=== PATIENT | male | born 1960 | race Caucasian/White ===

== ENCOUNTER 2020-12-17 15:41 | Outpatient (REF) | payer OTHER, SELFPAY ==
[2020-12-17 14:35] LABS: Anion Gap 8.4 mmol/L (3-11); BUN 21 mg/dL (7-18); CO2 25.6 mmol/L (21.0-32.0); Calcium 9.4 mg/dL (8.5-10.1); Calculated LDL 125 mg/dL (<100); Chloride 105 mmol/L (98-107); Cholesterol 229 mg/dL (<200); Glucose 104 mg/dL (74-106); HDL Cholesterol 58 mg/dL (40-60); Potassium 4.1 mmol/L (3.5-5.1); Sodium 139 mmol/L (136-145); Triglyceride 233 mg/dL (<150)
== END 2020-12-17 16:01 ==
LOC: NCHCN 15:41
PROVIDERS: PCP Physician Assistant; Visit Provider Physician Assistant
DX: I10 Essential (primary) hypertension (principal); Z12.5 Encounter for screening for malignant neoplasm of prostate
CPT/HCPCS: 80048; 80061; 84153

== ENCOUNTER 2021-01-18 07:14 | Day surgery (SDC) | payer OTHER, SELFPAY ==
[2021-01-18 07:41] VITALS: BP 149/93; PULSE 80; RESP 20; TEMP 36.6; O2SAT 95
[2021-01-18] MEDS: Lactated Ringers 1,000 ML 80 ML IV (07:56)
--- NOTE | 2021-01-18 08:50 | BONE_PTH ---
PATIENT: Keon Jackson LOC: [facility] U#:[id number] AGE/SX: 60/M ROOM: RE01/18/[address]: Bob Moran : 1960 BED: DIS: 01/18/2021 SPEC #: [id number] RECD: 01/18/21 12:43 STATUS: CUONG REQ #: [id number] RENETTA: 01/18/21 08:[address]: Bob Moran DEPT: Surgical Specimen RECD BY: Ida Galvez ENTERED: 01/18/21 12:44 SP TYPE: Bone OTHR DR: Terrence Ramos Tissues: 1 - BONE BX/CURRETTE NOT PATH FRACTURE Procedures: GROSS AND MICRO LEVEL 4 DECALCIFICATION Comments: [id number]
--- NOTE | 2021-01-18 09:12 | W.PM.DSUDISC ---
Discharge Plan Disposition Patient Disposition: HOME Condition: Good Discharge Details Reason For Visit: Resection exostosis left hallux Attending Provider: Bob Moran Primary Care Provider: Terrence Ramos Home Meds and New Rx's Prescriptions: New ibuprofen 600 mg tablet 600 mg PO Q6H PRN (Reason: pain and inflamation) Qty: 60 RF: 0 hydrocodone-acetaminophen 7.5-325 mg tablet 1 tab PO Q6H Qty: 9 RF: 0 Continued hydrochlorothiazide 12.5 mg tablet 12.5 mg PO DAILY RF: 0 Discharge Instructions Activity:: Elevate Remove Dressings/Wound Care:: Do Not Remove Shower/Bathe:: Cover Diet:: Normal Diet Discharge Orders Discharge Orders: Discharge Order (Routine); Ordered 01/18/21 Ordered By: Bob Moran DS: Diagnosis Discharge Diagnosis (1) Exostosis of bone of foot: Status: Acute
--- NOTE | 2021-01-18 09:19 | ROE_ITS ---
Date of service: 01/18/21 Time of Service: 09:19 Operative Note Operative Note Keon was brought to the operative suite placed in the supine position with the left foot was prepped and draped in the usual sterile podiatric fashion. Timeout was performed by standard protocol for safe surgery. The left great toe was anesthetized with 7 cc of a 50: 50 mixture, 1% lidocaine with epinephrine 1 100,000, 0.5% Marcaine plain. Esmarch tourniquet was applied at the base of the great toe. Attention was directed to the great toe where a large granuloma are seen emanating from the medial nail fold. The nail plate appears deeply cryptotic along the medial groove and fungal. With a straight hemostat, the medial edge of the nail plate was loosened from the nail bed and with double- action bone cutting forceps the nail was split at its point of curvature and avulsed free of the nailbed. The granuloma was then dissected up from the nailbed and surrounding the nail groove and excised at its base. Bony material was noted with in the granuloma tissue. The soft tissue mass was placed in a pathology container with formalin. A bony projection is then appreciated coming from the medial portion dorsal aspect of the distal phalanx of the hallux. The periosteum was split proximal and distal to the exostosis and periosteum lifted. Once the bone spur was exposed it was removed from the distal phalanx with an osteotome and mallet. This fragment of bone was sent to the same container as the granuloma to pathology in formalin. The base of the exostosis was then rasped smooth and copiously irrigated. The periosteum was repaired with simple interrupted suture 4-0 Vicryl. Gelfoam was applied into the nail groove followed by Xeroform gauze fluff compression dressings. Mitesh left the OR with vital signs stable vascular status intact sharp and sponge counts were correct. He will be followed by myself in the office next week.
== END 2021-01-18 09:59 | disposition home or self-care (01) ==
PROVIDERS: PCP Physician Assistant; Visit Provider Podiatrist
PROC: (CPT 28288; principal; 2021-01-18 08:45)
DX: M89.8X7 Other specified disorders of bone, ankle and foot (principal); M89.9 Disorder of bone, unspecified; L92.8 Other granulomatous disorders of the skin and subcutaneous tissue
CPT/HCPCS: 28124; 28043; 88305; 88304; 88311

== ENCOUNTER 2021-08-28 10:40 | Inpatient (IN) | payer OTHER, SELFPAY ==
[2021-08-28] VITALS (142 sets, daily range): BP systolic 115–212; BP diastolic 61–171; PULSE 53–137; RESP 15–35; TEMP 36.4–37.5; O2SAT 84–95
--- NOTE | 2021-08-28 11:00 | RT.EKG_ITS ---
APPROVED REPORT Exam: Resting ECG Reason for Exam: shortness of breath Patient Location: E HR:101 bpm ECG Measurements Heart Rate 101 AXIS NH 150 P 71 QRSd 106 QRS -43 QT 350 T 36 QTc 455 Conclusion Sinus tachycardia...rate> 99 Incomplete RBBB and LAFB...axis(240,-40), S>R II III aVF. Sinus. Incomplete RBBB and LAFB. No STEMI. I have reviewed and interpreted ECG and agree with software generated interpretation.
--- NOTE | 2021-08-28 11:18 | DI.CT_ITS ---
Exam(s) CT CHEST PE CTA EXAM: CT CHEST PE CTA CLINICAL HISTORY: shortness of breath, r/o pneumonia vs pe. TECHNIQUE: Imaging Protocol: CT angiography of the chest was performed using pulmonary embolus marlo col. Multi planar reconstructions were performed. 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 LUNGS: There are extensive ground-glass and confluent infiltrates throughout both lungs involving all lobes, not associated with pleural effusions.. MEDIASTINUM: There is adenopathy in left suprahilar region. No adenopathy in the aortopulmonic windo w nor in the anterior mediastinal fat. Slightly increased lymph nodes are noted in the subcarinal re gion. Actual hilar regions exhibit no obvious adenopathy scratch CARDIAC: Cardiomegaly. No pericardial effusion.Caliber of the thoracic aorta is within normal limits . There is no significant shift of the interventricular septum. PARTIALLY VISUALIZED UPPERMOST ABDOMEN: Not included OSSEOUS: No significant osseous lesions.. IMPRESSION: 1. Study is positive for pulmonary emboli in right lower lobe pulmonary arteries.. 2. Extensive bilateral pulmonary infiltrates, not associated with pleural effusions. Recommend testi ng for Covid 19 3. Cardiomegaly. No pericardial effusion RADIATION DOSE DELIVERED: 719.75mGy.cm Total DLP DATA REPOSITORY: All CT scans at this facility are submitted to the National Radiology Data Registry (NRDR) Dose Index Registry (DIR) with the [employer] ([employer]). RADIATION OPTIMIZATION: All CT scans at this facility use at least one of these dose optimization te chniques: automated exposure control; mA and/or kV adjustment per patient size (includes targeted exa ms where dose is matched to clinical indication); or iterative reconstruction.
[2021-08-28 11:21] LABS: Abs Immature Grans 0.02 10^3/uL (0.0-0.06); Absolute Basophil Count 0.01 10^3/uL (0.0-0.2); Absolute Lymphocyte Count 0.64 10^3/uL (1.2-3.4); Absolute Monocyte Count 0.28 10^3/uL (0.1-0.8); Absolute Neutrophil Count 4.49 10^3/uL (1.2-6.7); Basophils % 0.2; HCT 44.9 % (40.0-50.0); HGB 14.8 g/dL (13.5-17.5); Immature Grans % 0.4; Lymphocytes % 11.8; MPV 10.2 fL (8.0-11.0); Monocytes % 5.1; Neutrophils % 82.5; Nucleated RBC 0 %; Platelet Count 150 10^3/uL (130-400); RBC 5.28 10^6/uL (4.36-5.78); RDW 14.3 % (11.8-14.1); RDW-SD 44.3 fL; WBC 5.44 10^3/uL (4.4-10.8)
--- NOTE | 2021-08-28 11:21 | ED.GENADUL_ITS ---
Discharge Plan Disposition Patient Disposition: [facility] INPATIENT Condition: Serious Discharge Details Clinical Impression: Pneumonia due to COVID-19 virus, Pulmonary embolism, Hypoxia, Acute respiratory distress Admit Date/Time: 08/28/21 13:45 Admit Provider: Rossy Richardson Attending Provider: Rossy Richardson Primary Care Provider: Terrence Ramos ED Provider: Dorothy Baird Discharge Data Discharge Date/Time-TO BE ENTERED AT DEPARTURE: 08/28/21 21:51 Medical Decision Making 1110 -- 60-year-old male with a history of morbid obesity and hypertension diagnosed with COVID-19 4 days ago presents with increasing dyspnea. Patient ambulated back to the ED room. His oxygen saturation is 84% on room air, increased to mid 90s on 3 L. He has diminished breath sounds throughout but no obvious crackles or wheezing. He is speaking in full sentences and appears nontoxic. Consider Covid pneumonia versus PE. Will obtain screening labs, CT chest, IV Solu-Medrol, duo nebs, fluids and reassess. 1200 -- Labs reviewed. White blood cell count 5.44. Hemoglobin 14.8. Lactate 1. AST 82. ALT 75. Troponin negative. Rapid Covid swab positive. 1330 -- CT chest results: IMPRESSION: 1. Study is positive for pulmonary emboli in right lower lobe pulmonary arteries.. 2. Extensive bilateral pulmonary infiltrates, not associated with pleural effusions. Recommend testing for Covid 19. 3. Cardiomegaly. No pericardial effusion. Patient reassessed and he states his breathing is slightly better but not significantly improved. His breath sounds have somewhat improved throughout. O2 saturations continue to remain in the high 80s on room air, increased to the mid 90s on 3 L NC O2. He appears to be breathing somewhat better, but his body habitus may be contributing to his difficulty laying back on the stretcher and he is sitting on the side of the stretcher. We will admit patient to the hospital for COVID-19 pneumonia in the setting of supplemental oxygen requirement, anticoagulation for PE and additional COVID-19 treatment. We will give another albuterol neb and Ativan. We will continue IV fluid hydration. Patient informed of his results and is agreeable with plan for admission. Case discussed with hospitalist who accepts patient for admission. Will order a dose of Lovenox SC. No recommendations for antibiotics at this time. Medical Records Medical records reviewed: Yes I reviewed the patient's medical records. Imaging Data Radiologic Study: Radiologist's impression: CT CHEST PE CTA CLINICAL HISTORY: shortness of breath, r/o pneumonia vs pe. TECHNIQUE: Imaging Protocol: CT angiography of the chest was performed using pulmonary embolus protocol. Multi planar reconstructions were performed. 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 LUNGS: There are extensive ground-glass and confluent infiltrates throughout both lungs involving all lobes, not associated with pleural effusions.. MEDIASTINUM: There is adenopathy in left suprahilar region. No adenopathy in the aortopulmonic window nor in the anterior mediastinal fat. Slightly increased lymph nodes are noted in the subcarinal region. Actual hilar regions exhibit no obvious adenopathy scratch CARDIAC: Cardiomegaly. No pericardial effusion.Caliber of the thoracic aorta is within normal limits. There is no significant shift of the interventricular septum. PARTIALLY VISUALIZED UPPERMOST ABDOMEN: Not included OSSEOUS: No significant osseous lesions.. IMPRESSION: 1. Study is positive for pulmonary emboli in right lower lobe pulmonary arteries.. 2. Extensive bilateral pulmonary infiltrates, not associated with pleural effusions. Recommend testing for Covid 19 3. Cardiomegaly. No pericardial effusion Lab Data Lab results reviewed: Yes I reviewed the patient's lab results. ECG Data Attestation: I personally reviewed and interpreted this ECG (s) as follows: Interpretation: rate of 101, sinus, no acute ST elevation or depression. GA 150. QTc 455. HPI General Mode of arrival: ambulatory . Date/Time Provider Initiated Documentation: 08/28/21 10:53 . Limitations to Documentation: no limitations . Information obtained by: patient . HPI Narrative: Patient is a 60-year-old male with a history of morbid obesity and hypertension who was diagnosed with Covid 4 days ago presents with increasing shortness of breath over the last few days. Patient states he developed cold-like symptoms last week and his employer referred him for outpatient Covid testing which was positive 4 days ago. He is reported to still be going to work. He is not vaccinated for COVID. He states over the past few days he has had increasing cough and shortness of breath. He also admits to significant fatigue and decreased appetite. He denies any known fever, loss of sense of smell or taste, vomiting or diarrhea. Related Data Home Medications Medication Instructions Recorded Confirmed lisinopril-hydrochlorothiazide 1 tab PO DAILY 08/29/21 08/29/21 Allergies Allergy/AdvReac Type Severity Reaction Status Date / Time No Known Allergies Allergy Unverified 01/18/21 07:57 General Stated Complaint: RespSymp PK: 2 Review of Systems All systems reviewed & are unremarkable except as noted in HPI and below Constitutional Constitutional: Reports as per HPI, Denies chills, Reports fatigue, Denies fever(s) and Reports poor appetite Eyes Eyes: Denies blurry vision ENT Ears, Nose, Mouth, and Throat: Denies dizziness, Denies sore throat and Denies throat swelling Cardiovascular Cardiovascular: Denies chest pain and Reports dyspnea Respiratory Respiratory: Reports cough and Reports dyspnea Gastrointestinal Gastrointestinal: Denies abdominal pain, Denies diarrhea and Denies vomiting Genitourinary Genitourinary: Denies hematuria and Denies dysuria Musculoskeletal Musculoskeletal: Denies back pain and Denies numbness Integumentary/Breasts Skin/Breast: Denies lesions and Denies rash Neurologic Neurologic: Denies dizziness, Denies localized weakness and Denies numbness Endocrine Endocrine: Reports fatigue Allergic/Immunologic Allergic/Immunologic: Denies throat swelling [facility] Medical History (Updated 08/31/21 @ 08:23 by Dorothy Baird DO) History of hypertension Hyperlipidemia Obesity, morbid, BMI 40.0-49.9 Surgical History (Updated 08/28/21 @ 20:04 by Rossy Richardson MD) Hx of hernia repair L inguinal hernia repair Status post left foot surgery Family History (Updated 08/28/21 @ 20:04 by Rossy Richardson MD) Mother Diabetes Paternal Grandmother Cancer Paternal Aunt Cancer Social History Smoking/Tobacco Use Status: Current every day Tobacco Type: e-cigarettes Smoking risk assessment performed?: Yes Alcohol Intake: current Alcohol Intake frequency: a few times a week Alcohol type: beer Drug use: Never Substance use type: does not use Do you feel safe at home: Yes Additional Social history: lives alone Exam Const General: cooperative and no acute distress Nutritional Appearance: obese morbidly obese Orientation: alert, awake and oriented x3 HENMT Head: normal to inspection Face and sinus: normal facial exam Eyes General: appearance normal, both eyes and all related structures EOM: EOM intact bilaterally Neck Neck: normal visual inspection and No submandibular swelling Lymphatic: no lymphadenopathy noted Chest Chest: normal inspection of the chest and no tenderness Resp Effort & Inspection: normal respiratory effort and able to speak in complete sentences Auscultation: diminished lung sounds bilaterally throughout Cardio Rate: tachycardic Rhythm: regular rhythm GI Inspection: normal to inspection and obesity Palpation: soft, not firm, not rigid and nontender Auscultation: normal bowel sounds Skin General skin exam: no rashes or lesions noted Neuro General: patient alert, patient awake and patient oriented x3 Cognition: normal cognition Speech: speech normal Motor: muscle tone normal throughout Sensory Exam: no sensory deficits noted Extrem General: normal to inspection, full ROM, capillary refill normal, no calf tenderness bilaterally and no edema Psych Appearance: grossly normal Mental Status: mental status grossly normal Speech and Movement: speech and movement normal Affect: normal affect Course Vital Signs Vital signs: Vital Signs Temperature 99.5 F 08/28/21 10:49 Pulse 107 H 08/28/21 10:49 Blood Pressure 139/90 08/28/21 10:49 Pulse Oximetry 84 L 08/28/21 10:49 Temperature 99.5 F 08/28/21 10:49 Temperature Source Oral 08/28/21 10:49 Pulse 107 H 08/28/21 10:49 Blood Pressure 139/90 08/28/21 10:49 Pulse Oximetry 84 L 08/28/21 10:49 Oxygen Delivery Method Room Air 08/28/21 10:49 Oxygen Flow Rate 0 08/28/21 10:49 Pain Level 0 08/28/21 10:49 Critical Care Time Critical Care Time Critical Care Time: Yes Total Critical Care Time: 30 Attestation: I spent 30 minutes of critical care time with this patient. This does not include time spent on separately reported billable procedures.
[2021-08-28] MEDS: Normal Saline 1,000 ML 1000 ML IV (11:35)
[2021-08-28 11:39] LABS: ALT 75 U/L (16-63); AST 82 U/L (15-37); Albumin 2.9 g/dL (3.4-5.0); Alkaline Phosphatase 74 U/L (46-116); Anion Gap 6.8 mmol/L (3-11); BUN 13 mg/dL (7-18); Bilirubin, Total 0.5 mg/dL (0.2-1.0); CO2 30.2 mmol/L (21.0-32.0); CREATININE 1.1 mg/dL (0.70-1.30); Calcium 7.8 mg/dL (8.5-10.1); Chloride 94 mmol/L (98-107); Glucose 108 mg/dL (74-106); Potassium 3.7 mmol/L (3.5-5.1); Sodium 131 mmol/L (136-145)
[2021-08-28] MEDS: methylPREDNISolone SUCC 125 MG VIAL IVP (11:39)
[2021-08-28 11:40] LABS: Troponin I < 0.05 ng/mL (<0.06)
[2021-08-28 11:46] LABS: Source Nasal/Nares
[2021-08-28] MEDS: Albuterol/Ipratropium 3 ML UPD VIAL UPD (11:51)
[2021-08-28] MEDS: Normal Saline - Diluent 50 ML VIAL IV (12:29)
[2021-08-28] MEDS: Omnipaque 350 MG/ML 100 ML BTL IV (12:29)
[2021-08-28 12:51] LABS: COVID-19 PCR POSITIVE (Negative)
--- NOTE | 2021-08-28 14:11 | W.PM.HP.N ---
Date of service: 08/28/21 Time of Service: 19:18 Assessment and Plan Assessment and plan (1) COVID-19: Status: Acute Assessment and plan: Admit to ICU. Complicated by acute PEs. Treat with remdesivir, dexamethasone, baricitinib, anticoagulation. CPAP - encourage IS/acapella/proning. Will give 1 dose of lasix and no further IVF. No indication for antibiotics. Trend inflammatory markers. Supplement vitamin C/D. NPO. Full code. (2) Acute pulmonary embolism: Status: Acute Assessment and plan: Based on patient's weight, the patient is receiving lovenox 150 mg SC Q12hrs Obtain venous dopplers of BLEs. (3) Acute respiratory failure with hypoxia: Status: Acute Assessment and plan: Multifactorial - due to COVID-19 as well as acute PE. (4) Hypertension: Status: Chronic Assessment and plan: Holding outpatient hypertensives today as he received IV contrast. Consider resuming them tomorrow. (5) Discharge planning issues: Status: Acute Assessment and plan: Full code Admit to ICU. Total Critical Care Time 45 minutes. History of Present Illness History of Present Illness Chief Complaint: shortness of breath and cough Narrative: Mr Jackson is a 60 year old male with PMHx of hypertension, hyperlipidemia, obesity with BMI of 47.5, who was not vaccinated against COVID-19 and started experiencing symptoms of COVID-19 on 08/20/21. He was diagnosed with COVID-19 on 08/22/21, who presented to [facility] ED today complaining of cough and shortness of breath. The patient states his symptoms started 9 days ago. He describes a headache, weakness, stuffy nose, DORANTES, cough which was minimally productive. Denies chest pain. He was noted to be saturating 84% on RA. He was placed on 3L of O2 by NC. CTA of the chest revealed bilateral pulmonary infiltrates consistent with COVID-19 as well as pulmonary emboli in right lower lobe pulmonary arteries. The patient was initiated on therapeutic SC lovenox and hospitalist admission was requested. Since then, the patient's oxygen had to be increased to 6L by NC, after which he was transitioned to CPAP with FiO2 of 50%. Review of Systems All systems reviewed & are unremarkable except as noted in HPI and below [facility] Medical History (Updated 08/28/21 @ 20:08 by Rossy Richardson MD) History of hypertension Hyperlipidemia Obesity, morbid, BMI 40.0-49.9 Surgical History (Updated 08/28/21 @ 20:04 by Rossy Richardson MD) Hx of hernia repair L inguinal hernia repair Status post left foot surgery Family History (Updated 08/28/21 @ 20:04 by Rossy Richardson MD) Mother Diabetes Paternal Grandmother Cancer Paternal Aunt Cancer Social History Smoking/Tobacco Use Status: Current every day Tobacco Type: e-cigarettes Smoking risk assessment performed?: Yes Alcohol Intake: current Alcohol Intake frequency: a few times a week Alcohol type: beer Drug use: Never Substance use type: does not use Do you feel safe at home: Yes Additional Social history: lives alone Meds Allergies and Home Medications Allergies Allergy/AdvReac Type Severity Reaction Status Date / Time No Known Allergies Allergy Unverified 01/18/21 07:57 Home Medications Medication Instructions Recorded Confirmed Type hydrochlorothiazide 12.5 mg PO DAILY 01/18/21 01/18/21 History hydrocodone-acetaminophen 1 tab PO Q6H #9 tab 01/18/21 Rx ibuprofen 600 mg PO Q6H PRN #60 tab 01/18/21 Rx Exam Narrative Exam Narrative: General: Pleasant obese male who looks sick, A&Ox3 on CPAP, no dyspneic/tachypenic Neurological: A&ox3, no focal deficits Psychiatric: Appropriate speech pattern/content Skin: Visible skin intact HEENT: Atraumatic, normocephalic, EOMI, MMM, wearing CPAP - unable to examine oropharynx, no submandibular or cervical lymphadenopathy, no goiter or JVD Cardiovascular: RRR, no m/r/g Lungs: rales at B bases, sounds wet Gastrointestinal: soft, nontender, nondistended Genitourinary: deferred Extremities: trace edema to BLE's - symmetric, 2+ pedal pulses, no c/c. Results Imaging Additional studies: CTA chest: 1. Study is positive for pulmonary emboli in right lower lobe pulmonary arteries.. 2. Extensive bilateral pulmonary infiltrates, not associated with pleural effusions. Recommend testing for Covid 19 3. Cardiomegaly. No pericardial effusion EKG: ST, HR 101, incomplete RBBB/LAFB, no acute ischemia Labs Result diagrams: 08/28/21 11:10 08/28/21 11:10 Labs: Laboratory Results - last 24 hr 08/28/21 08/28/21 08/28/21 11:10 11:10 11:10 WBC 5.44 RBC 5.28 Hgb 14.8 Hct 44.9 MCV 85.0 MCH 28.0 MCHC 33.0 RDW 14.3 H Plt Count 150 MPV 10.2 Immature Gran % 0.4 Neutrophils % 82.5 Lymphocytes % 11.8 Monocytes % 5.1 Eosinophils % 0.0 Basophils % 0.2 Nucleated RBC % 0 Absolute Neutrophils 4.49 Absolute Lymphocytes 0.64 L Absolute Monocytes 0.28 Absolute Eosinophils 0.00 Absolute Basophils 0.01 VBG Lactate 1.0 Sodium 131 L Potassium 3.7 Chloride 94 L Carbon Dioxide 30.2 Anion Gap 6.8 BUN 13 Creatinine 1.1 Estimated GFR/1.73 m2 >= 60.00 Glucose 108 H Calcium 7.8 L Magnesium 2.0 Total Bilirubin 0.5 AST 82 H ALT 75 H Alkaline Phosphatase 74 Troponin I < 0.05 Total Protein 7.0 Albumin 2.9 L COVID-19 Source SARS-CoV-2 (PCR) 08/28/21 11:35 WBC RBC Hgb Hct MCV MCH MCHC RDW Plt Count MPV Immature Gran % Neutrophils % Lymphocytes % Monocytes % Eosinophils % Basophils % Nucleated RBC % Absolute Neutrophils Absolute Lymphocytes Absolute Monocytes Absolute Eosinophils Absolute Basophils VBG Lactate Sodium Potassium Chloride Carbon Dioxide Anion Gap BUN Creatinine Estimated GFR/1.73 m2 Glucose Calcium Magnesium Total Bilirubin AST ALT Alkaline Phosphatase Troponin I Total Protein Albumin COVID-19 Source Nasal/Nares SARS-CoV-2 (PCR) POSITIVE A* Last Vital Signs Temp 37.5 C 08/28/21 10:49 Pulse 101 H 08/28/21 13:31 Resp 26 H 08/28/21 13:31 BP 132/74 08/28/21 13:31 Pulse Ox 90 L 08/28/21 13:31
[2021-08-28] MEDS: LORazepam 2 MG/ML VIAL 1 MG IVP (15:05)
[2021-08-28] MEDS: Dexamethasone 4 MG/ML VIAL 6 MG IVP (15:05)
--- NOTE | 2021-08-28 15:23 | NUR.NOTE ---
pt provided with meal tray Nursing Note:
[2021-08-28] MEDS: Normal Saline 1,000 ML 150 ML IV (15:35)
[2021-08-28] MEDS: REMDESIVIR 200 MG in Normal Saline 250 ML 250 MG IVPB (15:41)
[2021-08-28] MEDS: Albuterol 2.5 MG/3 ML INH SOLN VIAL 5 MG UPD (15:44)
[2021-08-28 15:46] LABS: LDH 714 U/L (85-227)
[2021-08-28 16:38] LABS: Ferritin > 2000 ng/mL (26-388)
[2021-08-28 16:42] LABS: Procalcitonin 0.1 ng/mL
[2021-08-28] MEDS: Melatonin 3 MG TAB PO (22:28)
[2021-08-28] MEDS: Furosemide 20 MG/2 ML VIAL IVP (22:28)
[2021-08-28] MEDS: Ascorbic Acid 500 MG TAB 1000 MG PO (22:28)
[2021-08-29] VITALS (41 sets, daily range): BP systolic 102–169; BP diastolic 55–129; PULSE 79–98; RESP 15–33; TEMP 33.8–37.1; O2SAT 84–97
[2021-08-29] MEDS: Albuterol/Ipratropium 3 ML UPD VIAL UPD (02:22)
--- NOTE | 2021-08-29 07:35 | W.PM.PROGNOT ---
Date of Service Date of service: 08/29/21 Time of Service: 13:01 Assessment and Plan Assessment and plan (1) COVID-19: Status: Acute Assessment and plan: Complicated by acute PEs. Keep in ICU. Treat with remdesivir, dexamethasone, baricitinib, anticoagulation. Continue CPAP - encourage IS/acapella/proning. No indication for antibiotics. Trend inflammatory markers. Supplement vitamin C/D. Permit clears. (2) Acute pulmonary embolism: Status: Acute Assessment and plan: Continue lovenox 150 mg SC Q12hrs. No evidence of RV strain on echo. Await venous dopplers of BLEs. (3) Acute respiratory failure with hypoxia: Status: Acute Assessment and plan: Multifactorial - due to COVID-19 as well as acute PE. Wean O2 as tolerated. As above (4) Hypertension: Status: Chronic Assessment and plan: Holding outpatient hypertensives - not requiring BP meds right now. (5) Vitamin D deficiency: Status: Acute Assessment and plan: Replete (6) Discharge planning issues: Status: Acute Assessment and plan: Full code Keep in ICU. Total Critical Care Time 45 minutes. Subjective Subjective Interval history since last seen: Mr Jackson states he is feeling a little bit better. On CPAP 14 PEEP, 60% FiO2 because he was desaturated when moving on 50% FiO2. Was on high flow for 1.5 hrs, FIO 80%, 60L, did not do well, so back on CPAP. Endorses dizziness when changing positions. Denies chest pain, shortness of breath, nausea, diarrhea. Cough is productive, but he is not sure what the color of the sputum is. Good UOP. Got lasix last night. 1500 out in response. Encouraged to prone and is laying on his right side right now. Exam Narrative Exam Narrative: General: Pleasant obese male who looks sick, A&Ox3, no dyspnea/tachypnea while on CPAP (FiO2 60%) HEENT: EOMI, MMM Cardiovascular: RRR, no m/r/g Lungs: rales at R base, sounds wet Gastrointestinal: soft, nontender, nondistended Extremities: no edema to BLE's - symmetric, 2+ pedal pulses, no c/c. Objective Last Vital Signs Temp 36.6 C 08/29/21 03:30 Pulse 90 08/29/21 03:30 Resp 27 H 08/29/21 03:30 BP 115/71 08/28/21 23:01 Pulse Ox 92 08/29/21 03:30 Laboratory Results - last 24 hr 08/28/21 08/28/21 08/28/21 11:10 11:10 11:10 WBC 5.44 RBC 5.28 Hgb 14.8 Hct 44.9 MCV 85.0 MCH 28.0 MCHC 33.0 RDW 14.3 H Plt Count 150 MPV 10.2 Immature Gran % 0.4 Neutrophils % 82.5 Lymphocytes % 11.8 Monocytes % 5.1 Eosinophils % 0.0 Basophils % 0.2 Nucleated RBC % 0 Absolute Neutrophils 4.49 Absolute Lymphocytes 0.64 L Absolute Monocytes 0.28 Absolute Eosinophils 0.00 Absolute Basophils 0.01 VBG Lactate 1.0 Sodium 131 L Potassium 3.7 Chloride 94 L Carbon Dioxide 30.2 Anion Gap 6.8 BUN 13 Creatinine 1.1 Estimated GFR/1.73 m2 >= 60.00 Glucose 108 H Calcium 7.8 L Magnesium 2.0 Ferritin Total Bilirubin 0.5 AST 82 H ALT 75 H Alkaline Phosphatase 74 Lactate Dehydrogenase Troponin I < 0.05 C-Reactive Protein Total Protein 7.0 Albumin 2.9 L Procalcitonin COVID-19 Source SARS-CoV-2 (PCR) 08/28/21 08/28/21 08/28/21 11:10 11:10 11:35 WBC RBC Hgb Hct MCV MCH MCHC RDW Plt Count MPV Immature Gran % Neutrophils % Lymphocytes % Monocytes % Eosinophils % Basophils % Nucleated RBC % Absolute Neutrophils Absolute Lymphocytes Absolute Monocytes Absolute Eosinophils Absolute Basophils VBG Lactate Sodium Potassium Chloride Carbon Dioxide Anion Gap BUN Creatinine Estimated GFR/1.73 m2 Glucose Calcium Magnesium Ferritin > 2000 H Total Bilirubin AST ALT Alkaline Phosphatase Lactate Dehydrogenase 714 H Troponin I C-Reactive Protein 12.60 H Total Protein Albumin Procalcitonin 0.1 COVID-19 Source Nasal/Nares SARS-CoV-2 (PCR) POSITIVE A* Objective Narrative Objective Narrative: Echo; The left ventricle appeared normal in size, wall thickness and systolic function. Estimated ejection fraction was 60 to 65%. Segmental wall motion could not be assessed The right ventricle appeared normal in size, with normal systolic function Both atria were normal in size Valves were not well visualized but appeared unremarkable within the limits of the study Mildly dilated ascending aorta measuring 3.96 cm
[2021-08-29 07:59] LABS: Abs Immature Grans 0.03 10^3/uL (0.0-0.06); Absolute Basophil Count 0.01 10^3/uL (0.0-0.2); Absolute Lymphocyte Count 0.93 10^3/uL (1.2-3.4); Absolute Neutrophil Count 4.56 10^3/uL (1.2-6.7); Basophils % 0.2; HCT 43.1 % (40.0-50.0); HGB 14.7 g/dL (13.5-17.5); Immature Grans % 0.5; MCH 28.7 pg (27.0-33.0); MCHC 34.1 % (32.0-36.0); MCV 84.2 fL (80-95); MPV 10.4 fL (8.0-11.0); Monocytes % 5.1; Neutrophils % 78.2; Nucleated RBC 0 %; Platelet Count 187 10^3/uL (130-400); RBC 5.12 10^6/uL (4.36-5.78); RDW 14.2 % (11.8-14.1); RDW-SD 43.5 fL; WBC 5.83 10^3/uL (4.4-10.8)
--- NOTE | 2021-08-29 08:00 | DI.US_ITS ---
Exam(s) US EXTREMITY VENOUS BI EXAM: US EXTREMITY VENOUS BI CLINICAL HISTORY: PE, concern for DVT. TECHNIQUE: Bilateral lower extremity venous ultrasound performed using grayscale, color-flow, and sp ectral Doppler analysis. COMPARISON: No exams were available for comparison FINDINGS: The bilateral common femoral, femoral and popliteal veins demonstrate normal compressibility, augment ation, and color Doppler. The posterior tibial veins are patent. IMPRESSION: Right: Negative for DVT Left: Negative for DVT DATA REPOSITORY:
--- NOTE | 2021-08-29 08:00 | DI.US_ITS ---
APPROVED REPORT EXAM: Comprehensive 2D, Doppler, and color-flow Echocardiogram Patient Location: In-Patient Room/Bed: [id number] Conservation Science Officer: Jana Brush RDCS (AE) Indications: Acute PE, HTN, COVID Other Information Study Quality: Fair. Technically limited study due to body habitus, inability to position patient. Conclusion Technically difficult study The left ventricle appeared normal in size, wall thickness and systolic function. Estimated ejection fraction was 60 to 65%. Segmental wall motion could not be assessed The right ventricle appeared normal in size, with normal systolic function Both atria were normal in size Valves were not well visualized but appeared unremarkable within the limits of the study Mildly dilated ascending aorta measuring 3.96 cm Wall motion Left Ventricle The left ventricle is normal size. The overall left ventricular systolic function appears normal. The re is normal left ventricular wall thickness. Regional wall motion is not well visualized but grossly normal. There is no ventricular septal defect visualized. LVEF is 60-65%. Right Ventricle Right ventricle is grossly normal in size. Right ventricular systolic function is grossly normal. Atria The left atrium size is normal. The right atrium size is normal. The interatrial septum is intact wit h no evidence for an atrial septal defect. Aortic Valve The aortic valve is not well visualized Number of aortic valve leaflets could not be assessed. There is no aortic valvular stenosis. No aortic regurgitation is present. Mitral Valve The mitral valve is normal in structure. No evidence of mitral valve stenosis. Trace mitral regurgita tion. Tricuspid Valve Tricuspid valve is not well visualized. There is no tricuspid valve stenosis. Trace tricuspid regurgi tation. Unable to assess PA pressure. Pulmonic Valve Pulmonic valve is not well visualized. No evidence of pulmonic valve stenosis. There is no pulmonic v alvular regurgitation. Great Vessels The aortic root is normal in size. The ascending aorta is mildly dilated. IVC is normal in size and c ollapses >50% with inspiration. Pericardium There is no pericardial effusion. 2D Dimensions IVSD d PLAX 1.24 cm M: 0.6-1.2 LVPW d PLAX 1.21 cm M: 0.6 - 1.2 LVID d PLAX 4.78 cm M: 4.2 - 5.8 LVDs 3.30 cm M: 2.5 - 4.0 Ao Root d 3.12 cm M: 3.1 - 3.7 Ao Asc Diam d 3.96 cm M: 2.6 - 3.4 LV EF Maxwellichholmili 58.3 % FS 30.75 % M-Mode TAPSE 3.08 cm (M/F) >1.7 LV Diastology E/A Ratio 0.9 MV E Vmax 0.66 (0.4-1.3 m/s) MV A Vmax 0.75 (0.4-1.3 m/s) MV E/A Ratio 0.85 Aortic Valve LVOT Area 3.10 cm2 AoV Area Vmax 2.68 cm2 LVOT Vmax 1.22 m/s AoV Area/ BSA (Vmax) 0.95 cm2/m2 LVOT Mean John Paul. 0.82 m/s BENEDICT Mean John Paul. 2.38 cm2 LVOT Peak Grad 6.0 mmHg BENEDICT Mean John [place]. Index 0.84 cm2/m2 LVOT Mean Grad 3.1 mmHg LVOT VTI 0.218 m LVOT Diam s 1.95 cm AoV Vmax 1.42 m/s Velocity Ratio 0.85 AoV Mean John Paul. 1.07 m/s AoV Peak Grad 8.0 mmHg LVOT SV 67.62 mL AoV Mean Grad 5.0 mmHg AoV VTI 0.258 m AoV Area VTI 2.62 cm2 AoV Area/ BSA (VTI) 0.93 cm/m2 Mitral Valve MV DT 305 (160-240 msec) MV PHT 88 msec MV Area PHT 2.49 cm2 MV VTI 0.237 m MV Area VTI 2.86 (4.0-6.0 cm2) Pulmonary Valve PV Vmax 1.16 (0.5-1.5 m/s) RVOT Peak Gr. 2.81 mmHg PV Peak Grad 5.4 mmHg RVOT Mean Gr. 1.80 mmHg PV Mean Grad 3.8 mmHg RVOT VTI 0.149 m PV VTI 0.281 m RVOT Vmax 0.84 m/s
[2021-08-29 08:18] LABS: ALT 74 U/L (16-63); AST 70 U/L (15-37); Albumin 2.8 g/dL (3.4-5.0); Alkaline Phosphatase 73 U/L (46-116); Anion Gap 9.9 mmol/L (3-11); BUN 18 mg/dL (7-18); Bilirubin, Direct 0.2 mg/dL (0.0-0.2); Bilirubin, Total 0.6 mg/dL (0.2-1.0); C-Reactive Protein 12.11 mg/dL (0.0-0.3); CO2 26.1 mmol/L (21.0-32.0); Calcium 8.2 mg/dL (8.5-10.1); Chloride 101 mmol/L (98-107); Glucose 146 mg/dL (74-106); Magnesium 2.5 mg/dL (1.8-2.4); Potassium 3.7 mmol/L (3.5-5.1); Sodium 137 mmol/L (136-145); Total Protein 6.8 g/dL (6.4-8.2)
[2021-08-29 08:19] LABS: Troponin I < 0.05 ng/mL (<0.06)
[2021-08-29 08:22] LABS: Hemoglobin A1C 5.8 % (<5.7)
[2021-08-29] MEDS: Cholecalciferol (Vitamin D3) 1,000 UNIT TAB 2000 UNITS PO (08:29)
[2021-08-29] MEDS: Ascorbic Acid 500 MG TAB 1000 MG PO ×2 (08:29→19:52)
[2021-08-29 08:34] LABS: D-Dimer 986 ng/mlFEU (<500)
[2021-08-29 08:59] LABS: Vitamin D 25 Total 11.3 ng/mL (30-100)
--- NOTE | 2021-08-29 09:01 | PDOC.CMIN ---
- If Service Date Differs Date of service: 08/29/21 Time of Service: 09:01 Care Management Initial Assess REASON FOR HOSPITALIZATION:: COVID-19, Acute hypoxic respiratory failure PAST MEDICAL HISTORY/PAST SURGICAL HISTORY:: History of hypertension. Hyperlipidemia. Obesity, morbid, BMI 40.0-49.9. Hx of hernia repair. L inguinal hernia repair. 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 His sister Shyanne resides in [place] and is supportive. CURRENT FUNCTIONAL STATUS:: On covid precautions in ICU. His respiratory status is described as SOB, with shallow depth and tachypnea pattern. He is 92% on CPAP. He remains on scheduled updrafts as well. He remains on bedrest, up to the commode when needed and is on a clear diet at this time, having jello and gingerale. ADVANCE DIRECTIVES:: None on file. Has patient been provided with info about the portal/API?: Yes Did the patient sign up for the portal?: Yes (Previously) CODE STATUS:: Full Code INSURANCE COVERAGE / FINANCIAL ISSUES:: [employer] CURRENT HOME/COMMUNITY SERVICES/EQUIPMENT:: None, currently PRIMARY CARE PHYSICIAN:: Terrence Ramos POTENTIAL DISCHARGE NEEDS:: Follow up appointments. PATIENT/FAMILY EDUCATION NEEDS:: Review discharge instructions, discuss Ask Me Three. ANTICIPATED BARRIERS TO DISCHARGE:: None identified. TRANSPORTATION:: Via private vehicle with family. PLAN:: Anticipate Keon will return home when ready per MD. He continues to be treated for COVID in the ICU, and remains on precautions. CM continues to follow.
[2021-08-29 09:07] LABS: Ferritin > 2000 ng/mL (26-388)
[2021-08-29] MEDS: Ipratropium/Albuterol 4 GM 120 PUFF INH IH ×3 (13:10→19:53)
[2021-08-29] MEDS: Dexamethasone 4 MG/ML VIAL 6 MG IVP (13:16)
--- NOTE | 2021-08-29 14:16 | PHA.REVIEW ---
Pharmacy Admission Review - Admission Clinical Review (Last Updated 08/28/21 @ 19:23 by Rossy Richardson MD) Vitamin D deficiency (Acute) Acute respiratory failure with hypoxia (Acute) Discharge planning issues (Acute) Acute pulmonary embolism (Acute) COVID-19 (Acute) No Known Allergies Allergy (Unverified 01/18/21 07:57) Resuscitation Status Full Code Height 6 ft 2 in Weight 167.829 kg - Renal Dosing Renal Dosing: BUN 18 mg/dL (7-18) 08/29/21 07:20 Creatinine 1.0 mg/dL (0.70-1.30) 08/29/21 07:20 Medications needing adjustments: Reviewed (Crcl over 100 mL/min if using adjusted body weight, current meds okay.) - Anticoagulation Anticoagulation: Hgb 14.7 g/dL (13.5-17.5) 08/29/21 07:20 Hct 43.1 % (40.0-50.0) 08/29/21 07:20 Plt Count 187 10^3/uL (130-400) 08/29/21 07:20 Creatinine 1.0 mg/dL (0.70-1.30) 08/29/21 07:20 DVT Prophylaxis: N/A Therapeutic Anticoagulation: Reviewed Medications: Enoxaparin - Opiate Usage Evaluate Pain Scale/Pains Meds: N/A - Relevant Labs Sodium 137 mmol/L (136-145) 08/29/21 07:20 Potassium 3.7 mmol/L (3.5-5.1) 08/29/21 07:20 Chloride 101 mmol/L (98-107) 08/29/21 07:20 Magnesium 2.5 mg/dL (1.8-2.4) H 08/29/21 07:20 C-Reactive Protein 12.11 mg/dL (0.0-0.3) H 08/29/21 07:20 Electrolytes, C-Reactive P, ESR: Reviewed - DM Control DM Control: Glucose 146 mg/dL (74-106) H 08/29/21 07:20 Hemoglobin A1c 5.8 % (<5.7) H 08/29/21 07:20 Insulin Dosing: Reviewed (A1c and BG slightly elevated, no meds currently ordered.) - Heart Failure/NH Heart Failure/NH: Troponin I < 0.05 ng/mL (<0.06) 08/29/21 07:20 EF%, MICHAEL's, B-Blockers, Diuretics: Reviewed - BP Control BP Control: Blood Pressure 129/82 Blood Pressure 128/71 Blood Pressure 124/83 Blood Pressure 125/84 Blood Pressure 117/67 Blood Pressure 119/68 If elevated: Reviewed (BP has been up and down a little but mostly within normal limits so far today.) - Qtc Review If Elevated: N/A (Qtc 455 on admission) - IV to PO Switch IV Medications: Reviewed - Home Meds Home Med List reviewed: Intervened (Per PCP's office, pt is only taking lisinopril/HCTZ.) Relevent Home Meds Not ordered & why?: lisinopril/HCTZ - Current meds Current Medication Order Review: Intervened (Discontinued DI meds that had already been given.) - Comments Comments/Follow Ups: Watch BP, BG, mag, labs and for med changes.
[2021-08-29] MEDS: FAMOTIDINE 20 MG/50 ML BAG 200 MG IVPB (16:04)
--- NOTE | 2021-08-29 16:40 | DI.VRAD_ITS ---
PROCEDURE INFORMATION: Exam: US Duplex Lower Extremity Veins, Bilateral Exam date and time: 08/29/2021 12:01 AM Age: 60 years old Clinical indication: Pain; Leg, lower; Bilateral; Patient HX: Negative TECHNIQUE: Imaging protocol: Real-time duplex ultrasound of the extremities with 2-D velez scale, color Doppler flow and spectral waveform analysis with image documentation. Complete exam focused on the bilateral lower extremity veins. COMPARISON: No relevant prior studies available. FINDINGS: Right deep veins: Unremarkable. The common femoral, femoral, proximal profunda femoral and popliteal veins are patent without thrombus. Normal Doppler waveforms. Normal compressibility and/or augmentation response. Right superficial veins: Saphenofemoral junction is patent without thrombus. Left deep veins: Unremarkable. The common femoral, femoral, proximal profunda femoral and popliteal veins are patent without thrombus. Normal Doppler waveforms. Normal compressibility and/or augmentation response. Left superficial veins: Saphenofemoral junction is patent without thrombus. Soft tissues: Unremarkable. IMPRESSION: No evidence of deep vein thrombosis. Dictated and Authenticated by: Kavon Wright MD. Ordering:GUSTAVO Blair MD
[2021-08-29] MEDS: Normal Saline Flush 10 ML SYR (19:28)
[2021-08-29] MEDS: Melatonin 3 MG TAB PO (19:52)
[2021-08-29] MEDS: Normal Saline 500 ML 30 ML IV (20:06)
[2021-08-30] VITALS (43 sets, daily range): BP systolic 111–154; BP diastolic 60–124; PULSE 69–100; RESP 13–32; TEMP 36.2–36.7; O2SAT 84–98
[2021-08-30 07:25] LABS: Abs Immature Grans 0.09 10^3/uL (0.0-0.06); Absolute Basophil Count 0.01 10^3/uL (0.0-0.2); Absolute Lymphocyte Count 0.95 10^3/uL (1.2-3.4); Absolute Monocyte Count 0.68 10^3/uL (0.1-0.8); Absolute Neutrophil Count 9.08 10^3/uL (1.2-6.7); Basophils % 0.1; HCT 40.9 % (40.0-50.0); HGB 13.7 g/dL (13.5-17.5); Immature Grans % 0.8; Lymphocytes % 8.8; MCH 28.8 pg (27.0-33.0); MCHC 33.5 % (32.0-36.0); MCV 85.9 fL (80-95); MPV 10.2 fL (8.0-11.0); Monocytes % 6.3; Nucleated RBC 0 %; Platelet Count 209 10^3/uL (130-400); RBC 4.76 10^6/uL (4.36-5.78); RDW 14.6 % (11.8-14.1); RDW-SD 46.2 fL; WBC 10.81 10^3/uL (4.4-10.8)
[2021-08-30 07:40] LABS: ALT 67 U/L (16-63); AST 51 U/L (15-37); Albumin 2.6 g/dL (3.4-5.0); Alkaline Phosphatase 66 U/L (46-116); Anion Gap 5.7 mmol/L (3-11); BUN 24 mg/dL (7-18); Bilirubin, Direct 0.3 mg/dL (0.0-0.2); Bilirubin, Total 0.6 mg/dL (0.2-1.0); C-Reactive Protein 6.08 mg/dL (0.0-0.3); CO2 29.3 mmol/L (21.0-32.0); CREATININE 0.9 mg/dL (0.70-1.30); Calcium 8.2 mg/dL (8.5-10.1); Chloride 103 mmol/L (98-107); Glucose 123 mg/dL (74-106); Magnesium 2.7 mg/dL (1.8-2.4); Potassium 3.9 mmol/L (3.5-5.1); Sodium 138 mmol/L (136-145); Total Protein 6.4 g/dL (6.4-8.2)
[2021-08-30] MEDS: Normal Saline Flush 10 ML SYR (08:05)
[2021-08-30] MEDS: Cholecalciferol (Vitamin D3) 1,000 UNIT TAB 2000 UNITS PO (08:06)
[2021-08-30] MEDS: Ipratropium/Albuterol 4 GM 120 PUFF INH IH ×4 (08:07→19:54)
--- NOTE | 2021-08-30 08:11 | PGE_ITS ---
Date of Service Date of service: 08/30/21 Time of Service: 11:07 Assessment and Plan Assessment and plan (1) COVID-19: Status: Acute Assessment and plan: Complicated by acute PEs. Oxygen requirement is not better. Some of this has to do with the patient not proning overnight, but he is being compliant with proning so far today. Keep in ICU. Continue remdesivir, dexamethasone, baricitinib, anticoagulation. Continue CPAP - encourage IS/acapella/proning. Continue to trend inflammatory markers. Supplement vitamin C/D. Would continue clear liquid diet only for now until the patient is able to tolerate high flow more consistently and we are more sure that he won't be intubated today. He did desaturate on high flow [place] this morning while on maximum settings. (2) Acute pulmonary embolism: Status: Acute Assessment and plan: Continue lovenox 150 mg SC Q12hrs. No evidence of RV strain on echo. No evidence of DVT on venous doppler. (3) Acute respiratory failure with hypoxia: Status: Acute Assessment and plan: Multifactorial - due to COVID-19 as well as acute PE. Wean O2 as tolerated. As above (4) Hypertension: Status: Chronic Assessment and plan: Resume outpatient antihypertensives. (5) Vitamin D deficiency: Status: Acute Assessment and plan: Replete (6) Discharge planning issues: Status: Acute Assessment and plan: Full code Keep in ICU. Total Critical Care Time 45 minutes. Subjective Subjective Interval history since last seen: Mr Jackson says he is feeling discouraged. He does endorse feeling very short of breath this am, but feels better now that he is proning. He says he is very uncomfortable in that position because the CPAP mask is cutting into his face. I have informed nursing of this. Denies headache, chest pain, n/v/diarrhea. Currently proning on CPAP with FiO2 of 60% and PEEP of 10. O2 sat is 95%. There is definitely a leak on the BiPAP. Emotionally labile, per nursing. Was frustrated last night and broke his CPAP mask. Apologetic afterwards. Refused to prone on his abdomen last night, slept on his side/sitting up, alternating from CPAP to high flow (was requiring 100% FiO2). Exam Narrative Exam Narrative: General: Pleasant obese male who looks sick, A&Ox3, no dyspnea/tachypnea while on CPAP (FiO2 60%) HEENT: EOMI, MMM Cardiovascular: RRR, no m/r/g Lungs: rales at R base, sounds wet Gastrointestinal: soft, nontender, nondistended Extremities: no edema to BLE's - symmetric, 2+ pedal pulses, no c/c. Objective Last Vital Signs Temp 36.7 C 08/30/21 03:17 Pulse 77 08/30/21 06:01 Resp 16 08/30/21 06:01 BP 145/85 H 08/30/21 06:01 Pulse Ox 87 L 08/30/21 06:01 Laboratory Results - last 24 hr 08/29/21 08/29/21 08/29/21 07:20 07:20 07:20 WBC RBC Hgb Hct MCV MCH MCHC RDW Plt Count MPV Immature Gran % Neutrophils % Lymphocytes % Monocytes % Eosinophils % Basophils % Nucleated RBC % Absolute Neutrophils Absolute Lymphocytes Absolute Monocytes Absolute Eosinophils Absolute Basophils D-Dimer 986 H Sodium 137 Potassium 3.7 Chloride 101 Carbon Dioxide 26.1 Anion Gap 9.9 BUN 18 Creatinine 1.0 Estimated GFR/1.73 m2 >= 60.00 Glucose 146 H Hemoglobin A1c Calcium 8.2 L Magnesium 2.5 H Ferritin > 2000 H Total Bilirubin 0.6 Conjugated Bilirubin 0.2 AST 70 H ALT 74 H Alkaline Phosphatase 73 Troponin I < 0.05 C-Reactive Protein 12.11 H Total Protein 6.8 Albumin 2.8 L 25-OH Vitamin D Total 11.3 L 08/29/21 08/30/21 08/30/21 07:20 06:20 06:20 WBC 10.81 H D RBC 4.76 Hgb 13.7 Hct 40.9 MCV 85.9 MCH 28.8 MCHC 33.5 RDW 14.6 H Plt Count 209 MPV 10.2 Immature Gran % 0.8 Neutrophils % 84.0 Lymphocytes % 8.8 Monocytes % 6.3 Eosinophils % 0.0 Basophils % 0.1 Nucleated RBC % 0 Absolute Neutrophils 9.08 H Absolute Lymphocytes 0.95 L Absolute Monocytes 0.68 Absolute Eosinophils 0.00 Absolute Basophils 0.01 D-Dimer Sodium 138 Potassium 3.9 Chloride 103 Carbon Dioxide 29.3 Anion Gap 5.7 BUN 24 H Creatinine 0.9 Estimated GFR/1.73 m2 >= 60.00 Glucose 123 H Hemoglobin A1c 5.8 H Calcium 8.2 L Magnesium 2.7 H Ferritin Total Bilirubin 0.6 Conjugated Bilirubin 0.3 H AST 51 H ALT 67 H Alkaline Phosphatase 66 Troponin I C-Reactive Protein 6.08 H Total Protein 6.4 Albumin 2.6 L 25-OH Vitamin D Total PAWSS Have you Been Recently Intoxicated or Drunk Within the Last 30 days?: No Have you Ever Experienced Previous Episodes of Alcohol Withdrawal?: No Have you ever Experienced Withdrawal Seizures?: No Have you ever Experienced Delirium Tremens(DT)s?: No Have you ever undergone Alcohol Rehabilitation Treatment (i.e, inpt ot outpati ent treatment programs)?: No Have you ever Experienced Blackouts?: No Have you ever Combined Alcohol with other Downers within the last 90 days?: No Have you ever Combined Alcohol with any other Substance of Abuse during the last 90 days?: No Evidence of Increased Autonomic Activity (i.e. HR>120, tremor, sweating, agitation, nausea)?: No Result: 0
[2021-08-30 08:16] LABS: D-Dimer 806 ng/mlFEU (<500)
[2021-08-30] MEDS: Ascorbic Acid 500 MG TAB 1000 MG PO ×2 (08:18→19:54)
[2021-08-30 08:33] LABS: Ferritin > 2000 ng/mL (26-388)
[2021-08-30] MEDS: LORazepam 2 MG/ML VIAL 0.5 MG IVP (11:21)
--- NOTE | 2021-08-30 12:46 | PDOC.CMPRO ---
- If Service Date Differs Date of service: 08/30/21 Time of Service: 12:46 Care Management Progress Note S/O: Keon continues to be monitored and treated for Covid-19, and remains on precautions in the ICU at this time. Per provider, Keon has not made any notable improvement, attributed to his refusal to do proning overnight, agreeable today. CM continues to follow. A: 60 year old male admitted to [facility] 08/28/21 for COVID-19 Pneumonia with Hypoxia, Acute PE P: Keon will return home when ready per MD. He continues to be treated for COVID in the ICU, and remains on precautions. CM continues to follow.
[2021-08-30] MEDS: Dexamethasone 4 MG/ML VIAL 6 MG IVP (13:55)
--- NOTE | 2021-08-30 15:02 | W.INDIABCONS ---
Date of service: 08/30/21 Time of Service: 15:03 Diabetes Inpatient Consult DESCRIPTION/ASSESSMENT: Assessment: 60yo male with COVID-related PNA and acute PE. BMI of 47.5 c/w class III obesity. Vitamin D given for deficiency (11.3ng/mL on 08/29). A1C of 5.8 c/w prediabetes and pt does meet classification for metabolic syndrome. Currently tolerating clear liquid HH diet. Diagnosis: stage III obesity AEB current BMI >40. Metabolic syndrome AEB elevated TGL?s and LDL, elevated blood pressure, impaired glucose. Inadequate vitamin D intake AEB low lab value. Intervention: continue vitamin D supplementation and monitoring levels for improvement. Advance diet to regular order as tolerated with high protein choices emphasized. Recommend outpatient referral to nutrition education for elevated A1C and addressing metabolic syndrome through diet modification. Monitoring and Evaluation: will monitory for advance in diet to help meet his elevated needs while admitted. Will monitor vitamin D level and significant changes to his weight and nutrition-related labs. Time Spent in Nutritional Counseling and Treatment: 0
[2021-08-30] MEDS: FAMOTIDINE 20 MG/50 ML BAG 200 MG IVPB (15:36)
[2021-08-30] MEDS: Melatonin 3 MG TAB PO (19:54)
[2021-08-31] VITALS (59 sets, daily range): BP systolic 115–138; BP diastolic 53–90; PULSE 49–93; RESP 12–38; TEMP 31–37.2; O2SAT 82–98
[2021-08-31 06:56] LABS: Abs Immature Grans 0.06 10^3/uL (0.0-0.06); Absolute Lymphocyte Count 0.87 10^3/uL (1.2-3.4); Absolute Monocyte Count 0.48 10^3/uL (0.1-0.8); Absolute Neutrophil Count 5.19 10^3/uL (1.2-6.7); HCT 39.3 % (40.0-50.0); HGB 12.8 g/dL (13.5-17.5); Immature Grans % 0.9; Lymphocytes % 13.2; MCHC 32.6 % (32.0-36.0); MPV 10.3 fL (8.0-11.0); Monocytes % 7.3; Neutrophils % 78.6; Nucleated RBC 0 %; Platelet Count 216 10^3/uL (130-400); RBC 4.57 10^6/uL (4.36-5.78); RDW 14.6 % (11.8-14.1)
[2021-08-31 07:16] LABS: ALT 98 U/L (16-63); AST 62 U/L (15-37); Albumin 2.5 g/dL (3.4-5.0); Alkaline Phosphatase 74 U/L (46-116); Anion Gap 8.3 mmol/L (3-11); BUN 23 mg/dL (7-18); Bilirubin, Direct 0.2 mg/dL (0.0-0.2); Bilirubin, Total 0.6 mg/dL (0.2-1.0); CO2 29.7 mmol/L (21.0-32.0); Calcium 8.2 mg/dL (8.5-10.1); Chloride 102 mmol/L (98-107); Glucose 105 mg/dL (74-106); Magnesium 2.6 mg/dL (1.8-2.4); Potassium 3.8 mmol/L (3.5-5.1); Sodium 140 mmol/L (136-145); Total Protein 6.1 g/dL (6.4-8.2)
[2021-08-31 07:45] LABS: Procalcitonin < 0.1 ng/mL
[2021-08-31 07:47] LABS: D-Dimer 867 ng/mlFEU (<500)
[2021-08-31 07:52] LABS: Ferritin > 2000 ng/mL (26-388)
[2021-08-31] MEDS: Ipratropium/Albuterol 4 GM 120 PUFF INH IH ×4 (08:05→19:57)
[2021-08-31] MEDS: Ascorbic Acid 500 MG TAB 1000 MG PO ×2 (08:56→19:54)
[2021-08-31] MEDS: Cholecalciferol (Vitamin D3) 1,000 UNIT TAB 2000 UNITS PO (08:56)
[2021-08-31] MEDS: Normal Saline Flush 10 ML SYR ×2 (08:56→15:17)
--- NOTE | 2021-08-31 11:31 | NUR.NOTE ---
The patient's only IV is clotted off. The patient has requested no further peripherals be attempted despite education that I would not be able to give him emergent IV meds if he so required. He states he understands the risks and would like to wait for a midline or more invasive line. I talked with Dr. Elizalde and notified him of need for IV access. He is ordering for a midline. Notified Y[facility]unk[facility] package [facility] supervisor of need to call anesthesia/Jennifer Soto and Jennifer agreed to come in for around 1PM today for midline placement. Nursing Note:
[2021-08-31] MEDS: Dexamethasone 4 MG/ML VIAL 6 MG IVP (15:13)
[2021-08-31] MEDS: Docusate Sodium 100 MG CAP PO ×2 (15:13→19:54)
[2021-08-31] MEDS: FAMOTIDINE 20 MG/50 ML BAG 200 MG IVPB (16:05)
[2021-08-31] MEDS: Normal Saline Flush 10 ML SYR IVP (19:54)
[2021-08-31] MEDS: Melatonin 3 MG TAB PO (19:54)
[2021-08-31] MEDS: Albuterol HFA 8 GM 60 PUFF INH IH (19:56)
[2021-09-01] VITALS (39 sets, daily range): BP systolic 107–145; BP diastolic 54–80; PULSE 0–120; RESP 9–28; TEMP 31–37.1; O2SAT 87–99
--- NOTE | 2021-09-01 07:07 | W.PM.PROGNOT ---
Date of Service Date of service: 08/31/21 Time of Service: 11:07 Assessment and Plan Assessment and plan (1) COVID-19: Status: Acute Assessment and plan: Complicated by acute PEs. Maintains adequate O2 saturations in supine position with HOB at appx 45 degrees. Stable at FIO2 of 65% at rest. Requires higher FIO2 with hiflow NC Continue remdesivir, dexamethasone, baricitinib, anticoagulation. Continue CPAP - encourage IS/acapella/proning. Continue to trend inflammatory markers; d-dimer level remains flat. CrP trending downward Supplement vitamin C/D. Would continue clear liquid diet only for now until the patient is able to tolerate high flow more consistently and we are more sure that he won't be intubated today. (2) Acute pulmonary embolism: Status: Acute Assessment and plan: Continue lovenox 150 mg SC Q12hrs. No evidence of RV strain on echo. No evidence of DVT on venous doppler. (3) Acute respiratory failure with hypoxia: Status: Acute Assessment and plan: Multifactorial - due to COVID-19 as well as acute PE. Wean O2 as tolerated. As above (4) Hypertension: Status: Chronic Assessment and plan: Normotensive on no current antihypertensive meds. (5) Vitamin D deficiency: Status: Acute Assessment and plan: Replete (6) Discharge planning issues: Status: Acute Assessment and plan: Full code Keep in ICU. Subjective Subjective Patient reports: no new complaints, no bowel movement ([place] like he was going to have a BM: has been embarrased to use the commode.), shortness of breath (With minimal activity) and afebrile; denies diarrhea Interval history since last seen: Difficulty proning. Appetite OK Exam Narrative Exam Narrative: Lying in bed with head off bed partially raised. Appears fatigued Resp Effort & Inspection: normal respiratory effort (CPAP in place) Cardio Rate: regular rate Rhythm: regular rhythm Neuro General: no focal motor deficits Speech: speech normal Objective Last Vital Signs Temp 37.1 C 09/01/21 04:10 Pulse 120 H 09/01/21 06:01 Resp 24 09/01/21 05:00 BP 114/71 09/01/21 06:01 Pulse Ox 89 L 09/01/21 06:00 Laboratory Results - last 24 hr 08/31/21 08/31/21 08/31/21 06:10 06:10 06:10 D-Dimer 867 H Sodium 140 Potassium 3.8 Chloride 102 Carbon Dioxide 29.7 Anion Gap 8.3 BUN 23 H Creatinine 1.0 Estimated GFR/1.73 m2 >= 60.00 Glucose 105 Calcium 8.2 L Magnesium 2.6 H Ferritin > 2000 H Total Bilirubin 0.6 Conjugated Bilirubin 0.2 AST 62 H ALT 98 H Alkaline Phosphatase 74 C-Reactive Protein 3.30 H Total Protein 6.1 L Albumin 2.5 L Procalcitonin < 0.1 PAWSS Have you Been Recently Intoxicated or Drunk Within the Last 30 days?: No Have you Ever Experienced Previous Episodes of Alcohol Withdrawal?: No Have you ever Experienced Withdrawal Seizures?: No Have you ever Experienced Delirium Tremens(DT)s?: No Have you ever undergone Alcohol Rehabilitation Treatment (i.e, inpt ot outpatient treatment programs)?: No Have you ever Experienced Blackouts?: No Have you ever Combined Alcohol with other Downers within the last 90 days?: No Have you ever Combined Alcohol with any other Substance of Abuse during the last 90 days?: No Evidence of Increased Autonomic Activity (i.e. HR>120, tremor, sweating, agitation, nausea)?: No Result: 0
[2021-09-01] MEDS: Cholecalciferol (Vitamin D3) 1,000 UNIT TAB 2000 UNITS PO (09:20)
[2021-09-01] MEDS: Ascorbic Acid 500 MG TAB 1000 MG PO ×2 (09:20→20:54)
[2021-09-01] MEDS: Normal Saline Flush 10 ML SYR IVP ×2 (09:21→20:54)
[2021-09-01] MEDS: Polyethylene Glycol 3350 17 GM PACKET PO (09:21)
[2021-09-01] MEDS: Docusate Sodium 100 MG CAP PO (09:21)
[2021-09-01 10:12] LABS: Abs Immature Grans 0.15 10^3/uL (0.0-0.06); Absolute Basophil Count 0.02 10^3/uL (0.0-0.2); Basophils % 0.2; HGB 14.4 g/dL (13.5-17.5); Immature Grans % 1.4; Lymphocytes % 12.5; MCH 28.5 pg (27.0-33.0); MCHC 32.7 % (32.0-36.0); MCV 87.1 fL (80-95); MPV 9.8 fL (8.0-11.0); Monocytes % 4.8; Neutrophils % 81.1; Nucleated RBC 0 %; Platelet Count 253 10^3/uL (130-400); RBC 5.05 10^6/uL (4.36-5.78); RDW 14.6 % (11.8-14.1); RDW-SD 46.7 fL; WBC 10.36 10^3/uL (4.4-10.8)
[2021-09-01 10:24] LABS: Anion Gap 6.9 mmol/L (3-11); BUN 25 mg/dL (7-18); C-Reactive Protein 2.41 mg/dL (0.0-0.3); CO2 31.1 mmol/L (21.0-32.0); CREATININE 1.1 mg/dL (0.70-1.30); Calcium 8.7 mg/dL (8.5-10.1); Chloride 105 mmol/L (98-107); Glucose 111 mg/dL (74-106); Potassium 4.2 mmol/L (3.5-5.1); Sodium 143 mmol/L (136-145)
[2021-09-01 10:44] LABS: D-Dimer 1364 ng/mlFEU (<500)
[2021-09-01] MEDS: Ipratropium/Albuterol 4 GM 120 PUFF INH IH ×3 (13:00→20:55)
[2021-09-01] MEDS: Dexamethasone 4 MG/ML VIAL 6 MG IVP (14:58)
[2021-09-01] MEDS: FAMOTIDINE 20 MG/50 ML BAG 200 MG IVPB (15:53)
--- NOTE | 2021-09-01 16:16 | PGE_ITS ---
Date of Service Date of service: 09/01/21 Time of Service: 16:16 Assessment and Plan Assessment and plan (1) COVID-19: Status: Acute Assessment and plan: Complicated by acute PEs. Maintains adequate O2 saturations in supine position with HOB at appx 45 degrees. Continue remdesivir, dexamethasone, baricitinib, anticoagulation. Continue CPAP - with intermittent Hiflow NC; encourage IS/acapella/proning. Continue to trend inflammatory markers; d-dimer level remains increased marginally. CRP trending downward Supplement vitamin C/D. Improvement in dysguesia. Previously everything tasted salty. (2) Acute pulmonary embolism: Status: Acute Assessment and plan: Continue lovenox 150 mg SC Q12hrs. No evidence of RV strain on echo. No evidence of DVT on venous doppler. (3) Acute respiratory failure with hypoxia: Status: Acute Assessment and plan: Multifactorial - due to COVID-19 as well as acute PE. Wean O2 as tolerated. As above (4) Hypertension: Status: Chronic Assessment and plan: Normotensive on no current antihypertensive meds. (5) Vitamin D deficiency: Status: Acute Assessment and plan: Replete (6) Discharge planning issues: Status: Acute Assessment and plan: Full code Keep in ICU. Subjective Subjective Patient reports: no new complaints, feels better and afebrile; denies nausea and vomiting Exam Narrative Exam Narrative: Sitting in chair with Hiflow NC in place. Const General: cooperative and no acute distress Nutritional Appearance: obese Orientation: alert and oriented x3 Resp Effort & Inspection: normal respiratory effort (CPAP in place) Auscultation: crackles bilaterally at the base Cardio Rate: regular rate Rhythm: regular rhythm GI Inspection: obesity Palpation: soft and nontender Neuro General: no focal motor deficits Speech: speech normal Extrem General: no pedal edema and no calf tenderness Objective Last Vital Signs Temp 37.1 C 09/01/21 04:10 Pulse 90 09/01/21 10:09 Resp 20 09/01/21 16:09 BP 127/70 09/01/21 10:09 Pulse Ox 94 09/01/21 16:09 Laboratory Results - last 24 hr 09/01/21 09/01/21 09/01/21 10:00 10:00 10:00 WBC 10.36 D RBC 5.05 Hgb 14.4 Hct 44.0 MCV 87.1 MCH 28.5 MCHC 32.7 RDW 14.6 H Plt Count 253 MPV 9.8 Immature Gran % 1.4 Neutrophils % 81.1 Lymphocytes % 12.5 Monocytes % 4.8 Eosinophils % 0.0 Basophils % 0.2 Nucleated RBC % 0 Absolute Neutrophils 8.40 H Absolute Lymphocytes 1.30 Absolute Monocytes 0.50 Absolute Eosinophils 0.00 Absolute Basophils 0.02 D-Dimer 1364 H Sodium 143 Potassium 4.2 Chloride 105 Carbon Dioxide 31.1 Anion Gap 6.9 BUN 25 H Creatinine 1.1 Estimated GFR/1.73 m2 >= 60.00 Glucose 111 H Calcium 8.7 C-Reactive Protein 2.41 H PAWSS Have you Been Recently Intoxicated or Drunk Within the Last 30 days?: No Have you Ever Experienced Previous Episodes of Alcohol Withdrawal?: No Have you ever Experienced Withdrawal Seizures?: No Have you ever Experienced Delirium Tremens(DT)s?: No Have you ever undergone Alcohol Rehabilitation Treatment (i.e, inpt ot ou tpatient treatment programs)?: No Have you ever Experienced Blackouts?: No Have you ever Combined Alcohol with other Downers within the last 90 days?: No Have you ever Combined Alcohol with any other Substance of Abuse during the last 90 days?: No Evidence of Increased Autonomic Activity (i.e. HR>120, tremor, sweating, agitation, nausea)?: No Result: 0
[2021-09-01] MEDS: Melatonin 3 MG TAB PO (20:54)
[2021-09-02] VITALS (45 sets, daily range): BP systolic 106–171; BP diastolic 58–105; PULSE 53–115; RESP 15–30; TEMP 30–37.8; O2SAT 78–98
--- NOTE | 2021-09-02 07:30 | NUR.NOTE ---
Nursing Note: At 21:15H-This RN went into the pt's room and found him on supine position at HOB 25 degree on Hifllow (31C/60L/70%) sating at 95%. Explained the principles and benefits of Prone position and importance of using Cpap. Pt angrily stated, I do not want to be on my tummy,I'm okay staying in side position. And I don't ever want to be on that machine. At 03:40H- when pt desated to 79%,this RN asked him to use the CPAP, but pt refused.
[2021-09-02] MEDS: Cholecalciferol (Vitamin D3) 1,000 UNIT TAB 2000 UNITS PO (08:18)
[2021-09-02] MEDS: Ascorbic Acid 500 MG TAB 1000 MG PO ×2 (08:18→19:02)
[2021-09-02] MEDS: Docusate Sodium 100 MG CAP PO (08:18)
[2021-09-02] MEDS: Normal Saline Flush 10 ML SYR IVP ×3 (08:20→21:58)
[2021-09-02] MEDS: Ipratropium/Albuterol 4 GM 120 PUFF INH IH ×4 (08:20→19:03)
--- NOTE | 2021-09-02 09:02 | CMPROGNOTE_ITS ---
- If Service Date Differs Date of service: 09/02/21 Time of Service: 09:02 Care Management Progress Note S/O: CM attempted to meet with Keon over the phone since he remains on covid precautions however he did not answer his phone. Keon met with pulmonology today and agrees to try wearing the CPAP again as much as possible (with breaks) during the day and all night. Keon also met with nutrition today and his weight is stable and appetite is good. CM continues to follow. A: 60 year old male admitted to [facility] on 08/28/2021 for COVID-19, Acute hypoxic respiratory failure. P: Anticipate Keon will return home when ready per MD via private vehicle with family with New [facility] SN/PT. He continues to be treated for COVID in the ICU, and remains on precautions. CM continues to follow.
[2021-09-02 11:25] LABS: D-Dimer 1327 ng/mlFEU (<500)
[2021-09-02 11:43] LABS: ALT 106 U/L (16-63); AST 54 U/L (15-37); Albumin 2.5 g/dL (3.4-5.0); Alkaline Phosphatase 88 U/L (46-116); Anion Gap 9.2 mmol/L (3-11); BUN 21 mg/dL (7-18); Bilirubin, Total 0.6 mg/dL (0.2-1.0); C-Reactive Protein 6.14 mg/dL (0.0-0.3); CO2 27.8 mmol/L (21.0-32.0); Calcium 8.4 mg/dL (8.5-10.1); Chloride 104 mmol/L (98-107); Glucose 96 mg/dL (74-106); Potassium 4.3 mmol/L (3.5-5.1); Sodium 141 mmol/L (136-145); Total Protein 6.2 g/dL (6.4-8.2)
--- NOTE | 2021-09-02 12:08 | NUR.NOTE ---
The patient was expressing frustration to the RT and RN this AM. I went and spoke with the patient and asked him how things were going. He talked about feeling frustrated on inconsistent messages between the staff members on what COVID intervention he needs to do (proning, side, CPAP, hi-flow). I spoke with him and explained that we have discussed a common goal of air recruitment and 02 >92% with occasional dips. We then have the 4 tools to achieve that (Position, IS/Accapella, Hi-flow, CPAP). I explained to him that the mask pushes fluid out and he will need to wear it intermittently as we see his 02 need increase or a need to remove fluid. He agreed and states he now understood. He expressed that he wants to be compliant but gets frustrated if he doesn't understand or doesn't have a plan. The patient is progressing well in my comparative assessment from Sat. I was able to put him on 55% fio2 while lying on his L side with 02 sat of 97%. He also had all machines off for 1-2 min while blowing his nose and maintained at 91% or greater. This plan has been relayed to RT Izaiah López and Caitlin Hoffmann RN, Martha Izquierdo Director, and posted on the staff communication board. Patient agreed to lying on L side 1 more hour until 1130 and then get OOB for lunch. Nursing Note:
--- NOTE | 2021-09-02 12:36 | W.PULMCC ---
General Date of Service Date of service: 09/02/21 Time of Service: 08:00 Reason for Admission to ICU: Covid pneumonia Assessment and Plan Assessment and plan (1) Pneumonia due to COVID-19 virus: Status: Acute (2) Pulmonary embolism: Status: Chronic Qualifiers: Pulmonary embolism type: multiple subsegmental (without acute cor pulmonale) Qualified Code(s): I26.94 - Multiple subsegmental pulmonary emboli without acute cor pulmonale (3) Obesity, morbid, BMI 40.0-49.9: Status: Acute (4) Vitamin D deficiency: Status: Acute (5) Acute respiratory failure with hypoxia: Status: Acute (6) Hypertension: Status: Chronic Assessment and plan: This is a 60-year-old male admitted to the ICU for severe Covid pneumonia requiring CPAP and high flow. Unfortunately his D-dimer and is inflamed mental markers have increased since a couple days ago despite our therapy. He is receiving appropriate therapy for both his PEs and his Covid. His pulmonary lesions are quite small and subsegmental, I highly doubt they are contributing to his degree of hypoxia. His parenchymal infiltrates on the other hand due to his Covid pneumonia are quite severe. He has had issues with wearing the CPAP and states he is unable to prone. We discussed the reasons why these interventions are important for him. He tells me he is willing to try wearing the CPAP again. Qualifiers: Hypertension type: unspecified Qualified Code(s): I10 - Essential (primary) hypertension Recommendations Pulmonary: Hypoxic respiratory failure - recommend CPAP as much as possible with breaks during the day to facilitate ambulation, sitting in chair and eating - CPAP all night - HFNC breaks - recommend VibraPEP and I.S. - sleeping on sides - negative fluid balance - high risk intubation if needed Cardiac: Hypertension - can consider restarted home regimen - echo OK, EF 60%, likely no pHTN Renal: No acute concerns - aim for negative fluid balance daily I&O: Intake & Output 08/30/21 08/31/21 09/01/21 09/02/21 23:59 23:59 23:59 23:59 Intake Total 770 / 770 700 / 700 1410 / 1410 100 / 100 Output Total 2450 / 2450 1550 / 1550 1600 / 1600 1000 / 1000 Balance -1680 / -1680 -850 / -850 -190 / -190 -900 / -900 Weight 168.1 kg Daily Fluid Goal:: -500cc to -1L negative GI Nutrition: Ok for diet Date of Last Bowel Movement: 09/01/21 Infectious Disease: COVID PNA - agree with remdesivir, barcitinib and Decadron - procal negative and clinically no concern for bacterial PNA - if worsening O2 would empirically treat with ceftriaxone and azithromycin Hematologic: Subsegmental RLL PE - continue Lovenox A/C - TTE no evidence of pulmonary hypetension or RV strain - small PE, unlikely significantly contributing to hypoxia - DVT studies negative Neurologic: No acute concerns - delirium prevention strategies Endocrine: monitor daily glucose given steroids Vitamin D Deficiency - receiving vitamin D Lines: PIV Prophylaxis: Lovenox Famotidine Code Status: Resuscitation Status Full Code Subjective Critical and life-threatening events over the past 24 hours: This is a 60-year-old man who is unvaccinated for Covid and who also has obesity and hypertension who presents to the emergency department found to have COVID-19 pneumonia. Per report his symptoms started August 20, 2021 and he was diagnosed with Covid on August 22, 2021. He then presented to the emergency department on August 28, 2021 where he was having worsening cough and shortness of breath and was also found to be saturating 84% on room air. He had a chest CT performed which showed significant parenchymal glass and more densely consolidated infiltrates as well as small subsegmental right lower lobe pulmonary embolisms. He was placed on dexamethasone, remdesivir, baricitinib and anticoagulation. He has been requiring high flow nasal cannula as well as CPAP. He has made little improvement since being here. Today he tells me that he is exhausted. He states that he is cold and is tired from having to work so hard to breathe. Exam Const General: acute distress mild Nutritional Appearance: obese [facility] Head: normocephalic Ears: external ears normal and no periauricular adenopathy General nose exam: nasal mucous membranes and turbinates normal Face and sinus: sinuses nontender Mouth: oropharynx normal and moist mucous membranes Teeth and gingiva: dentition normal Eyes General: appearance normal, both eyes and all related structures Pupils: PERRL Neck Neck: normal visual inspection and no lymphadenopathy Chest Chest: normal inspection of the chest Resp Effort & Inspection: normal respiratory effort Auscultation: diminished lung sounds, rales, no rhonchi and no wheezes Cardio Rate: regular rate Rhythm: regular rhythm Heart Sounds: S1 normal, S2 normal and no murmurs Pulses: radial pulses present bilaterally GI Inspection: normal to inspection Palpation: soft Skin General skin exam: no rashes or lesions noted Neuro General: patient alert, patient awake and patient oriented x3 Extrem General: no clubbing, cyanosis or edema Psych Mental Status: mental status grossly normal Affect: normal affect Attitude: cooperative Most Recent VS/Results Last Vital Signs Temp 37.5 C 09/02/21 09:00 Pulse 85 09/02/21 10:17 Resp 20 09/02/21 10:17 BP 165/63 H 09/02/21 08:01 Pulse Ox 98 09/02/21 10:17 Laboratory Results - last 24 hr 09/02/21 09/02/21 09/02/21 05:35 06:35 11:00 D-Dimer 1327 H Sodium Cancelled 141 Potassium Cancelled 4.3 Chloride Cancelled 104 Carbon Dioxide Cancelled 27.8 Anion Gap Cancelled 9.2 BUN Cancelled 21 H Creatinine Cancelled 1.0 Estimated GFR/1.73 m2 Cancelled >= 60.00 Glucose Cancelled 96 Calcium Cancelled 8.4 L Total Bilirubin Cancelled 0.6 AST Cancelled 54 H ALT Cancelled 106 H Alkaline Phosphatase Cancelled 88 C-Reactive Protein Cancelled 6.14 H Total Protein Cancelled 6.2 L Albumin Cancelled 2.5 L Review of Systems All systems reviewed & are unremarkable except as noted in HPI and below Time spent with patient Time spent in Critical Care: 50 Time spent in Critical care included: Coordination of care, Chart review, Documenting critically ill care, Time at immediate bedside and Discussing critically ill care with other medical staff
[2021-09-02] MEDS: Dexamethasone 4 MG/ML VIAL 6 MG IVP (14:53)
--- NOTE | 2021-09-02 15:25 | W.NUTRFU ---
Date of service: 09/02/21 Time of Service: 15:26 Nutritional Follow up NOTE: Pt?s weight is stable with good po intake from meal trays (50-100% x 4 days) when he does eat. No new concerns nutritionally. Will continue to monitor labs and would suggest repeat vitamin D to assess how current supplementation of 2,000IU D3 is affecting his deficiency. Ge Clarke NDTR ? [employer] Time Spent in Nutritional Counseling and Treatment: 0
[2021-09-02] MEDS: FAMOTIDINE 20 MG/50 ML BAG 200 MG IVPB (16:03)
[2021-09-02] MEDS: Melatonin 3 MG TAB PO (21:58)
[2021-09-03] VITALS (38 sets, daily range): BP systolic 103–151; BP diastolic 65–93; PULSE 64–110; RESP 18–27; TEMP 31–37.2; O2SAT 85–97
[2021-09-03 07:24] LABS: C-Reactive Protein 11.86 mg/dL (0.0-0.3)
[2021-09-03 08:07] LABS: D-Dimer 1092 ng/mlFEU (<500)
[2021-09-03] MEDS: Ipratropium/Albuterol 4 GM 120 PUFF INH IH ×2 (08:08→16:15)
[2021-09-03] MEDS: Ascorbic Acid 500 MG TAB 1000 MG PO (08:23)
[2021-09-03] MEDS: Docusate Sodium 100 MG CAP PO (08:23)
[2021-09-03] MEDS: Cholecalciferol (Vitamin D3) 1,000 UNIT TAB 2000 UNITS PO (08:23)
[2021-09-03] MEDS: Normal Saline Flush 10 ML SYR IVP ×3 (08:24→18:30)
--- NOTE | 2021-09-03 10:30 | PDOC.CMPRO ---
Care Management Progress Note S/O: CM attempted to meet with Keon over the phone since he remains on Covid precautions however he did not answer his phone. CM continues to follow. A: 60 year old male admitted to [facility] on 08/28/2021 for COVID-19, Acute hypoxic respiratory failure. P: Keon will return home when ready per MD via private vehicle with family with new [facility] SN/PT. He continues to be treated for COVID in the ICU, and remains on precautions. CM continues to follow.
--- NOTE | 2021-09-03 12:52 | PUCC_ITS ---
General Date of Service Date of service: 09/03/21 Time of Service: 07:50 Reason for Admission to ICU: COVID-19 Assessment and Plan Assessment and plan (1) Pneumonia due to COVID-19 virus: Status: Acute (2) Pulmonary embolism: Status: Chronic Qualifiers: Pulmonary embolism type: multiple subsegmental (without acute cor pulmonale) Qualified Code(s): I26.94 - Multiple subsegmental pulmonary emboli without acute cor pulmonale (3) Obesity, morbid, BMI 40.0-49.9: Status: Acute (4) Vitamin D deficiency: Status: Acute (5) Acute respiratory failure with hypoxia: Status: Acute (6) Hypertension: Status: Chronic Assessment and plan: This is a 60-year-old male admitted to the ICU for severe Covid pneumonia requiring CPAP and high flow. Unfortunately his D-dimer and is inflamed mental markers have increased since a couple days ago despite our therapy. He is receiving appropriate therapy for both his PEs and his Covid. His pulmonary lesions are quite small and subsegmental, I highly doubt they are contributing to his degree of hypoxia. His parenchymal infiltrates on the other hand due to his Covid pneumonia are quite severe. He has had some issues wearing the CPAP specifically with a large leak present due to his facial hair. He is willing to shave this in order to facilitate wearing the CPAP machine is much as he is able to tolerate. He visually appeared slightly improved from yesterday and seemed to be in less respiratory distress overall. Qualifiers: Hypertension type: unspecified Qualified Code(s): I10 - Essential (primary) hypertension Recommendations Pulmonary: Hypoxic respiratory failure - recommend CPAP as much as he is able to tolerate - HFNC breaks - out of bed to chair - recommend VibraPEP and I.S. - sleeping on sides - can sleep on back when wearing CPAP - high risk intubation if needed Cardiac: Hypertension - can consider restarting home regimen - echo OK, EF 60%, likely no pHTN Renal: No acute concerns I&O: Intake & Output 08/31/21 09/01/21 09/02/21 09/03/21 23:59 23:59 23:59 23:59 Intake Total 700 / 700 1410 / 1410 440 / 440 240 / 240 Output Total 1550 / 1550 1600 / 1600 1300 / 1650 700 / 700 Balance -850 / -850 -190 / -190 -860 / -1210 -460 / -460 Weight 168.1 kg 160.436 kg Daily Fluid Goal:: Negative fluid balance GI Nutrition: OK for diet Date of Last Bowel Movement: 09/03/21 Infectious Disease: COVID PNA - agree with remdesivir, barcitinib and Decadron - procal negative and clinically no concern for bacterial PNA - if worsening O2 would empirically treat with ceftriaxone and azithromycin Hematologic: Subsegmental RLL PE - continue Lovenox A/C - TTE no evidence of pulmonary hypertension or RV strain - small PE, unlikely significantly contributing to hypoxia - DVT studies negative Neurologic: No acute concerns - delirium prevention Endocrine: monitor daily glucose given steroids Vitamin D Deficiency - receiving vitamin D Lines: PICC Prophylaxis: Lovenox Famotidine Code Status: Resuscitation Status Full Code Subjective Critical and life-threatening events over the past 24 hours: He is doing okay today. He states that he is tired and did not sleep well at all. He was able to tolerate CPAP for 2 hours last night. He does have an okay appetite and is having no issues with bladder or bowel habits. He still feels short of breath and has some intermittent pain. There has been some physical issues with wear ing the CPAP, he has a significant amount of facial hair that is generating very large leak with the CPAP. We talked about this today and he is willing to shave to facilitate wearing the CPAP. Exam Const Nutritional Appearance: obese [facility] Head: normocephalic Ears: external ears normal and no periauricular adenopathy General nose exam: nasal mucous membranes and turbinates normal Face and sinus: sinuses nontender Mouth: oropharynx normal and moist mucous membranes Teeth and gingiva: dentition normal Eyes General: appearance normal, both eyes and all related structures Pupils: PERRL Neck Neck: normal visual inspection and no lymphadenopathy Chest Chest: normal inspection of the chest Resp Effort & Inspection: normal respiratory effort Auscultation: diminished lung sounds, rales, no rhonchi and no wheezes Cardio Rate: regular rate Rhythm: regular rhythm Heart Sounds: S1 normal, S2 normal and no murmurs Pulses: radial pulses present bilaterally GI Inspection: normal to inspection Palpation: soft Skin General skin exam: no rashes or lesions noted Neuro General: patient alert, patient awake and patient oriented x3 Extrem General: no clubbing, cyanosis or edema Psych Mental Status: mental status grossly normal Affect: normal affect Attitude: cooperative Most Recent VS/Results Last Vital Signs Temp 36.4 C L 09/03/21 08:35 Pulse 83 09/03/21 11:17 Resp 24 09/03/21 11:17 BP 151/93 H 09/03/21 10:46 Pulse Ox 93 09/03/21 11:18 Laboratory Results - last 24 hr 09/03/21 09/03/21 06:50 06:50 D-Dimer 1092 H C-Reactive Protein 11.86 H Review of Systems All systems reviewed & are unremarkable except as noted in HPI and below
[2021-09-03] MEDS: Dexamethasone 4 MG/ML VIAL 6 MG IVP (15:20)
[2021-09-03] MEDS: FAMOTIDINE 20 MG/50 ML BAG 200 MG IVPB (15:24)
--- NOTE | 2021-09-03 19:27 | W.PM.PROGNOT ---
Date of Service Date of service: 09/02/21 Time of Service: 19:29 Assessment and Plan Assessment and plan (1) COVID-19: Status: Acute Assessment and plan: Complicated by acute PEs. Continue remdesivir, dexamethasone, baricitinib, anticoagulation. Improving resp status. Stable on Hiflow O2 at 45% FIO2 with 10mmHg pressure. (2) Acute pulmonary embolism: Status: Acute Assessment and plan: Continue lovenox 150 mg SC Q12hrs. No evidence of RV strain on echo. No evidence of DVT on venous doppler. (3) Acute respiratory failure with hypoxia: Status: Acute Assessment and plan: Multifactorial - due to COVID-19 as well as acute PE. Wean O2 as tolerated. As above (4) Hypertension: Status: Chronic Assessment and plan: Normotensive on no current antihypertensive meds. Qualifiers: Hypertension type: unspecified Qualified Code(s): I10 - Essential (primary) hypertension (5) Vitamin D deficiency: Status: Acute Assessment and plan: Replete (6) Discharge planning issues: Status: Acute Assessment and plan: Full code Keep in ICU. Subjective Subjective Patient reports: no new complaints, tolerating a regular diet, shortness of breath and afebrile; denies nausea and vomiting Exam Narrative Exam Narrative: Sitting in chair. Appears comfortable. Hiflow NC in place. Resp Effort & Inspection: normal respiratory effort Auscultation: clear to auscultation bilaterally Cardio Jugular venous pressure: JVD Rate: regular rate Rhythm: regular rhythm Psych Appearance: grossly normal Mental Status: mental status grossly normal Affect: normal affect Objective Last Vital Signs Temp 37.2 C 09/03/21 15:50 Pulse 90 09/03/21 18:35 Resp 24 09/03/21 18:35 BP 115/71 09/03/21 18:30 Pulse Ox 95 09/03/21 18:35 Laboratory Results - last 24 hr 09/03/21 09/03/21 06:50 06:50 D-Dimer 1092 H C-Reactive Protein 11.86 H PAWSS Have you Been Recently Intoxicated or Drunk Within the Last 30 days?: No Have you Ever Experienced Previous Episodes of Alcohol Withdrawal?: No Have you ever Experienced Withdrawal Seizures?: No Have you ever Experienced Delirium Tremens(DT)s?: No Have you ever undergone Alcohol Rehabilitation Treatment (i.e, inpt ot outpatient treatment programs)?: No Have you ever Experienced Blackouts?: No Have you ever Combined Alcohol with other Downers within the last 90 days?: No Have you ever Combined Alcohol with any other Substance of Abuse during the last 90 days?: No Evidence of Increased Autonomic Activity (i.e. HR>120, tremor, sweating, agitation, nausea)?: No Result: 0
--- NOTE | 2021-09-03 19:34 | W.PM.PROGNOT ---
Date of Service Date of service: 09/03/21 Time of Service: 19:35 Assessment and Plan Assessment and plan (1) COVID-19: Status: Acute Assessment and plan: Complicated by acute PEs. Continue remdesivir, dexamethasone, baricitinib, anticoagulation. Improving resp status. Stable on Hiflow O2 at 45% FIO2 with 10mmHg pressure. (2) Acute pulmonary embolism: Status: Acute Assessment and plan: Continue lovenox 150 mg SC Q12hrs. No evidence of RV strain on echo. No evidence of DVT on venous doppler. (3) Acute respiratory failure with hypoxia: Status: Acute Assessment and plan: Multifactorial - due to COVID-19 as well as acute PE. Wean O2 as tolerated. As above (4) Hypertension: Status: Chronic Assessment and plan: Normotensive on no current antihypertensive meds. Qualifiers: Hypertension type: unspecified Qualified Code(s): I10 - Essential (primary) hypertension (5) Vitamin D deficiency: Status: Acute Assessment and plan: Replete (6) Discharge planning issues: Status: Acute Assessment and plan: Full code Keep in ICU. Subjective Subjective Patient reports: no new complaints, feels better, shortness of breath and afebrile; denies nausea and vomiting Exam Narrative Exam Narrative: Sitting in chair. Appears comfortable. Hiflow NC in place. Const General: cooperative and no acute distress Nutritional Appearance: obese Orientation: alert and oriented x3 Resp Effort & Inspection: normal respiratory effort Auscultation: clear to auscultation bilaterally and diminished lung sounds Cardio Jugular venous pressure: JVD Rate: regular rate Rhythm: regular rhythm GI Inspection: obesity Palpation: soft and nontender Neuro General: no focal motor deficits Speech: speech normal Extrem General: no pedal edema and no calf tenderness Psych Appearance: grossly normal Mental Status: mental status grossly normal Affect: normal affect Objective Last Vital Signs Temp 37.2 C 09/03/21 15:50 Pulse 90 09/03/21 18:35 Resp 24 09/03/21 18:35 BP 115/71 09/03/21 18:30 Pulse Ox 95 09/03/21 18:35 Laboratory Results - last 24 hr 09/03/21 09/03/21 06:50 06:50 D-Dimer 1092 H C-Reactive Protein 11.86 H PAWSS Have you Been Recently Intoxicated or Drunk Within the Last 30 days?: No Have you Ever Experienced Previous Episodes of Alcohol Withdrawal?: No Have you ever Experienced Withdrawal Seizures?: No Have you ever Experienced Delirium Tremens(DT)s?: No Have you ever undergone Alcohol Rehabilitation Treatment (i.e, inpt ot outpatient treatment programs)?: No Have you ever Experienced Blackouts?: No Have you ever Combined Alcohol with other Downers within the last 90 days?: No Have you ever Combined Alcohol with any other Substance of Abuse during the last 90 days?: No Evidence of Increased Autonomic Activity (i.e. HR>120, tremor, sweating, agitation, nausea)?: No Result: 0
[2021-09-03] MEDS: LORazepam 0.5 MG TAB (23:33)
[2021-09-04] VITALS (43 sets, daily range): BP systolic 95–145; BP diastolic 46–96; PULSE 49–99; RESP 18–25; TEMP 31–36.5; O2SAT 84–98
[2021-09-04] MEDS: Melatonin 3 MG TAB PO
[2021-09-04 08:43] LABS: D-Dimer 1016 ng/mlFEU (<500)
--- NOTE | 2021-09-04 09:07 | W.PULMCC ---
General Date of Service Date of service: 09/04/21 Time of Service: 08:00 Assessment and Plan Assessment and plan (1) Pneumonia due to COVID-19 virus: Status: Acute (2) Pulmonary embolism: Status: Chronic Qualifiers: Pulmonary embolism type: multiple subsegmental (without acute cor pulmonale) Qualified Code(s): I26.94 - Multiple subsegmental pulmonary emboli without acute cor pulmonale (3) Obesity, morbid, BMI 40.0-49.9: Status: Acute (4) Vitamin D deficiency: Status: Acute (5) Acute respiratory failure with hypoxia: Status: Acute (6) Hypertension: Status: Chronic Assessment and plan: This is a 60-year-old male admitted to the ICU for severe Covid pneumonia requiring CPAP and high flow. Hi D-dimer is decreasing now, although his CRP increased yesterday, his value from today is pending. He is receiving appropriate therapy for both his PEs and his Covid. His pulmonary lesions are quite small and subsegmental, I highly doubt they are contributing to his degree of hypoxia. His parenchymal infiltrates on the other hand due to his Covid pneumonia are quite severe. He did well with CPAP overnight and his oxygenation improved dramatically when on this therapy. He will wear the CPAP as much as he is able to tolerate with switching back to HFNC. He shaved his facial air that improved the leak that was initially on the CPAP. Qualifiers: Hypertension type: unspecified Qualified Code(s): I10 - Essential (primary) hypertension Recommendations Pulmonary: Hypoxic respiratory failure - recommend CPAP as much as he is able to tolerate - HFNC breaks - out of bed to chair - recommend VibraPEP and I.S. - sleeping on sides - can sleep on back when wearing CPAP - high risk intubation if needed Cardiac: Hypertension - echo OK, EF 60%, likely no pHTN Renal: No acute concerns I&O: Intake & Output 09/01/21 09/02/21 09/03/21 09/04/21 23:59 23:59 23:59 23:59 Intake Total 1410 / 1410 490 / 490 630 / 630 Output Total 1600 / 1600 1300 / 1650 1875 / 1875 Balance -190 / -190 -810 / -1160 -1245 / -1245 Weight 160.436 kg Daily Fluid Goal:: Negative GI Nutrition: OK for diet Date of Last Bowel Movement: 09/03/21 Infectious Disease: COVID PNA - agree with remdesivir, barcitinib and Decadron - procal negative and clinically no concern for bacterial PNA - if worsening O2 would empirically treat with ceftriaxone and azithromycin Hematologic: Subsegmental RLL PE - continue Lovenox A/C - TTE no evidence of pulmonary hypertension or RV strain - small PE, unlikely significantly contributing to hypoxia - DVT studies negative Neurologic: No acute concerns - delirium prevention Endocrine: monitor daily glucose given steroids Vitamin D Deficiency - receiving vitamin D Lines: PICC Prophylaxis: Lovenox Famotidine Code Status: Resuscitation Status Full Code Subjective Critical and life-threatening events over the past 24 hours: He is doing well today. He says he feels about the same as yesterday. He was able to wear CPAP for 5 hours last night after shaving and getting a low dose benzodiazepine. He still have an appetite and is having regular bowel movements. He is somewhat frustrating with the time it is taking him to get better, but understands this is a process and COVID infection does take a very long time to recover from. Exam Const General: acute distress mild Nutritional Appearance: obese HENMT Head: normocephalic Ears: external ears normal and no periauricular adenopathy General nose exam: nasal mucous membranes and turbinates normal Face and sinus: sinuses nontender Mouth: oropharynx normal and moist mucous membranes Teeth and gingiva: dentition normal Eyes General: appearance normal, both eyes and all related structures Pupils: PERRL Neck Neck: normal visual inspection and no lymphadenopathy Chest Chest: normal inspection of the chest Resp Effort & Inspection: normal respiratory effort Auscultation: diminished lung sounds, rales bilaterally at the base, no rhonchi and no wheezes Cardio Rate: regular rate Rhythm: regular rhythm Heart Sounds: S1 normal, S2 normal and no murmurs Pulses: radial pulses present bilaterally GI Inspection: normal to inspection Palpation: soft Skin General skin exam: no rashes or lesions noted Neuro General: patient alert, patient awake and patient oriented x3 Extrem General: no clubbing, cyanosis or edema Psych Mental Status: mental status grossly normal Affect: normal affect Attitude: cooperative Most Recent VS/Results Last Vital Signs Temp 36.5 C 09/04/21 03:22 Pulse 49 L 09/04/21 06:01 Resp 24 09/04/21 06:01 BP 107/55 L 09/04/21 06:01 Pulse Ox 98 09/04/21 06:01 Laboratory Results - last 24 hr 09/04/21 07:54 D-Dimer 1016 H Review of Systems All systems reviewed & are unremarkable except as noted in HPI and below
[2021-09-04] MEDS: Docusate Sodium 100 MG CAP PO (10:08)
[2021-09-04] MEDS: Ascorbic Acid 500 MG TAB 1000 MG PO ×2 (10:08→18:43)
[2021-09-04] MEDS: Cholecalciferol (Vitamin D3) 1,000 UNIT TAB 2000 UNITS PO (10:08)
[2021-09-04] MEDS: Normal Saline Flush 10 ML SYR IVP ×2 (10:09)
--- NOTE | 2021-09-04 10:09 | PDOC.CMPRO ---
- If Service Date Differs Date of service: 09/04/21 Time of Service: 15:49 Care Management Progress Note S/O: Keon remains in the ICU on Covid-19 precautions. Providers are recommending he wear his CPAP as much as he can tolerate. Continues to require close monitoring and treatment at this time. CM continues to follow. A: 60 year old male admitted to [facility] on 08/28/2021 for COVID-19, Acute hypoxic respiratory failure. P: Keon will return home when ready per MD via private vehicle with family with new [facility] SN/PT. He continues to be treated for COVID in the ICU, and remains on precautions. CM continues to follow.
[2021-09-04] MEDS: Ipratropium/Albuterol 4 GM 120 PUFF INH IH ×3 (10:13→19:00)
--- NOTE | 2021-09-04 13:50 | PGE_ITS ---
Date of Service Date of service: 09/04/21 Time of Service: 13:50 Assessment and Plan Assessment and plan (1) COVID-19: Status: Acute Assessment and plan: Complicated by acute PEs. Continue remdesivir, dexamethasone, baricitinib, anticoagulation. Improving resp status. Stable on Hiflow O2 at 45% FIO2 with 10mmHg pressure. Can likely decrease supplemental O2 further. Cont Ativan at night with CPAP (2) Acute pulmonary embolism: Status: Acute Assessment and plan: Continue lovenox 150 mg SC Q12hrs. No evidence of RV strain on echo. No evidence of DVT on venous doppler. (3) Acute respiratory failure with hypoxia: Status: Acute Assessment and plan: Multifactorial - due to COVID-19 as well as acute PE. Wean O2 as tolerated. As above (4) Hypertension: Status: Chronic Assessment and plan: Normotensive on no current antihypertensive meds. Qualifiers: Hypertension type: unspecified Qualified Code(s): I10 - Essential ( primary) hypertension (5) Vitamin D deficiency: Status: Acute Assessment and plan: Replete (6) Discharge planning issues: Status: Acute Assessment and plan: Full code Keep in ICU. Subjective Subjective Patient reports: feels better, tolerating a regular diet, shortness of breath and afebrile; denies diarrhea, nausea and vomiting Interval history since last seen: Used CPAP last PM; slept for 5 hours straight after taking Ativan. Exam Narrative Exam Narrative: Sitting in chair. Appears comfortable. Hiflow NC in place. Const General: cooperative and no acute distress Nutritional Appearance: obese Orientation: alert and oriented x3 Resp Effort & Inspection: normal respiratory effort Auscultation: clear to auscultation bilaterally and diminished lung sounds Cardio Jugular venous pressure: JVD Rate: regular rate Rhythm: regular rhythm GI Inspection: obesity Palpation: soft and nontender Neuro General: no focal motor deficits Speech: speech normal Extrem General: no pedal edema and no calf tenderness Psych Appearance: grossly normal Mental Status: mental status grossly normal Affect: normal affect Objective Last Vital Signs Temp 36.2 C L 09/04/21 11:32 Pulse 97 H 09/04/21 10:20 Resp 22 09/04/21 10:20 BP 119/64 09/04/21 10:20 Pulse Ox 90 L 09/04/21 11:01 Laboratory Results - last 24 hr 10/20/21 07:54 D-Dimer 1016 H PAWSS Have you Been Recently Intoxicated or Drunk Within the Last 30 days?: No Have you Ever Experienced Previous Episodes of Alcohol Withdrawal?: No Have you ever Experienced Withdrawal Seizures?: No Have you ever Experienced Delirium Tremens(DT)s?: No Have you ever undergone Alcohol Rehabilitation Treatment (i.e, inpt ot outpatient treatment programs)?: No Have you ever Experienced Blackouts?: No Have you ever Combined Alcohol with other Downers within the last 90 days?: No Have you ever Combined Alcohol with any other Substance of Abuse during the last 90 days?: No Evidence of Increased Autonomic Activity (i.e. HR>120, tremor, sweating, agitation, nausea)?: No Result: 0
[2021-09-04] MEDS: Dexamethasone 4 MG/ML VIAL 6 MG IVP (14:48)
[2021-09-04 15:03] LABS: C-Reactive Protein 11.26 mg/dL (0.0-0.3)
[2021-09-04] MEDS: FAMOTIDINE 20 MG/50 ML BAG 200 MG IVPB (17:12)
[2021-09-04] MEDS: LORazepam 0.5 MG TAB PO (18:43)
[2021-09-05] VITALS (23 sets, daily range): BP systolic 107–153; BP diastolic 65–87; PULSE 50–92; RESP 18–22; TEMP 27–36.7; O2SAT 90–97
[2021-09-05 07:10] LABS: HCT 41.5 % (40.0-50.0); HGB 13.4 g/dL (13.5-17.5); MCH 27.9 pg (27.0-33.0); MCHC 32.3 % (32.0-36.0); MCV 86.3 fL (80-95); MPV 10.2 fL (8.0-11.0); Platelet Count 353 10^3/uL (130-400); RBC 4.81 10^6/uL (4.36-5.78); RDW 14.5 % (11.8-14.1); WBC 8.23 10^3/uL (4.4-10.8)
[2021-09-05 07:28] LABS: Anion Gap 9.2 mmol/L (3-11); BUN 21 mg/dL (7-18); CO2 25.8 mmol/L (21.0-32.0); CREATININE 0.9 mg/dL (0.70-1.30); Calcium 8.6 mg/dL (8.5-10.1); Chloride 106 mmol/L (98-107); Glucose 99 mg/dL (74-106); Potassium 4.4 mmol/L (3.5-5.1); Sodium 141 mmol/L (136-145)
--- NOTE | 2021-09-05 08:49 | PDOC.CMPRO ---
Care Management Progress Note S/O: Keon remains in the ICU on Covid-19 precautions. Providers are recommending he wear his CPAP as much as he can tolerate. Continues to require close monitoring and treatment at this time. CM continues to follow. A: 60 year old male admitted to [facility] on 08/28/2021 for COVID-19, Acute hypoxic respiratory failure. P: Keon will return home when ready per MD via private vehicle with family with new [facility] SN/PT. He continues to be treated for COVID in the ICU, and remains on precautions. CM continues to follow.
[2021-09-05] MEDS: Ipratropium/Albuterol 4 GM 120 PUFF INH IH ×4 (09:00→20:50)
[2021-09-05] MEDS: Cholecalciferol (Vitamin D3) 1,000 UNIT TAB 2000 UNITS PO (09:36)
[2021-09-05] MEDS: Polyethylene Glycol 3350 17 GM PACKET PO (09:36)
[2021-09-05] MEDS: Ascorbic Acid 500 MG TAB 1000 MG PO ×2 (09:36→20:26)
[2021-09-05] MEDS: Docusate Sodium 100 MG CAP PO (09:38)
[2021-09-05] MEDS: Normal Saline Flush 10 ML SYR IVP ×2 (09:39→20:27)
[2021-09-05] MEDS: Dexamethasone 4 MG/ML VIAL 6 MG IVP (14:34)
[2021-09-05] MEDS: LORazepam 0.5 MG TAB PO ×2 (14:37→23:17)
--- NOTE | 2021-09-05 15:09 | W.PM.PROGNOT ---
Date of Service Date of service: 09/05/21 Time of Service: 15:09 Assessment and Plan Assessment and plan (1) COVID-19: Status: Acute Assessment and plan: Complicated by acute PEs. Continue remdesivir, dexamethasone, baricitinib, anticoagulation. Improving resp status. Stable on Hiflow O2 at 45% FIO2 with 10mmHg pressure. Can likely decrease supplemental O2 further. Cont Ativan at night with CPAP D dimer and CRP slightly decreased from previous day. (2) Acute pulmonary embolism: Status: Acute Assessment and plan: Continue lovenox 150 mg SC Q12hrs. No evidence of RV strain on echo. No evidence of DVT on venous doppler. (3) Acute respiratory failure with hypoxia: Status: Acute Assessment and plan: Multifactorial - due to COVID-19 as well as acute PE. Wean O2 as tolerated. As above (4) Hypertension: Status: Chronic Assessment and plan: Normotensive on no current antihypertensive meds. Qualifiers: Hypertension type: unspecified Qualified Code(s): I10 - Essential (primary) hypertension (5) Vitamin D deficiency: Status: Acute Assessment and plan: Replete (6) Discharge planning issues: Status: Acute Assessment and plan: Full code Keep in ICU. Subjective Subjective Patient reports: no new complaints, feels better, bowel movement (2 days ago. He is hesitant to have BM in portable commode; embarrassed.) and afebrile; denies diarrhea, nausea and vomiting Exam Narrative Exam Narrative: Sitting in chair. Appears comfortable. Hiflow NC in place. Const General: cooperative and no acute distress Nutritional Appearance: obese Orientation: alert and oriented x3 Resp Effort & Inspection: normal respiratory effort Auscultation: clear to auscultation bilaterally and diminished lung sounds (Improved from previous exam.) Cardio Jugular venous pressure: JVD Rate: regular rate Rhythm: regular rhythm GI Inspection: obesity Palpation: soft and nontender Neuro General: no focal motor deficits Speech: speech normal Extrem General: no pedal edema and no calf tenderness Psych Appearance: grossly normal Mental Status: mental status grossly normal Affect: normal affect Objective Last Vital Signs Temp 36.1 C L 09/05/21 12:20 Pulse 80 09/05/21 08:58 Resp 22 09/05/21 04:26 BP 143/87 H 09/05/21 08:58 Pulse Ox 94 09/05/21 10:16 Laboratory Results - last 24 hr 10/20/21 10/21/21 10/21/21 07:54 06:35 06:35 WBC 8.23 RBC 4.81 Hgb 13.4 L Hct 41.5 MCV 86.3 MCH 27.9 MCHC 32.3 RDW 14.5 H Plt Count 353 D MPV 10.2 Sodium 141 Potassium 4.4 Chloride 106 Carbon Dioxide 25.8 Anion Gap 9.2 BUN 21 H Creatinine 0.9 Estimated GFR/1.73 m2 >= 60.00 Glucose 99 Calcium 8.6 C-Reactive Protein 11.26 H PAWSS Have you Been Recently Intoxicated or Drunk Within the Last 30 days?: No Have you Ever Experienced Previous Episodes of Alcohol Withdrawal?: No Have you ever Experienced Withdrawal Seizures?: No Have you ever Experienced Delirium Tremens(DT)s?: No Have you ever undergone Alcohol Rehabilitation Treatment (i.e, inpt ot outpatient treatment programs)?: No Have you ever Experienced Blackouts?: No Have you ever Combined Alcohol with other Downers within the last 90 days?: No Have you ever Combined Alcohol with any other Substance of Abuse during the last 90 days?: No Evidence of Increased Autonomic Activity (i.e. HR>120, tremor, sweating, agitation, nausea)?: No Result: 0
[2021-09-05] MEDS: FAMOTIDINE 20 MG/50 ML BAG 200 MG IVPB (15:49)
[2021-09-05] MEDS: Melatonin 3 MG TAB PO (23:17)
[2021-09-06] VITALS (33 sets, daily range): BP systolic 103–131; BP diastolic 57–76; PULSE 60–115; RESP 15–20; TEMP 29–37.2; O2SAT 88–96
[2021-09-06] MEDS: Polyethylene Glycol 3350 17 GM PACKET PO (09:11)
[2021-09-06] MEDS: Ascorbic Acid 500 MG TAB 1000 MG PO ×2 (09:11→19:07)
[2021-09-06] MEDS: Docusate Sodium 100 MG CAP PO ×2 (09:11→19:07)
[2021-09-06] MEDS: Cholecalciferol (Vitamin D3) 1,000 UNIT TAB 2000 UNITS PO (09:11)
[2021-09-06] MEDS: Ipratropium/Albuterol 4 GM 120 PUFF INH IH ×2 (09:50→15:50)
--- NOTE | 2021-09-06 11:56 | W.NUTRFU ---
Date of service: 09/06/21 Time of Service: 11:56 Nutritional Follow up NOTE: PO remains good. Weight is down 4.7% in the past week which is likely related to patient eating less than his baseline. BMI is 45.4 kg/m2 c/w class 3 obesity. No nutritional issues currently. Will continue to follow. Time Spent in Nutritional Counseling and Treatment: 0
--- NOTE | 2021-09-06 12:26 | W.PULMCC ---
General Date of Service Date of service: 09/06/21 Time of Service: 07:30 Reason for Admission to ICU: Covid pneumonia Assessment and Plan Assessment and plan (1) Pneumonia due to COVID-19 virus: Status: Acute (2) Pulmonary embolism: Status: Chronic Qualifiers: Pulmonary embolism type: multiple subsegmental (without acute cor pulmonale) Qualified Code(s): I26.94 - Multiple subsegmental pulmonary emboli without acute cor pulmonale (3) Obesity, morbid, BMI 40.0-49.9: Status: Acute (4) Vitamin D deficiency: Status: Acute (5) Acute respiratory failure with hypoxia: Status: Acute (6) Hypertension: Status: Chronic Assessment and plan: This is a 60-year-old male admitted to the ICU for severe Covid pneumonia requiring CPAP and high flow. Hi D-dimer and CRP are decreasing now. He is receiving appropriate therapy for both his PEs and his Covid. His pulmonary emboli are quite small and subsegmental, I highly doubt they are contributing to his degree of hypoxia. His parenchymal infiltrates on the other hand due to his Covid pneumonia are quite severe. He did well with CPAP overnight and his oxygenation improved dramatically when on this therapy. He will wear the CPAP as much as he is able to tolerate with switching back to HFNC. He shaved his facial air that improved the leak that was initially on the CPAP. If he can tolerate HFNC 50/50 or lower then he will likely be safe for the floor. He should continue to wear the CPAP nightly on the floor. Qualifiers: Hypertension type: unspecified Qualified Code(s): I10 - Essential (primary) hypertension Recommendations Pulmonary: Hypoxic respiratory failure - CPAP overnight - HFNC breaks - out of bed to chair - recommend VibraPEP and I.S. - sleeping on sides - can sleep on back when wearing CPAP Cardiac: Hypertension - echo OK, EF 60%, likely no pHTN Renal: No acute concerns I&O: Intake & Output 09/03/21 09/04/21 09/05/21 09/06/21 23:59 23:59 23:59 23:59 Intake Total 630 / 630 350 / 350 1223 / 1223 Output Total 1875 / 1875 850 / 850 1300 / 1300 900 / 900 Balance -1245 / -1245 -500 / -500 -77 / -77 -900 / -900 Weight 160.3 kg Daily Fluid Goal:: slightly negative GI Nutrition: OK for diet Date of Last Bowel Movement: 09/03/21 Infectious Disease: COVID PNA - agree with remdesivir, barcitinib and Decadron - procal negative and clinically no concern for bacterial PNA - if worsening O2 would empirically treat with ceftriaxone and azithromycin - can back off checking inflammatory labs as patient improving - can check prn Hematologic: Subsegmental RLL PE - continue Lovenox A/C - can consider switching to DOAC - will need 3-6 months on A/C - TTE no evidence of pulmonary hypertension or RV strain - small PE, unlikely significantly contributing to hypoxia - DVT studies negative Neurologic: No acute concerns - delirium prevention Endocrine: monitor daily glucose given steroids Vitamin D Deficiency - receiving vitamin D Lines: PICC Prophylaxis: Lovenox anf famotidine Code Status: Resuscitation Status Full Code Subjective Critical and life-threatening events over the past 24 hours: He has been doing well this morning. He wore the CPAP for 4 to 5 hours last night successfully. He feels as though his breathing is starting to improve. He does still have some shortness of breath and cough but again this is improving. Exam Const General: acute distress mild Nutritional Appearance: obese HENMT Head: normocephalic Ears: external ears normal and no periauricular adenopathy General nose exam: nasal mucous membranes and turbinates normal Face and sinus: sinuses nontender Mouth: oropharynx normal and moist mucous membranes Teeth and gingiva: dentition normal Eyes General: appearance normal, both eyes and all related structures Pupils: PERRL Neck Neck: normal visual inspection and no lymphadenopathy Chest Chest: normal inspection of the chest Resp Effort & Inspection: normal respiratory effort Auscultation: diminished lung sounds, no rales, no rhonchi and no wheezes Cardio Rate: regular rate Rhythm: regular rhythm Heart Sounds: S1 normal, S2 normal and no murmurs Pulses: radial pulses present bilaterally GI Inspection: normal to inspection Palpation: soft Skin General skin exam: no rashes or lesions noted Neuro General: patient alert, patient awake and patient oriented x3 Extrem General: no clubbing, cyanosis or edema Psych Mental Status: mental status grossly normal Affect: normal affect Attitude: cooperative Most Recent VS/Results Last Vital Signs Temp 36.4 C L 09/06/21 08:00 Pulse 83 09/06/21 09:32 Resp 18 09/06/21 08:00 BP 122/63 09/06/21 09:32 Pulse Ox 96 09/06/21 10:00 Review of Systems All systems reviewed & are unremarkable except as noted in HPI and below Time spent with patient Time spent in Critical Care: 35 Time spent in Critical care included: Coordination of care, Chart review, Documenting critically ill care, Time at immediate bedside and Discussing critically ill care with other medical staff
--- NOTE | 2021-09-06 13:07 | PDOC.CMPRO ---
- If Service Date Differs Date of service: 09/06/21 Time of Service: 13:07 Care Management Progress Note S/O: Keon remains in the ICU on Covid-19 precautions. Providers report he is making clinical gains and anticipate his status will be downgraded to M/S within the next day. Keon identifies that due to being sick for a few weeks prior to hospitalization, he does not have food or clean laundry when he returns home. CM attempted to call Keon without success. CM continues to follow. A: 60 year old male admitted to [facility] on 08/28/2021 for COVID-19, Acute hypoxic respiratory failure. P: Keon will return home when ready per MD via private vehicle with family with new [facility] SN/PT. He continues to be treated for COVID in the ICU, and remains on precautions. CM continues to follow.
[2021-09-06] MEDS: Normal Saline Flush 10 ML SYR IVP (13:57)
[2021-09-06] MEDS: Dexamethasone 4 MG/ML VIAL 6 MG IVP (15:17)
[2021-09-06] MEDS: FAMOTIDINE 20 MG/50 ML BAG 200 MG IVPB (15:17)
[2021-09-06] MEDS: Normal Saline 500 ML IV (15:18)
--- NOTE | 2021-09-06 16:41 | W.PM.PROGNOT ---
Date of Service Date of service: 09/06/21 Time of Service: 16:44 Assessment and Plan Assessment and plan (1) COVID-19: Status: Acute Assessment and plan: Complicated by acute PEs. Continue remdesivir, dexamethasone, baricitinib, anticoagulation. Improving resp status. Stable on Hiflow O2 at 45% FIO2 with 10mmHg pressure. Can likely decrease supplemental O2 further. Cont Ativan at night with CPAP D dimer and CRP slightly decreased from previous day. (2) Acute pulmonary embolism: Status: Acute Assessment and plan: Continue lovenox 150 mg SC Q12hrs. No evidence of RV strain on echo. No evidence of DVT on venous doppler. (3) Acute respiratory failure with hypoxia: Status: Acute Assessment and plan: Multifactorial - due to COVID-19 as well as acute PE. Wean O2 as tolerated. As above (4) Hypertension: Status: Chronic Assessment and plan: Normotensive on no current antihypertensive meds. Qualifiers: Hypertension type: unspecified Qualified Code(s): I10 - Essential (primary) hypertension (5) Vitamin D deficiency: Status: Acute Assessment and plan: Replete (6) Discharge planning issues: Status: Acute Assessment and plan: Full code Keep in ICU but likely can soon transfer to med-surg status. Subjective Subjective Patient reports: no new complaints and feels better; denies nausea and vomiting Interval history since last seen: Still hesitant to have BM on the commode. Exam Narrative Exam Narrative: Sitting in chair. Appears comfortable. Hiflow NC in place. Const General: cooperative and no acute distress Nutritional Appearance: obese Orientation: alert and oriented x3 Resp Effort & Inspection: normal respiratory effort Cardio Rate: regular rate Rhythm: regular rhythm GI Inspection: obesity Neuro General: moves all extremities Speech: speech normal Psych Appearance: grossly normal Mental Status: mental status grossly normal Objective Last Vital Signs Temp 36.1 C L 09/06/21 16:11 Pulse 115 H 09/06/21 13:42 Resp 20 09/06/21 16:11 BP 117/76 09/06/21 13:42 Pulse Ox 94 09/06/21 14:00 PAWSS Have you Been Recently Intoxicated or Drunk Within the Last 30 days?: No Have you Ever Experienced Previous Episodes of Alcohol Withdrawal?: No Have you ever Experienced Withdrawal Seizures?: No Have you ever Experienced Delirium Tremens(DT)s?: No Have you ever undergone Alcohol Rehabilitation Treatment (i.e, inpt ot outpatient treatment programs)?: No Have you ever Experienced Blackouts?: No Have you ever Combined Alcohol with other Downers within the last 90 days?: No Have you ever Combined Alcohol with any other Substance of Abuse during the last 90 days?: No Evidence of Increased Autonomic Activity (i.e. HR>120, tremor, sweating, agitation, nausea)?: No Result: 0
[2021-09-06] MEDS: LORazepam 0.5 MG TAB PO (19:15)
[2021-09-06] MEDS: Melatonin 3 MG TAB PO (19:16)
[2021-09-07] VITALS (36 sets, daily range): BP systolic 120–161; BP diastolic 74–91; PULSE 66–83; RESP 20–24; TEMP 31–37; O2SAT 84–96
[2021-09-07 07:32] LABS: ALT 60 U/L (16-63); AST 17 U/L (15-37); Albumin 2.4 g/dL (3.4-5.0); Alkaline Phosphatase 75 U/L (46-116); Anion Gap 6.5 mmol/L (3-11); BUN 20 mg/dL (7-18); Bilirubin, Total 0.3 mg/dL (0.2-1.0); C-Reactive Protein 1.58 mg/dL (0.0-0.3); CO2 27.5 mmol/L (21.0-32.0); CREATININE 0.9 mg/dL (0.70-1.30); Calcium 8.8 mg/dL (8.5-10.1); Chloride 106 mmol/L (98-107); Glucose 95 mg/dL (74-106); Magnesium 2.3 mg/dL (1.8-2.4); Potassium 4.2 mmol/L (3.5-5.1); Sodium 140 mmol/L (136-145); Total Protein 6.3 g/dL (6.4-8.2)
[2021-09-07 07:46] LABS: D-Dimer 1356 ng/mlFEU (<500)
[2021-09-07 08:04] LABS: Ferritin 949 ng/mL (26-388)
[2021-09-07] MEDS: Normal Saline Flush 10 ML SYR IVP ×4 (08:10→19:23)
[2021-09-07] MEDS: Cholecalciferol (Vitamin D3) 1,000 UNIT TAB 2000 UNITS PO (08:10)
[2021-09-07] MEDS: Ascorbic Acid 500 MG TAB 1000 MG PO ×2 (08:10→19:23)
--- NOTE | 2021-09-07 08:29 | W.PM.PROGNOT ---
Date of Service Date of service: 09/07/21 Time of Service: 12:19 Assessment and Plan Assessment and plan (1) COVID-19: Status: Acute Assessment and plan: Complicated by acute PEs. O2 requirement is better. Keep in ICU. Continue remdesivir, dexamethasone, baricitinib, anticoagulation. Continue CPAP/humidified heated high flow NC - encourage IS/acapella/proning. Continue to trend inflammatory markers. Continue supplementation of Vitamin C and D. (2) Acute pulmonary embolism: Status: Acute Assessment and plan: Continue lovenox 150 mg SC Q12hrs. No evidence of RV strain on echo. No evidence of DVT on venous doppler. (3) Acute respiratory failure with hypoxia: Status: Acute Assessment and plan: Multifactorial - due to COVID-19 as well as acute PE. Wean O2 as tolerated. As above (4) Hypertension: Status: Chronic Assessment and plan: No change in current tx Qualifiers: Hypertension type: unspecified Qualified Code(s): I10 - Essential (primary) hypertension (5) Vitamin D deficiency: Status: Acute Assessment and plan: Replete (6) Discharge planning issues: Status: Acute Assessment and plan: Full code Keep in ICU. Total Critical Care Time 30 minutes. Subjective Subjective Interval history since last seen: Mr Jackson states he feels well. He denies dizziness, headache, chest pain, shortness of breath, abdominal pain. He is on CPAP right now, 45%, PEEP 10. He has been turning from side to side but has not been able to lay on his abdomen. This am on HHHFNC 45-50 FiO2, 50 L - 93% at rest. 88% right after sitting up. Takes time to recover. Side-laying, did not prone on abdomen. CPAP 1900 - 2300 yesterday, FiO2 45%, 93-94% O2 sat. Refused youth nutritional monitor. Exam Narrative Exam Narrative: General: Pleasant obese male on CPAP, laying on his right side, sleeping, wakes up easily, no evidence of dyspnea/tachypnea/cyanosis, finishes sentences. HEENT: EOMI, MMM Cardiovascular: RRR, no m/r/g Lungs: faint expiratory rhonchi Gastrointestinal: soft, nontender, nondistended Extremities: no edema to BLE's - symmetric, 2+ pedal pulses, no c/c. Objective Last Vital Signs Temp 37.0 C 09/07/21 03:28 Pulse 72 09/07/21 03:28 Resp 20 09/07/21 03:28 BP 137/76 09/07/21 03:28 Pulse Ox 94 09/07/21 06:00 Laboratory Results - last 24 hr 09/07/21 09/07/21 09/07/21 06:45 06:45 06:45 D-Dimer 1356 H Sodium 140 Potassium 4.2 Chloride 106 Carbon Dioxide 27.5 Anion Gap 6.5 BUN 20 H Creatinine 0.9 Estimated GFR/1.73 m2 >= 60.00 Glucose 95 Calcium 8.8 Magnesium 2.3 Ferritin 949 H Total Bilirubin 0.3 AST 17 ALT 60 Alkaline Phosphatase 75 C-Reactive Protein 1.58 H Total Protein 6.3 L Albumin 2.4 L PAWSS Have you Been Recently Intoxicated or Drunk Within the Last 30 days?: No Have you Ever Experienced Previous Episodes of Alcohol Withdrawal?: No Have you ever Experienced Withdrawal Seizures?: No Have you ever Experienced Delirium Tremens(DT)s?: No Have you ever undergone Alcohol Rehabilitation Treatment (i.e, inpt ot outpatient treatment programs)?: No Have you ever Experienced Blackouts?: No Have you ever Combined Alcohol with other Downers within the last 90 days?: No Have you ever Combined Alcohol with any other Substance of Abuse during the last 90 days?: No Evidence of Increased Autonomic Activity (i.e. HR>120, tremor, sweating, agitation, nausea)?: No Result: 0
[2021-09-07] MEDS: Ipratropium/Albuterol 4 GM 120 PUFF INH IH ×4 (08:41→19:24)
[2021-09-07] MEDS: LORazepam 0.5 MG TAB PO ×2 (11:06→19:24)
[2021-09-07] MEDS: Dexamethasone 4 MG/ML VIAL 6 MG IVP (13:13)
[2021-09-07] MEDS: FAMOTIDINE 20 MG/50 ML BAG 200 MG IVPB (15:56)
[2021-09-07] MEDS: Docusate Sodium 100 MG CAP PO (19:23)
[2021-09-07] MEDS: Melatonin 3 MG TAB PO (21:56)
[2021-09-08] VITALS (43 sets, daily range): BP systolic 104–141; BP diastolic 65–104; PULSE 57–93; RESP 16–20; TEMP 31–37; O2SAT 83–98
[2021-09-08] MEDS: Normal Saline Flush 10 ML SYR IVP ×3 (01:49→19:58)
[2021-09-08 07:03] LABS: Abs Immature Grans 0.14 10^3/uL (0.0-0.06); Absolute Basophil Count 0.03 10^3/uL (0.0-0.2); Absolute Eosinophil Count 0.01 10^3/uL (0.0-0.7); Absolute Lymphocyte Count 1.45 10^3/uL (1.2-3.4); Absolute Monocyte Count 0.55 10^3/uL (0.1-0.8); Absolute Neutrophil Count 7.63 10^3/uL (1.2-6.7); Basophils % 0.3; Eosinophils % 0.1; HCT 40.8 % (40.0-50.0); HGB 13.5 g/dL (13.5-17.5); Immature Grans % 1.4; Lymphocytes % 14.8; MCH 28.2 pg (27.0-33.0); MCHC 33.1 % (32.0-36.0); MCV 85.4 fL (80-95); MPV 10.4 fL (8.0-11.0); Monocytes % 5.6; Neutrophils % 77.8; Nucleated RBC 0 %; Platelet Count 318 10^3/uL (130-400); RBC 4.78 10^6/uL (4.36-5.78); RDW 14.1 % (11.8-14.1); RDW-SD 43.9 fL; WBC 9.81 10^3/uL (4.4-10.8)
[2021-09-08 07:24] LABS: ALT 76 U/L (16-63); AST 26 U/L (15-37); Albumin 2.4 g/dL (3.4-5.0); Alkaline Phosphatase 76 U/L (46-116); Anion Gap 5.4 mmol/L (3-11); BUN 22 mg/dL (7-18); Bilirubin, Direct 0.1 mg/dL (0.0-0.2); Bilirubin, Total 0.3 mg/dL (0.2-1.0); C-Reactive Protein 0.91 mg/dL (0.0-0.3); CO2 29.6 mmol/L (21.0-32.0); CREATININE 0.8 mg/dL (0.70-1.30); Calcium 8.8 mg/dL (8.5-10.1); Chloride 106 mmol/L (98-107); Glucose 89 mg/dL (74-106); Magnesium 2.2 mg/dL (1.8-2.4); Potassium 4.3 mmol/L (3.5-5.1); Sodium 141 mmol/L (136-145); Total Protein 6.2 g/dL (6.4-8.2)
--- NOTE | 2021-09-08 08:02 | NUR.NOTE ---
PT refused pericare. RN notified. Will try again at a later time. Nursing Note:
--- NOTE | 2021-09-08 08:14 | W.PM.PROGNOT ---
Date of Service Date of service: 09/08/21 Time of Service: 10:46 Assessment and Plan Assessment and plan (1) COVID-19: Status: Acute Assessment and plan: Complicated by acute PEs. O2 requirement is slightly better than yesterday. Keep in ICU. He really should spend the night on CPAP tonight. Continue remdesivir, dexamethasone, baricitinib, anticoagulation. Continue CPAP/humidified heated high flow NC - encourage IS/acapella/proning. Continue to trend inflammatory markers. Continue supplementation of Vitamin C and D. (2) Acute pulmonary embolism: Status: Acute Assessment and plan: Continue lovenox 150 mg SC Q12hrs. No evidence of RV strain on echo. No evidence of DVT on venous doppler. (3) Acute respiratory failure with hypoxia: Status: Acute Assessment and plan: Multifactorial - due to COVID-19 as well as acute PE. Wean O2 as tolerated. As above (4) Hypertension: Status: Chronic Assessment and plan: Not requiring BP meds at this time. Qualifiers: Hypertension type: unspecified Qualified Code(s): I10 - Essential (primary) hypertension (5) Vitamin D deficiency: Status: Acute Assessment and plan: Replete (6) Discharge planning issues: Status: Acute Assessment and plan: Full code Keep in ICU. Total Critical Care Time 30 minutes. Subjective Subjective Interval history since last seen: Mr Jackson states he feels better today. Denies dizziness, chest pain, shortness of breath, nausea, pain. Did not use CPAP last night. Used high flow and slept on the side, FiO 45%, 50 L. 92-94% on those settings. This morning, he is on CPAP, Fio2 40%. Mentally feels like he is not making progress, but we discussed that in fact he is slowly improving and that he will be moved down to [facility] probably in the next 48 hrs. Exam Narrative Exam Narrative: General: Pleasant obese male on CPAP, laying on his right side, sleeping, easily arousable, no evidence of dyspnea/tachypnea/cyanosis HEENT: EOMI, MMM Cardiovascular: RRR, no m/r/g Lungs: Diminished breath sounds B Gastrointestinal: soft, nontender, nondistended Extremities: no edema to BLE's - symmetric, 2+ pedal pulses, no c/c. Objective Last Vital Signs Temp 36.8 C 09/08/21 04:30 Pulse 80 09/08/21 07:00 Resp 16 09/08/21 07:00 BP 124/81 09/08/21 05:29 Pulse Ox 92 09/08/21 07:18 Laboratory Results - last 24 hr 09/08/21 09/08/21 06:40 06:40 WBC 9.81 RBC 4.78 Hgb 13.5 Hct 40.8 MCV 85.4 MCH 28.2 MCHC 33.1 RDW 14.1 Plt Count 318 MPV 10.4 Immature Gran % 1.4 Neutrophils % 77.8 Lymphocytes % 14.8 Monocytes % 5.6 Eosinophils % 0.1 Basophils % 0.3 Nucleated RBC % 0 Absolute Neutrophils 7.63 H Absolute Lymphocytes 1.45 Absolute Monocytes 0.55 Absolute Eosinophils 0.01 Absolute Basophils 0.03 Sodium 141 Potassium 4.3 Chloride 106 Carbon Dioxide 29.6 Anion Gap 5.4 BUN 22 H Creatinine 0.8 Estimated GFR/1.73 m2 >= 60.00 Glucose 89 Calcium 8.8 Magnesium 2.2 Total Bilirubin 0.3 Conjugated Bilirubin 0.1 AST 26 ALT 76 H Alkaline Phosphatase 76 C-Reactive Protein 0.91 H Total Protein 6.2 L Albumin 2.4 L PAWSS Have you Been Recently Intoxicated or Drunk Within the Last 30 days?: No Have you Ever Experienced Previous Episodes of Alcohol Withdrawal?: No Have you ever Experienced Withdrawal Seizures?: No Have you ever Experienced Delirium Tremens(DT)s?: No Have you ever undergone Alcohol Rehabilitation Treatment (i.e, inpt ot outpatient treatment programs)?: No Have you ever Experienced Blackouts?: No Have you ever Combined Alcohol with other Downers within the last 90 days?: No Have you ever Combined Alcohol with any other Substance of Abuse during the last 90 days?: No Evidence of Increased Autonomic Activity (i.e. HR>120, tremor, sweating, agitation, nausea)?: No Result: 0
[2021-09-08 08:21] LABS: Ferritin 1279 ng/mL (26-388)
[2021-09-08 08:29] LABS: D-Dimer 1303 ng/mlFEU (<500)
[2021-09-08] MEDS: Ascorbic Acid 500 MG TAB 1000 MG PO ×2 (09:02→19:58)
[2021-09-08] MEDS: Docusate Sodium 100 MG CAP PO ×2 (09:02→19:59)
[2021-09-08] MEDS: Cholecalciferol (Vitamin D3) 1,000 UNIT TAB 2000 UNITS PO (09:02)
[2021-09-08] MEDS: Ipratropium/Albuterol 4 GM 120 PUFF INH IH ×4 (09:03→19:59)
[2021-09-08] MEDS: Polyethylene Glycol 3350 17 GM PACKET PO (09:03)
[2021-09-08] MEDS: LORazepam 0.5 MG TAB PO ×3 (09:29→21:18)
[2021-09-08] MEDS: Dexamethasone 4 MG/ML VIAL 6 MG IVP (14:48)
[2021-09-08] MEDS: FAMOTIDINE 20 MG/50 ML BAG 200 MG IVPB (16:48)
[2021-09-08] MEDS: Melatonin 3 MG TAB PO (20:21)
[2021-09-09] VITALS (32 sets, daily range): BP systolic 101–122; BP diastolic 67–80; PULSE 56–98; RESP 23; TEMP 35.9–36.5; O2SAT 86–100
[2021-09-09] MEDS: LORazepam 0.5 MG TAB PO ×2 (04:25→21:19)
[2021-09-09 07:26] LABS: Abs Immature Grans 0.17 10^3/uL (0.0-0.06); Absolute Basophil Count 0.03 10^3/uL (0.0-0.2); Absolute Eosinophil Count 0.01 10^3/uL (0.0-0.7); Absolute Lymphocyte Count 1.46 10^3/uL (1.2-3.4); Absolute Monocyte Count 0.56 10^3/uL (0.1-0.8); Basophils % 0.3; Eosinophils % 0.1; HCT 42.7 % (40.0-50.0); HGB 13.8 g/dL (13.5-17.5); Immature Grans % 1.5; Lymphocytes % 13.2; MCH 28.2 pg (27.0-33.0); MCHC 32.3 % (32.0-36.0); MCV 87.1 fL (80-95); MPV 10.2 fL (8.0-11.0); Monocytes % 5.1; Neutrophils % 79.8; Nucleated RBC 0 %; Platelet Count 325 10^3/uL (130-400); RDW 14.1 % (11.8-14.1); RDW-SD 45.1 fL; WBC 11.07 10^3/uL (4.4-10.8)
[2021-09-09 07:29] LABS: Absolute Neutrophil Count 8.83 10^3/uL (1.2-6.7)
[2021-09-09 07:41] LABS: ALT 93 U/L (16-63); AST 26 U/L (15-37); Albumin 2.5 g/dL (3.4-5.0); Alkaline Phosphatase 74 U/L (46-116); Anion Gap 6.2 mmol/L (3-11); BUN 20 mg/dL (7-18); Bilirubin, Direct 0.1 mg/dL (0.0-0.2); Bilirubin, Total 0.3 mg/dL (0.2-1.0); C-Reactive Protein 0.49 mg/dL (0.0-0.3); CO2 28.8 mmol/L (21.0-32.0); CREATININE 0.9 mg/dL (0.70-1.30); Calcium 8.7 mg/dL (8.5-10.1); Chloride 105 mmol/L (98-107); Glucose 92 mg/dL (74-106); Magnesium 2.2 mg/dL (1.8-2.4); Potassium 4.2 mmol/L (3.5-5.1); Sodium 140 mmol/L (136-145); Total Protein 6.4 g/dL (6.4-8.2)
--- NOTE | 2021-09-09 08:24 | PGE_ITS ---
Date of Service Date of service: 09/09/21 Time of Service: 11:57 Assessment and Plan Assessment and plan (1) COVID-19: Status: Acute Assessment and plan: Complicated by acute PEs. O2 requirement is 4L by [place]. Transfer to Med surg floor with tele and continuous pulse ox. Will give lasix 20 mg PO x 1 due to slight edema BLEs. Continue dexamethasone, baricitinib, anticoagulation. Finished remdesivir. Wean O2 as tolerated - encourage IS/acapella/proning. Continue to trend inflammatory markers. Continue supplementation of Vitamin C and D. (2) Acute pulmonary embolism: Status: Acute Assessment and plan: Continue lovenox 150 mg SC Q12hrs. No evidence of RV strain on echo. No evidence of DVT on venous doppler. (3) Acute respiratory failure with hypoxia: Status: Acute Assessment and plan: Multifactorial - due to COVID-19 as well as acute PE. Wean O2 as tolerated. As above (4) Hypertension: Status: Chronic Assessment and plan: Not requiring BP meds at this time. Qualifiers: Hypertension type: unspecified Qualified Code(s): I10 - Essential (primary) hypertension (5) Vitamin D deficiency: Status: Acute Assessment and plan: Replete (6) Discharge planning issues: Status: Acute Assessment and plan: Full code Transfer out of ICU. Discussed with Dr Patten. Subjective Subjective Interval history since last seen: Mr Jackson (who liked to be called Jay, per nursing) states that he is feeling a lot better today than when he first came in, but he cannot say definitively that he feels better than yesterday. He is really looking forward to lunch, even though it's hospital food. He denies dizziness, chest pain, shortness of breath, nausea. His sense of taste is good. Wore CPAP x 5 hrs overnight (FiO2 35%. Saturating 94%). Did not prone. Turned side to side. Switched to [place] from [facility] this am, and at this time is on 4L of O2 by FL. Exam Narrative Exam Narrative: General: Pleasant obese male who looks much better, Sitting in a chair on NC - 4L. HEENT: EOMI, MMM Cardiovascular: RRR, no m/r/g Lungs: Diminished breath sounds B Gastrointestinal: soft, nontender, nondistended Extremities: trace edema BLE's - symmetric, 2+ pedal pulses, no c/c. Objective Last Vital Signs Temp 36.5 C 09/09/21 04:25 Pulse 78 09/09/21 04:30 Resp 23 09/09/21 04:30 BP 122/79 09/09/21 04:27 Pulse Ox 97 09/09/21 08:00 Laboratory Results - last 24 hr 09/08/21 09/09/21 09/09/21 06:40 07:10 07:10 WBC 11.07 H RBC 4.90 Hgb 13.8 Hct 42.7 MCV 87.1 MCH 28.2 MCHC 32.3 RDW 14.1 Plt Count 325 MPV 10.2 Immature Gran % 1.5 Neutrophils % 79.8 Lymphocytes % 13.2 Monocytes % 5.1 Eosinophils % 0.1 Basophils % 0.3 Nucleated RBC % 0 Absolute Neutrophils 8.83 H Absolute Lymphocytes 1.46 Absolute Monocytes 0.56 Absolute Eosinophils 0.01 Absolute Basophils 0.03 D-Dimer 1303 H Sodium 140 Potassium 4.2 Chloride 105 Carbon Dioxide 28.8 Anion Gap 6.2 BUN 20 H Creatinine 0.9 Estimated GFR/1.73 m2 >= 60.00 Glucose 92 Calcium 8.7 Magnesium 2.2 Total Bilirubin 0.3 Conjugated Bilirubin 0.1 AST 26 ALT 93 H Alkaline Phosphatase 74 C-Reactive Protein 0.49 H Total Protein 6.4 Albumin 2.5 L PAWSS Have you Been Recently Intoxicated or Drunk Within the Last 30 days?: No Have you Ever Experienced Previous Episodes of Alcohol Withdrawal?: No Have you ever Experienced Withdrawal Seizures?: No Have you ever Experienced Delirium Tremens(DT)s?: No Have you ever undergone Alcohol Rehabilitation Treatment (i.e, inpt ot outpatient treatment programs)?: No Have you ever Experienced Blackouts?: No Have you ever Combined Alcohol with other Downers within the last 90 days?: No Have you ever Combined Alcohol with any other Substance of Abuse during the last 90 days?: No Evidence of Increased Autonomic Activity (i.e. HR>120, tremor, sweating, agitation, nausea)?: No Result: 0
[2021-09-09 08:25] LABS: D-Dimer 1139 ng/mlFEU (<500)
[2021-09-09 08:30] LABS: Ferritin 1277 ng/mL (26-388)
[2021-09-09] MEDS: Ipratropium/Albuterol 4 GM 120 PUFF INH IH ×4 (08:48→21:21)
[2021-09-09] MEDS: Ascorbic Acid 500 MG TAB 1000 MG PO ×2 (09:42→21:19)
[2021-09-09] MEDS: Normal Saline Flush 10 ML SYR IVP ×2 (09:42→21:20)
[2021-09-09] MEDS: Docusate Sodium 100 MG CAP PO ×2 (09:42→21:19)
[2021-09-09] MEDS: Polyethylene Glycol 3350 17 GM PACKET PO (09:43)
[2021-09-09] MEDS: Cholecalciferol (Vitamin D3) 1,000 UNIT TAB 2000 UNITS PO (09:46)
--- NOTE | 2021-09-09 10:05 | CMPROGNOTE_ITS ---
- If Service Date Differs Date of service: 09/09/21 Time of Service: 10:05 Care Management Progress Note S/O: Keon's level of care transitioned to Med Surg status. He remains on Covid-19 precautions and is waiting to be transferred to the MS floor. Keon identifies that due to being sick for a few weeks prior to hospitalization, he does not have food or clean laundry when he returns home. CM attempted to call Keon again today without success. CM continues to follow. A: 60 year old male admitted to [facility] on 08/28/2021 for COVID-19, Acute hypoxic respiratory failure. P: Keon will return home when ready per MD via private vehicle with family with new [facility] SN/PT. He continues to be treated for COVID in the ICU, and remains on precautions. CM continues to follow.
[2021-09-09] MEDS: Dexamethasone 4 MG/ML VIAL 6 MG IVP (13:34)
[2021-09-09] MEDS: Furosemide 20 MG TAB PO (13:35)
[2021-09-09] MEDS: FAMOTIDINE 20 MG/50 ML BAG 200 MG IVPB (16:14)
[2021-09-09] MEDS: Melatonin 3 MG TAB PO (21:19)
[2021-09-10] VITALS (19 sets, daily range): BP systolic 98–145; BP diastolic 61–86; PULSE 74–92; RESP 18–24; TEMP 35.9–37; O2SAT 91–98
--- NOTE | 2021-09-10 | DI.US_ITS ---
Exam(s) US EXTREMITY VENOUS BI EXAM: US EXTREMITY VENOUS BI CLINICAL HISTORY: worsening BLE edema, concern for DVT (Has COVID-19. TECHNIQUE: Bilateral lower extremity venous ultrasound performed using grayscale, color-flow, and sp ectral Doppler analysis. COMPARISON: No exams were available for comparison FINDINGS: The bilateral common femoral, femoral and popliteal veins demonstrate normal compressibility, augment ation, and color Doppler. The posterior tibial veins are patent. No saphenous thrombosis. IMPRESSION: Right: Negative for DVT Left: Negative for DVT DATA REPOSITORY:
[2021-09-10 06:50] LABS: Abs Immature Grans 0.15 10^3/uL (0.0-0.06); Absolute Basophil Count 0.03 10^3/uL (0.0-0.2); Absolute Eosinophil Count 0.02 10^3/uL (0.0-0.7); Absolute Lymphocyte Count 1.74 10^3/uL (1.2-3.4); Absolute Monocyte Count 0.66 10^3/uL (0.1-0.8); Basophils % 0.3; Eosinophils % 0.2; HCT 41.7 % (40.0-50.0); HGB 13.7 g/dL (13.5-17.5); Immature Grans % 1.4; MCH 28.4 pg (27.0-33.0); MCHC 32.9 % (32.0-36.0); MCV 86.3 fL (80-95); MPV 10.5 fL (8.0-11.0); Monocytes % 6.1; Nucleated RBC 0 %; Platelet Count 320 10^3/uL (130-400); RBC 4.83 10^6/uL (4.36-5.78); RDW 14.3 % (11.8-14.1); RDW-SD 45.3 fL; WBC 10.89 10^3/uL (4.4-10.8)
[2021-09-10 07:04] LABS: Absolute Neutrophil Count 8.28 10^3/uL (1.2-6.7)
[2021-09-10 07:15] LABS: Anion Gap 7.6 mmol/L (3-11); BUN 26 mg/dL (7-18); C-Reactive Protein 0.24 mg/dL (0.0-0.3); CO2 27.4 mmol/L (21.0-32.0); CREATININE 0.9 mg/dL (0.70-1.30); Chloride 105 mmol/L (98-107); Glucose 103 mg/dL (74-106); Magnesium 2.3 mg/dL (1.8-2.4); Potassium 4.4 mmol/L (3.5-5.1); Sodium 140 mmol/L (136-145)
[2021-09-10 07:50] LABS: D-Dimer 797 ng/mlFEU (<500); Procalcitonin < 0.1 ng/mL
[2021-09-10 08:02] LABS: Ferritin 1240 ng/mL (26-388)
--- NOTE | 2021-09-10 08:23 | W.PM.PROGNOT ---
Date of Service Date of service: 09/10/21 Time of Service: 12:53 Assessment and Plan Assessment and plan (1) COVID-19: Status: Acute Assessment and plan: Complicated by acute PEs. Concern for new DVTs as worsening edema. Check dopplers of LEs. O2 requirement is 3L by NC, improved. Continue diuretics. Continue dexamethasone, baricitinib, anticoagulation. Finished remdesivir. Wean O2 as tolerated - encourage IS/acapella/proning. Continue to trend inflammatory markers. Continue supplementation of Vitamin C and D. (2) Acute pulmonary embolism: Status: Acute Assessment and plan: Continue lovenox 150 mg SC Q12hrs. No evidence of RV strain on echo. No evidence of DVT on venous doppler on 08/29, but we are repeating these today as edema BLEs is worse. (3) Acute respiratory failure with hypoxia: Status: Acute Assessment and plan: Multifactorial - due to COVID-19 as well as acute PE. Wean O2 as tolerated. As above (4) Hypertension: Status: Chronic Assessment and plan: Not requiring BP meds at this time. Qualifiers: Hypertension type: unspecified Qualified Code(s): I10 - Essential (primary) hypertension (5) Vitamin D deficiency: Status: Acute Assessment and plan: Replete (6) Discharge planning issues: Status: Acute Assessment and plan: Full code Continues to require hospitalization. Subjective Subjective Interval history since last seen: Mr Jackson states he feels fine. Denies dizziness, chest pain, shortness of breath, nausea. States his side was sore when he was laying on it when he was just taking a nap so he slept on his back. On 3L of O2 right now by NC> CPAP x 3 hrs last night, side laying, 95-98% sats. Voided 2000 cc after lasix yesterday. Exam Narrative Exam Narrative: General: Pleasant obese male who is asleep on his back when I came to see him, wearing NC, 3L of O2. HEENT: EOMI, MMM Cardiovascular: RRR, no m/r/g Lungs: quiet rales B bases Gastrointestinal: soft, nontender, nondistended Extremities: +1 edema BLE's - symmetric, 2+ pedal pulses, no c/c. Objective Last Vital Signs Temp 37 C 09/10/21 03:20 Pulse 79 09/10/21 03:42 Resp 23 10/25/21 04:30 BP 107/68 09/10/21 03:42 Pulse Ox 93 09/10/21 06:00 Laboratory Results - last 24 hr 09/09/21 09/09/21 09/10/21 07:10 07:10 06:25 WBC RBC Hgb Hct MCV MCH MCHC RDW Plt Count MPV Immature Gran % Neutrophils % Lymphocytes % Monocytes % Eosinophils % Basophils % Nucleated RBC % Absolute Neutrophils Absolute Lymphocytes Absolute Monocytes Absolute Eosinophils Absolute Basophils D-Dimer 1139 H Sodium 140 Potassium 4.4 Chloride 105 Carbon Dioxide 27.4 Anion Gap 7.6 BUN 26 H Creatinine 0.9 Estimated GFR/1.73 m2 >= 60.00 Glucose 103 Calcium 9.0 Magnesium 2.3 Ferritin 1277 H 1240 H C-Reactive Protein 0.24 Procalcitonin 09/10/21 09/10/21 09/10/21 06:25 06:25 06:25 WBC 10.89 H RBC 4.83 Hgb 13.7 Hct 41.7 MCV 86.3 MCH 28.4 MCHC 32.9 RDW 14.3 H Plt Count 320 MPV 10.5 Immature Gran % 1.4 Neutrophils % 76.0 Lymphocytes % 16.0 Monocytes % 6.1 Eosinophils % 0.2 Basophils % 0.3 Nucleated RBC % 0 Absolute Neutrophils 8.28 H Absolute Lymphocytes 1.74 Absolute Monocytes 0.66 Absolute Eosinophils 0.02 Absolute Basophils 0.03 D-Dimer 797 H Sodium Potassium Chloride Carbon Dioxide Anion Gap BUN Creatinine Estimated GFR/1.73 m2 Glucose Calcium Magnesium Ferritin C-Reactive Protein Procalcitonin < 0.1 PAWSS Have you Been Recently Intoxicated or Drunk Within the Last 30 days?: No Have you Ever Experienced Previous Episodes of Alcohol Withdrawal?: No Have you ever Experienced Withdrawal Seizures?: No Have you ever Experienced Delirium Tremens(DT)s?: No Have you ever undergone Alcohol Rehabilitation Treatment (i.e, inpt ot outpatient treatment programs)?: No Have you ever Experienced Blackouts?: No Have you ever Combined Alcohol with other Downers within the last 90 days?: No Have you ever Combined Alcohol with any other Substance of Abuse during the last 90 days?: No Evidence of Increased Autonomic Activity (i.e. HR>120, tremor, sweating, agitation, nausea)?: No Result: 0
--- NOTE | 2021-09-10 08:42 | PDOC.CMPRO ---
- If Service Date Differs Date of service: 09/10/21 Time of Service: 17:41 Care Management Progress Note S/O: Keon's level of care transitioned to Med Surg status. He remains on Covid-19 precautions and is waiting to be transferred to the MS floor. Keon identifies that due to being sick for a few weeks prior to hospitalization, he does not have food or clean laundry when he returns home, anticipate his sister will provide some level of support upon discharge. New VNA orders anticipated as well. CM continues to follow. A: 60 year old male admitted to [facility] on 08/28/2021 for COVID-19, Acute hypoxic respiratory failure. 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 He continues to be treated for COVID in the ICU, and remains on precautions. CM continues to follow.
[2021-09-10] MEDS: Ipratropium/Albuterol 4 GM 120 PUFF INH IH ×3 (10:00→21:35)
[2021-09-10] MEDS: Polyethylene Glycol 3350 17 GM PACKET PO (10:43)
[2021-09-10] MEDS: Normal Saline Flush 10 ML SYR IVP ×3 (10:44→21:39)
[2021-09-10] MEDS: Cholecalciferol (Vitamin D3) 1,000 UNIT TAB 2000 UNITS PO (10:45)
[2021-09-10] MEDS: Docusate Sodium 100 MG CAP PO ×2 (10:45→21:35)
[2021-09-10] MEDS: Ascorbic Acid 500 MG TAB 1000 MG PO ×2 (10:45→21:35)
[2021-09-10] MEDS: Dexamethasone 4 MG/ML VIAL 6 MG IVP (14:15)
[2021-09-10] MEDS: Furosemide 20 MG/2 ML VIAL IVP (14:16)
[2021-09-10] MEDS: FAMOTIDINE 20 MG/50 ML BAG 200 MG IVPB (15:01)
[2021-09-10] MEDS: Normal Saline 500 ML IV (15:02)
[2021-09-10] MEDS: Melatonin 3 MG TAB PO (21:35)
[2021-09-11] VITALS (12 sets, daily range): BP systolic 117–142; BP diastolic 67–92; PULSE 55–141; RESP 15–24; TEMP 35.4–36.7; O2SAT 90–97
[2021-09-11] MEDS: Normal Saline Flush 10 ML SYR IVP ×3 (09:17→19:27)
[2021-09-11] MEDS: Furosemide 20 MG/2 ML VIAL IVP (09:17)
[2021-09-11] MEDS: Cholecalciferol (Vitamin D3) 1,000 UNIT TAB 2000 UNITS PO (09:18)
[2021-09-11] MEDS: Docusate Sodium 100 MG CAP PO ×2 (09:18→19:27)
[2021-09-11] MEDS: Ascorbic Acid 500 MG TAB 1000 MG PO ×2 (09:19→19:28)
[2021-09-11] MEDS: Polyethylene Glycol 3350 17 GM PACKET PO (09:19)
[2021-09-11] MEDS: Ipratropium/Albuterol 4 GM 120 PUFF INH IH ×4 (09:29→19:26)
--- NOTE | 2021-09-11 10:06 | PDOC.CMPRO ---
- If Service Date Differs Date of service: 09/11/21 Time of Service: 10:06 Care Management Progress Note S/O: Keon transitioned to Med Surg status and remains on Covid-19 precautions. He is currently 95% on 3L, RT will continue to decrease his supplemental O2 and monitor patient. Keon identified that due to being sick for a few weeks prior to hospitalization, he does not have food or clean laundry when he returns home, anticipate his sister will provide some level of support upon discharge. New VNA orders anticipated as well. CM continues to follow. A: 60 year old male admitted to [facility] on 08/28/2021 for COVID-19, Acute hypoxic respiratory failure. 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 Respiratory continues to monitor patient and his home O2 needs will be better known closer to discharge. He continues to be treated for COVID and remains on precautions. CM continues to follow.
[2021-09-11] MEDS: Dexamethasone 4 MG/ML VIAL 6 MG IVP (14:49)
--- NOTE | 2021-09-11 16:46 | W.PM.PROGNOT ---
Date of Service Date of service: 09/11/21 Time of Service: 16:46 Assessment and Plan Assessment and plan (1) COVID-19: Status: Acute Assessment and plan: Complicated by acute PEs. No DVTs on BLEs on dopplers. O2 requirement is 2L by NC, improved. Continue diuretics. Continue dexamethasone, baricitinib, anticoagulation. Finished remdesivir. Wean O2 as tolerated - encourage IS/acapella/proning. Continue to trend inflammatory markers. Continue supplementation of Vitamin C and D. (2) Acute pulmonary embolism: Status: Acute Assessment and plan: Continue lovenox 150 mg SC Q12hrs. No evidence of RV strain on echo. No evidence of DVT on venous doppler on 08/29 and 09/10. (3) Acute respiratory failure with hypoxia: Status: Acute Assessment and plan: Multifactorial - due to COVID-19 as well as acute PE. Wean O2 as tolerated. As above (4) Hypertension: Status: Chronic Assessment and plan: Not requiring BP meds at this time. Qualifiers: Hypertension type: unspecified Qualified Code(s): I10 - Essential (primary) hypertension (5) Vitamin D deficiency: Status: Acute Assessment and plan: Replete (6) Discharge planning issues: Status: Acute Assessment and plan: Full code Continues to require hospitalization. Subjective Subjective Interval history since last seen: Mr Jackson feels better. He is on 2L of O2. Denies dizziness, chest pain, shortness of breath, nausea. Exam Narrative Exam Narrative: General: Pleasant obese male who is sitting up in a chair, wearing NC, 2L of O2. HEENT: EOMI, MMM Cardiovascular: RRR, no m/r/g Lungs: quiet rales B bases Gastrointestinal: soft, nontender, nondistended Extremities: +1 edema BLE's - symmetric, unchanged, 2+ pedal pulses, no c/c. Objective Last Vital Signs Temp 35.9 C L 09/11/21 15:07 Pulse 83 09/11/21 15:07 Resp 20 09/11/21 15:07 BP 126/80 09/11/21 15:07 Pulse Ox 95 09/11/21 15:07 PAWSS Have you Been Recently Intoxicated or Drunk Within the Last 30 days?: No Have you Ever Experienced Previous Episodes of Alcohol Withdrawal?: No Have you ever Experienced Withdrawal Seizures?: No Have you ever Experienced Delirium Tremens(DT)s?: No Have you ever undergone Alcohol Rehabilitation Treatment (i.e, inpt ot outpatient treatment programs)?: No Have you ever Experienced Blackouts?: No Have you ever Combined Alcohol with other Downers within the last 90 days?: No Have you ever Combined Alcohol with any other Substance of Abuse during the last 90 days?: No Evidence of Increased Autonomic Activity (i.e. HR>120, tremor, sweating, agitation, nausea)?: No Result: 0
[2021-09-11] MEDS: FAMOTIDINE 20 MG/50 ML BAG 200 MG IVPB (17:06)
[2021-09-11] MEDS: Melatonin 3 MG TAB PO (21:41)
[2021-09-12] VITALS (10 sets, daily range): BP systolic 124–138; BP diastolic 74–91; PULSE 60–93; RESP 17–20; TEMP 35.3–36.5; O2SAT 92–96
[2021-09-12] MEDS: Polyethylene Glycol 3350 17 GM PACKET PO (08:07)
[2021-09-12] MEDS: Ascorbic Acid 500 MG TAB 1000 MG PO ×2 (08:07→20:53)
[2021-09-12] MEDS: Cholecalciferol (Vitamin D3) 1,000 UNIT TAB 2000 UNITS PO (08:07)
[2021-09-12] MEDS: Docusate Sodium 100 MG CAP PO ×2 (08:08→20:52)
[2021-09-12] MEDS: Furosemide 20 MG/2 ML VIAL IVP (08:08)
[2021-09-12] MEDS: Normal Saline Flush 10 ML SYR IVP ×4 (08:08→20:54)
[2021-09-12] MEDS: Ipratropium/Albuterol 4 GM 120 PUFF INH IH ×4 (08:09→20:53)
--- NOTE | 2021-09-12 09:07 | PDOC.CMPRO ---
- If Service Date Differs Date of service: 09/12/21 Time of Service: 18:45 Care Management Progress Note S/O: Keon transitioned to Med Surg status and remains on Covid-19 precautions. He is currently 1L O2, RT will continue to decrease his supplemental O2 and monitor patient. Keon identified that due to being sick for a few weeks prior to hospitalization, he does not have food or clean laundry when he returns home, but stated his family will help him. Keon requested activity book, CM provided book and strategy game. New VNA orders anticipated as well. CM continues to follow. A: 60 year old male admitted to [facility] on 08/28/2021 for COVID-19, Acute hypoxic respiratory failure. 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 Respiratory continues to monitor patient and his home O2 needs will be better known closer to discharge. He continues to be treated for COVID and remains on precautions. CM continues to follow.
[2021-09-12] MEDS: Dexamethasone 4 MG/ML VIAL 6 MG IVP (14:40)
[2021-09-12] MEDS: FAMOTIDINE 20 MG/50 ML BAG 200 MG IVPB (16:09)
[2021-09-12] MEDS: Normal Saline 500 ML IV (16:10)
--- NOTE | 2021-09-12 18:12 | W.PM.PROGNOT ---
Date of Service Date of service: 09/12/21 Time of Service: 16:55 Assessment and Plan Assessment and plan (1) COVID-19: Status: Acute Assessment and plan: Complicated by acute PEs. No DVTs on BLEs on dopplers. O2 requirement is 1L by NC, improved. Continue diuretics. Continue dexamethasone, baricitinib, anticoagulation. Finished remdesivir. Wean O2 as tolerated - encourage IS/acapella/proning. No bloodwork tomorrow. Continue supplementation of Vitamin C and D. (2) Acute pulmonary embolism: Status: Acute Assessment and plan: Continue lovenox 150 mg SC Q12hrs. No evidence of RV strain on echo. No evidence of DVT on venous doppler on 08/29 and 09/10. (3) Acute respiratory failure with hypoxia: Status: Acute Assessment and plan: Multifactorial - due to COVID-19 as well as acute PE. Wean O2 as tolerated. As above (4) Hypertension: Status: Chronic Assessment and plan: Not requiring BP meds at this time. Qualifiers: Hypertension type: unspecified Qualified Code(s): I10 - Essential (primary) hypertension (5) Vitamin D deficiency: Status: Acute Assessment and plan: Replete (6) Discharge planning issues: Status: Acute Assessment and plan: Full code Continues to require hospitalization, nearing discharge. Subjective Subjective Interval history since last seen: Jay is on 1L of O2, but states he got pretty short of breath when he went to the bathroom. He denies dizziness, chest pain, nausea. He was very excited about dinner. He is frustrated that it is taking so long to get better, but we discussed about the tremendous progress he has made just in the last couple of days. He is worried that he will be short of breath when walking forever. Exam Narrative Exam Narrative: General: Pleasant obese male who is sitting up in a chair, wearing NC, 1L of O2. HEENT: EOMI, MMM Cardiovascular: RRR, no m/r/g Lungs: CTAB Gastrointestinal: soft, nontender, nondistended Extremities: trace edema BLE's - symmetric, improved, wearing TEDs, 2+ pedal pulses, no c/c. Objective Last Vital Signs Temp 36.4 C L 09/12/21 16:20 Pulse 82 09/12/21 16:55 Resp 18 09/12/21 16:20 BP 127/76 09/12/21 16:20 Pulse Ox 92 09/12/21 16:20 PAWSS Have you Been Recently Intoxicated or Drunk Within the Last 30 days?: No Have you Ever Experienced Previous Episodes of Alcohol Withdrawal?: No Have you ever Experienced Withdrawal Seizures?: No Have you ever Experienced Delirium Tremens(DT)s?: No Have you ever undergone Alcohol Rehabilitation Treatment (i.e, inpt ot outpatient treatment programs)?: No Have you ever Experienced Blackouts?: No Have you ever Combined Alcohol with other Downers within the last 90 days?: No Have you ever Combined Alcohol with any other Substance of Abuse during the last 90 days?: No Evidence of Increased Autonomic Activity (i.e. HR>120, tremor, sweating, agitation, nausea)?: No Result: 0
[2021-09-12] MEDS: Melatonin 3 MG TAB PO (20:52)
[2021-09-12] MEDS: LORazepam 0.5 MG TAB PO (20:53)
[2021-09-13] VITALS (12 sets, daily range): BP systolic 100–138; BP diastolic 51–93; PULSE 64–121; RESP 16–24; TEMP 35.1–36.3; O2SAT 87–96
[2021-09-13] MEDS: Furosemide 20 MG/2 ML VIAL IVP (07:43)
[2021-09-13] MEDS: Polyethylene Glycol 3350 17 GM PACKET PO (07:43)
[2021-09-13] MEDS: Normal Saline Flush 10 ML SYR IVP ×3 (07:44→21:46)
[2021-09-13] MEDS: Docusate Sodium 100 MG CAP PO ×2 (07:45→21:46)
[2021-09-13] MEDS: Cholecalciferol (Vitamin D3) 1,000 UNIT TAB 2000 UNITS PO (07:45)
[2021-09-13] MEDS: Ascorbic Acid 500 MG TAB 1000 MG PO ×2 (07:45→21:45)
[2021-09-13] MEDS: Ipratropium/Albuterol 4 GM 120 PUFF INH IH ×3 (07:45→21:47)
--- NOTE | 2021-09-13 10:51 | W.PM.PROGNOT ---
Date of Service Date of service: 09/13/21 Time of Service: 10:51 Assessment and Plan Assessment and plan (1) COVID-19: Status: Acute Assessment and plan: Complicated by acute PEs. No DVTs on BLEs on dopplers. O2 requirement is RA at rest and 2 L with activity by NC, improved. Continue diuretics. Continue dexamethasone. Finished baricitinib, remdesivir. Continue anticoagulation. Will rx eliquis and verify cost. Wean O2 as tolerated - encourage IS/acapella/proning.ow. Continue supplementation of Vitamin C and D. (2) Acute pulmonary embolism: Status: Acute Assessment and plan: Continue lovenox 150 mg SC Q12hrs. Will rx eliquis and verify cost. No evidence of RV strain on echo. No evidence of DVT on venous doppler on 08/29 and 09/10. (3) Acute respiratory failure with hypoxia: Status: Acute Assessment and plan: Multifactorial - due to COVID-19 as well as acute PE. Wean O2 as tolerated. As above (4) Hypertension: Status: Chronic Assessment and plan: Not requiring BP meds at this time. Qualifiers: Hypertension type: unspecified Qualified Code(s): I10 - Essential (primary) hypertension (5) Vitamin D deficiency: Status: Acute Assessment and plan: Replete (6) Discharge planning issues: Status: Acute Assessment and plan: Full code Plan to discharge home tomorrow. May or may not need O2 - will need exercise oximetry on discharge. Subjective Subjective Interval history since last seen: I'm better today, just all frustrated. Physically I'm ok. Went walking with RT - felt out of breath, but was ok. Would know when to rest. Better than yesterday. No cough except for when got excited. No nausea/diarrhea. No chest pain. On amb. pulse ox, desaturated down to 86% on RA and needed 2L to ambulate. He is saturating 93% on RA at rest. Wants to go home tomorrow morning and hopefully without O2. Wants a new PCP - care management is aware. His sister will give him a ride. Exam Narrative Exam Narrative: Today's visit happened over the phone. The patient was very mildly dyspneic when talking about an emotional subject of discharge, but was able to complete sentences. Objective Last Vital Signs Temp 35.1 C L 09/13/21 08:05 Pulse 70 09/13/21 08:05 Resp 16 09/13/21 08:05 BP 136/86 09/13/21 08:05 Pulse Ox 93 09/13/21 08:25 PAWSS Have you Been Recently Intoxicated or Drunk Within the Last 30 days?: No Have you Ever Experienced Previous Episodes of Alcohol Withdrawal?: No Have you ever Experienced Withdrawal Seizures?: No Have you ever Experienced Delirium Tremens(DT)s?: No Have you ever undergone Alcohol Rehabilitation Treatment (i.e, inpt ot outpatient treatment programs)?: No Have you ever Experienced Blackouts?: No Have you ever Combined Alcohol with other Downers within the last 90 days?: No Have you ever Combined Alcohol with any other Substance of Abuse during the last 90 days?: No Evidence of Increased Autonomic Activity (i.e. HR>120, tremor, sweating, agitation, nausea)?: No Result: 0
--- NOTE | 2021-09-13 12:34 | PDOC.CMPRO ---
- If Service Date Differs Date of service: 09/13/21 Time of Service: 12:34 Care Management Progress Note S/O: Keon remains on Covid-19 precautions. RT continues to wean his supplemental O2, as tolerated. Per provider, he may or may not need O2 and will need an exercise oximetry on discharge. He will likely be discharged home on Xaralto for Afib (PA was approved today). Keon identified that due to being sick for a few weeks prior to hospitalization, he does not have food or clean laundry when he returns home, but stated his family will help him. Keon is anticipating being discharged home tomorrow. Transportation will be via private vehicle with family as he does not want EMS transportation. Will need new VNA orders, CM notified [facility]. In addition, patient reports dissatisfaction with his current PCP, CM gave him a list of local providers in the event that he wants to establish care with a new provider. CM continues to follow. A: 60 year old male admitted to [facility] on 08/28/2021 for COVID-19, Acute hypoxic respiratory failure. P: Keon will return home when ready per MD via private vehicle with family with new [facility] SN/PT/OT/[employer]. CM notified Kaila at [facility]. He will be discharged on Xaralto , PA was approved. Per provider, he may or may not need O2 and will need an exercise oximetry on discharge. RT notified [facility] and they are waiting to find out when he's being discharged so they can deliver home O2. RT continues to follow. CM continues to follow.
[2021-09-13] MEDS: Dexamethasone 4 MG TAB 6 MG PO (14:31)
[2021-09-13] MEDS: Rivaroxaban 15 MG TABLET PO (21:45)
[2021-09-13] MEDS: Melatonin 3 MG TAB PO (21:45)
[2021-09-14 01:41] VITALS: BP 119/75; PULSE 79; RESP 16; TEMP 36.4; O2SAT 92
[2021-09-14 04:15] VITALS: BP 124/80; PULSE 83; RESP 16; TEMP 36.4; O2SAT 93
[2021-09-14 07:00] VITALS: PULSE 68
[2021-09-14] MEDS: Ipratropium/Albuterol 4 GM 120 PUFF INH IH ×3 (08:52→16:24)
[2021-09-14] MEDS: Normal Saline Flush 10 ML SYR IVP (08:52)
[2021-09-14] MEDS: Cholecalciferol (Vitamin D3) 1,000 UNIT TAB 2000 UNITS PO (08:53)
[2021-09-14] MEDS: Docusate Sodium 100 MG CAP PO (08:53)
[2021-09-14] MEDS: Ascorbic Acid 500 MG TAB 1000 MG PO (08:53)
[2021-09-14] MEDS: Polyethylene Glycol 3350 17 GM PACKET PO (08:54)
[2021-09-14] MEDS: Rivaroxaban 15 MG TABLET PO (08:54)
[2021-09-14 08:59] VITALS: BP 124/89; PULSE 81; RESP 22; TEMP 35.4; O2SAT 91
[2021-09-14] MEDS: Dexamethasone 4 MG TAB 6 MG PO (14:18)
[2021-09-14 14:23] VITALS: PULSE 100; PULSE 131; RESP 22; RESP 30; O2SAT 86; O2SAT 90; O2SAT 94
--- NOTE | 2021-09-14 14:53 | W.PM.PROGNOT ---
Date of Service Date of service: 09/14/21 Time of Service: 14:53 Assessment and Plan Assessment and plan (1) COVID-19: Status: Acute Assessment and plan: Complicated by acute PEs. No DVTs on BLEs on dopplers. O2 requirement is RA at rest and 2 L with activity by NC, improved. Discharge home on a taper dose of Decadron. Continue anticoagulation for the next 3 months with Xarelto at a dose of 15 mg twice daily for 3 weeks then 20 mg once a day. Continue Decadron and a tapered dose will start him on 6 mg daily for the next week then decrease him to 4 mg daily for a week and then 2 mg daily for a week. Continue home oxygen at 2 L/min per nasal cannula. Encourage him to continue use of his incentive spirometer and Acapella. (2) Acute pulmonary embolism: Status: Acute Assessment and plan: Xarelto 15 mg twice daily x21 days then 20 mg daily x3 months No evidence of RV strain on echo. No evidence of DVT on venous doppler on 08/29 and 09/10. Qualifiers: Pulmonary embolism type: other Acute cor pulmonale presence: without acute cor pulmonale Qualified Code(s): I26.99 - Other pulmonary embolism without acute cor pulmonale (3) Acute respiratory failure with hypoxia: Status: Acute Assessment and plan: Multifactorial - due to COVID-19 as well as acute PE. Wean O2 as tolerated. As above (4) Hypertension: Status: Chronic Assessment and plan: Not requiring BP meds at this time. We will discontinue home blood pressure meds for now follow-up with his PCP. Patient has requested a change in PCPs. to arrange PCP follow up. Qualifiers: Hypertension type: unspecified Qualified Code(s): I10 - Essential (primary) hypertension (5) Vitamin D deficiency: Status: Acute Assessment and plan: Replete (6) Discharge planning issues: Status: Acute Assessment and plan: Full code Plan to discharge home today on supplemental home oxygen at 2 LPM Subjective Subjective Interval history since last seen: Patient has been hospitalized for 17 days with Covid pneumonia. Unfortunately is not been able to be weaned completely off oxygen. At rest his room air oxygen saturation is 91 to 94% however with ambulation his oxygen saturation drops down into the mid 80s. Respiratory therapy is set him up with home oxygen. He has completed his remdesivir and baricitinib therapy. He remains on Decadron although that is been switched to oral Decadron 6 mg daily. He is currently on Xarelto for pulmonary emboli. Dr. Richardson arranged with his insurance to get prior authorization for Xarelto which was approved. Patient indicated he gets his prescriptions at [facility] in [facility]. Patient is anxious to get home he says overall he feels fine. Again I expressed to the patient that he needs to be compliant with wearing his oxygen with any kind of activity he needs to gradually ease himself back into physical activity. I also emphasized his need to remain on anticoagulants for at least the next 3 months. Patient is a former smoker and recently had been vaping up until about a month ago. I expressed to him that he needs to refrain from any smoking or vaping and explained the vaping is just as dangerous to his lungs of smoking. He disagreed with my opinion on this but I explained to him in light of his Covid pneumonia he has had significant lung damage which is necessitated the need for oxygen and therefore he should not be vaping or smoking. Exam Narrative Exam Narrative: Obese middle-aged male sitting up in his chair not wearing his oxygen he is alert and oriented person place time circumstance in no acute respiratory distress not using accessory respiratory muscles. Chest is barrel chested Heart regular rate and rhythm without murmur rub or gallop Lungs with fine basilar rales no rhonchi or wheezes Abdomen is obese soft nontender Lower extremities without peripheral cyanosis or edema no calf tenderness or swelling. Objective Last Vital Signs Temp 35.4 C L 09/14/21 08:59 Pulse 81 09/14/21 08:59 Resp 22 09/14/21 08:59 BP 124/89 09/14/21 08:59 Pulse Ox 91 L 09/14/21 08:59 PAWSS Have you Been Recently Intoxicated or Drunk Within the Last 30 days?: No Have you Ever Experienced Previous Episodes of Alcohol Withdrawal?: No Have you ever Experienced Withdrawal Seizures?: No Have you ever Experienced Delirium Tremens(DT)s?: No Have you ever undergone Alcohol Rehabilitation Treatment (i.e, inpt ot outpatient treatment programs)?: No Have you ever Experienced Blackouts?: No Have you ever Combined Alcohol with other Downers within the last 90 days?: No Have you ever Combined Alcohol with any other Substance of Abuse during the last 90 days?: No Evidence of Increased Autonomic Activity (i.e. HR>120, tremor, sweating, agitation, nausea)?: No Result: 0
--- NOTE | 2021-09-14 15:11 | DSE_ITS ---
Date of service: 09/14/21 Time of Service: 15:11 DS: Diagnosis Discharge Diagnosis (1) COVID-19: Status: Acute Asessment and Plan: Patient had symptoms of Covid beginning August 20, 2021 and had an outpatient test that showed him to be + August 22, 2021 and presented emergency department with shortness of breath and hypoxemia. Patient required high flow nasal cannula and CPAP was admitted to the medical intensive care unit August 28, 2021 through September 09, 2021 and was treated with IV Decadron, IV remdesivir, baricitinib. His course was complicated by subsegmental right lower lobe pulmonary embolism but no DVTs. He was treated with Lovenox 150 mg subcutaneously every 12 hours and transition to rivaroxaban 15 mg p.o. twice daily. He will need to continue his rivaroxaban for 3 weeks i.e. 21 days then go on rivaroxaban 20 mg daily for the next 3 months. Patient should consider COVID-19 vaccination after recovery from his acute pneumonia. This should be obtained in the next 8 to 12 weeks. Patient was placed on a tapering dose of dexamethasone and continued on Pepcid for GI protection while on dexamethasone. (2) Acute pulmonary embolism: Status: Acute Asessment and Plan: As above. Continue rivaroxaban for the next 3 months. (3) Acute respiratory failure with hypoxia: Status: Acute Asessment and Plan: Improving after treatment for Covid and pulmonary embolism. Still requiring supplemental oxygen at 2L/min per nasal cannula with any kind of activity. (4) Hypertension: Status: Chronic Asessment and Plan: Patient did not require antihypertensives during his hospital stay but may return to his previous dose of lisinopril and hydrochlorothiazide at the discretion of his primary care provider. Patient should carefully monitor his blood pressures. (5) Vitamin D deficiency: Status: Acute Asessment and Plan: Patient was found to be vitamin D deficient With a 25 hydroxy vitamin D level of 11.3 ng/mL. With a normal level being 30-100 ng/mL. Patient was started on cholecalciferol 2000 units p.o. daily (6) Discharge planning issues: Status: Acute Discharge Plan Disposition Patient Disposition: HOME W/HOME HEALTH SERVICE Condition: Improving Discharge Details Reason For Visit: COVID-19 Pneumonia with Hypoxia,Acute PE Admit Date/Time: 10/13/21 13:45 Admit Provider: Rossy Richardson Attending Provider: Rossy Richardson Primary Care Provider: Terrence Ramos Hospital Course Hospital Course: 60-year-old white male with a past medical history of essential hypertension, hyperlipidemia, obesity with a BMI of 47.5 who is unvaccinated against COVID-19 developed symptoms of headache stuffy nose cough that was nonproductive and not associated with a chest pain. Symptoms began around August 20, 2021 he underwent testing for COVID-19 on August 22, 2021 and was found to be positive. He presented to the emergency department August 28, 2021 with increasing shortness of breath was found to be hypoxemic with a SPO2 of 84%. CT of the chest was performed and showed diffuse bilateral groundglass confluent infiltrates with no pleural effusions but cardiomegaly and he was also noted to have a right lower lobe subsegmental pulmonary embolism. He was admitted to the medical intensive care unit and placed on high flow oxygen and started on Lovenox for his pulmonary embolism and was begun on treatment for COVID-19 including Remdesivir Decadron and baricitinib was placed on vitamin D and vitamin C supplementation as well as Pepcid for GI prophylaxis. He required a PICC line in his left arm for IV access. Pulmonary consultation was obtained with Dr. Claudia Krishnan on September 02, 2021 with follow-up on September 03 the 2020. Patient was given pulmonary toiletry with incentive spirometry and Acapella and placed on diuretics to maintain a negative fluid balance. Patient was encouraged to wear CPAP mask because of his high oxygen requirements and initially was reluctant to wear the CPAP mask but with some mild sedation with Ativan at night he was able to tolerate wearing the CPAP mask. Because of an air leak he did require facial shaving to remove facial hair to get adequate seal on his CPAP. Patient was encouraged to practice proning maneuvers whenever in bed. He did require a lot of encouragement to prone and to rotate from side to side to prevent basilar atelectasis. Venous duplex scan was obtained of his legs and showed no DVT. Inflammatory markers were monitored in a serial fashion his initial CBC showed no leukocytosis and no anemia but a relative lymphocytopenia. His D-dimer was elevated at 986 on admission and peaked at 1304 his last D-dimer level was 797. Blood lactate level is normal on admission. He had a mild transaminitis on admission with an AST of 82 and an ALT of 75 and LDH of 714. Ferritin level is elevated greater than 2000 with the last level decreasing to 1240. Renal function was normal with a BUN of 13 creatinine 1.0 on admission and at discharge his BUN was 26 creatinine 0.9. Patient was maintained in the intensive care unit until September 09, 2021 at which point he was no longer requiring high flow oxygen and was able to be transition to a nasal cannula. At that time he was on 4 L nasal cannula. He was on the medical/surgical floor from September 09, 2021 until his discharge on September 14, 2021. His oxygen needs decreased over time to the point where he was on room air at rest but still requiring 2 L/min nasal cannula with any activity. Respiratory therapy performed an ambulatory pulse oximetry study on September 13, 2021. At that time he was 94% oxygen saturation at rest on room air I walk 60 feet dropping his oxygen saturation down to 86% but with 2 L/min nasal cannula he was able to recover after 3 minutes and he is able to walk another 300 feet maintaining his oxygen saturation at 91%. Multiple procalcitonin levels were checked and found to be normal therefore it was felt that he did not require parenteral antibiotics. His CRP which had been elevated at 12.6 on admission had declined down to 0.24 which was normal on September 10, 2021. His vitamin D level been checked on admission was found to be low at 11.3 and he was given vitamin D supplementation. He had been placed on Lovenox 150 mg subcutaneously every 12 hours to treat his pulmonary embolism and Dr. Richardson, attending hospitalist, he will check with his insurance regarding coverage with the [facility] She was informed that they would cover Xarelto (rivaroxaban) but not apixaban. He was placed on rivaroxaban 15 mg twice daily on September 13, 2021. He completed his remdesivir therapy on September 05, 2021 having received 10 doses of remdesivir beginning August 28, 2021. Patient completed his treatment with dexamethasone and baricitinib. He was discharged home on September 14, 2021 in much improved condition. He was not experiencing any dyspnea at rest and he was practicing his proning procedure as well as using his incentive spirometry and his Acapella device to improve atelectasis. He was prescribed oxygen at 2 L/min per nasal cannula to be worn anytime he is ambulating or out of bed. Home health services have been ordered form including nursing and PT and [employer]ER. Patient requested a new primary care provider and hearing care professional was working with the patient to facilitate that. In the interim he should follow-up with his current primary care provider Terrence Ramos to coordinate his home health services. Home Meds and New Rx's Prescriptions: New albuterol sulfate [Ventolin HFA] 90 mcg/actuation Hfa Aerosol Inhaler 2 puff inhalation Q4H PRN PRNQty: 6.7 RF: 0 ascorbic acid (vitamin C) [Vitamin C] 500 mg Tablet 1,000 mg PO BID Qty: 0 RF: 0 cholecalciferol (vitamin D3) 25 mcg (1,000 unit) Tablet 2,000 unit PO DAILY Qty: 0 RF: 0 dexamethasone 4 mg tablet See Rx Instructions .ROUTE .COMPLEX Qty: 6 RF: 0 famotidine [Pepcid] 20 mg tablet 20 mg PO BID Qty: 20 RF: 0 Xarelto 15 mg tablet 15 mg PO BID Qty: 42 RF: 0 rivaroxaban 20 mg tablet 20 mg PO DAILY Qty: 30 RF: 2 Continued lisinopril-hydrochlorothiazide 20-12.5 mg tablet 1 tab PO DAILY RF: 0 Discharge Instructions Instructions: Rivaroxaban (By mouth), Pulmonary Embolism (DC), COVID-19 (Coronavirus Disease 2019) (DC), COVID-19: Slow the Coronavirus Spread (DC), Face Coverings (Masks) and COVID-19 (DC) Additional Instructions: Continue rivaroxaban 15 mg by mouth twice a day for the next 3 weeks and then you will need a prescription for rivaroxaban 20 mg once a day for the next 3 months. This is an anticoagulant to treat your pulmonary embolism (lung blood clots). Continue dexamethasone in tapering doses beginning at 4 mg daily for 4 days then 2 mg daily for 4 days. This is a corticosteroid anti-inflammatory for your lungs. You may resume your antihypertensive medication of lisinopril and hydrochlorothiazide but monitor your blood pressure carefully. If your systolic blood pressure is sustained to less than 110 mm I would withhold your blood pressure medications until you see your primary care provider. Stand Alone Forms: Nursing Discharge Form Referrals: Terrence Ramos [Primary Care Provider] - (Please call Thursday to make a follow up appointment) Activity:: Activity as Tolerated Equipment/Supplies:: Oxygen (L/min Below) Diet:: Normal Diet Discharge Orders Discharge Orders: Discharge Order (Routine); Ordered 09/14/21 Ordered By: Erlin Julien Discharge Data Discharge Date/Time-TO BE ENTERED AT DEPARTURE: 09/14/21 17:28 DS: Summary Time Spent with Patient providing and/or coordinating discharge services: Greater than 30 minutes Status at Discharge Functional status at discharge: independent ambulation Overall status at discharge: patient is progressing back to baseline Mental Status: mental status grossly normal Speech and Movement: speech and movement normal Mood: congruent mood Affect: normal affect Exam Narrative Exam Narrative: Obese middle-aged male sitting up in his chair not wearing his oxygen he is alert and oriented person place time circumstance in no acute respiratory distress not using accessory respiratory muscles. Chest is barrel chested Heart regular rate and rhythm without murmur rub or gallop Lungs with fine basilar rales no rhonchi or wheezes Abdomen is obese soft nontender Lower extremities without peripheral cyanosis or edema no calf tenderness or swelling. Psych Mental Status: mental status grossly normal Speech and Movement: speech and movement normal Mood: congruent mood Affect: normal affect DS: Data Vitals/I&O Vitals and I&O: Vital Signs Temperature 35.4 C L 09/14/21 08:59 Temperature Source Tympanic 09/14/21 08:59 Pulse 81 09/14/21 08:59 Pulse Rhythm Regular 09/14/21 11:30 Pulse 99 H 09/04/21 10:20 Respiratory Rate 22 09/14/21 08:59 Respiratory Effort Short of Breath 09/14/21 11:30 Respiratory Depth Normal 09/14/21 11:30 Respiratory Pattern Normal 09/14/21 11:30 Blood Pressure 124/89 09/14/21 08:59 Blood Pressure Mean 81 09/10/21 17:04 Blood Pressure Position Sitting 09/09/21 10:00 Pulse Oximetry 91 L 09/14/21 08:59 Oxygen Delivery Method Room Air 09/14/21 08:59 Oxygen Flow Rate 0 09/14/21 08:59 Fraction of Inspired Oxygen (FIO2) 35 09/13/21 08:14 Pain Level 0 09/14/21 08:59 Comment 09/12/21 16:00 Intake & Output 09/13/21 09/14/21 09/14/21 23:59 11:59 23:59 Intake Total 360 / 600 Output Total 350 / 350 Balance 360 / -100 -350 / -350 Intake: IV Oral 350 / 590 Output: Urine 350 / 350 Other: Urine Color Straw Urine Appearance Clear Clear Urine Odor Normal Voiding Methods Urinal PFSH Medical History (Updated 09/14/21 @ 15:03 by Erlin Julien) History of hypertension Hyperlipidemia Obesity, morbid, BMI 40.0-49.9 Surgical History (Updated 08/28/21 @ 20:04 by Rossy Rihcardson MD) Hx of hernia repair L inguinal hernia repair Status post left foot surgery Family History (Updated 08/28/21 @ 20:04 by Rossy Richardson MD) Mother Diabetes Paternal Grandmother Cancer Paternal Aunt Cancer Social History Smoking/Tobacco Use Status: Current every day Tobacco Type: e-cigarettes Smoking risk assessment performed?: Yes Alcohol Intake: current Alcohol Intake frequency: a few times a week Alcohol type: beer Drug use: Never Substance use type: does not use Do you feel safe at home: Yes Additional Social history: lives alone
[2021-09-14 15:20] VITALS: PULSE 94
--- NOTE | 2021-09-14 15:33 | PDOC.HHF2F_ITS ---
Home Health Certification Home Health Certification: 1. Encounter Date and Reason I certify that Keon Jackson was seen by Erlin Julien on 09/14/21 and that I had a [id number] encounter with this patient that meets the physician face to face encounter requirements. 2. Clinical Findings Supporting Skilled Need and Homebound Status I certify that home health services are medically necessary, include either intermittent senior living and/or physical/speech therapy, and that this p atient is homebound in that absences from the home require considerable and taxing effort and are infrequent or of short duration, or are attributable to the need to receive medical care. [X] (a) Attached documentation from encounter provides clinical findings supporting skilled need and homebound status (including what assistance patient requires to leave the home). The encounter with the patient was in whole, or in part, for the following medical condition, which is the primary reason for home health care: COVID-19 Pneumonia with Hypoxia,Acute PE Retirement: long-term to monitor patient's oxygen needs and assess response to treatment of his Covid. Nursing to coordinate home health services with his PCP as well as obtaining lab work and coordination of a medication changes. Physical Therapy: Physical therapy to evaluate and treat for generalized deconditioning and weakness secondary to recent Covid pneumonia. Speech Therapy: Homebound: Patient recent prolonged in-hospital stay for Covid pneumonia is made travel outside his home hazardous to his health and potentially life- threatening given his enduring hypoxemia 3. Certification and Authentication I certify that I composed the above information based on my clinical judgement relating to this patient's medical condition and, if applicable, clinical findings communicated to me by the NPP or inpatient physician who performed the Home Health Referral. All further orders will be obtained through ___Terrence Ramos (Community Based Physician - PCP)
--- NOTE | 2021-09-14 15:34 | PDOC.CMDIS ---
- If Service Date Differs Date of service: 09/14/21 Time of Service: 15:34 LACE Index Scoring Tool - Questions: Length of Stay (in days): 14 or more Acuity (Admit via E.D.?): Yes E.D. Visits: 1 - Answers: Total Score: 11 Risk of Readmission: High Risk Care Management Discharge Reason for Hospitalization: COVID-19, Acute hypoxic respiratory failure Discharge Plan: Discharge home via private vehicle with family with new [facility] SN/PT/OT/LUMBER TAILER (CM notified [facility]). New supplimental O2 arranged through [facility] and they were notified prior to discharge. Follow up withy PCP and discharge plan of care as prescribed. Patient/Family Education Needs: Review discharge instructions, limitations and plan to follow up with community providers. ask me three. Services Needed at Discharge: Home Health Care Services ([facility] SN/PT/OT/LUMBER TAILER), Oxygen Therapy (Home oxygen, through [facility] arranged by RT)
[2021-09-14] MEDS: Bacitracin 1 PACKET (17:50)
== END 2021-09-14 17:28 | disposition home health service (06) | DRG 177 ==
LOC: ER 10:50 → ICU 21:27 → MS 09-10 17:40
PROVIDERS: Family Medicine; Registered Nurse Emergency; Student in an Organized Health Care Education/Training Program; Admitting Provider Internal Medicine; Emergency Provider Physician Assistant; PCP Physician Assistant; Visit Provider Internal Medicine
DX: U07.1 COVID-19 (principal); J96.01 Acute respiratory failure with hypoxia; J12.82 Pneumonia due to coronavirus disease 2019; I26.93 Single subsegmental thrombotic pulmonary embolism without acute cor pulmonale; Z68.41 Body mass index [BMI] 40.0-44.9, adult; I45.2 Bifascicular block; I10 Essential (primary) hypertension; E78.5 Hyperlipidemia, unspecified; E66.01 Morbid (severe) obesity due to excess calories; F17.290 Nicotine dependence, other tobacco product, uncomplicated; E55.9 Vitamin D deficiency, unspecified; R43.2 Parageusia
CPT/HCPCS: 36410; 36415; 36592; 71275; 80048; 80053; 80076; 82306; 84145; 85027; 87635; 93005; 94618; 94640; 96361; 96365; 96366; 96372; 96375; 99285; 82728; 83036; 83605; 83615; 83735; 84484; 85025; 85379; 86140; 93010; 93306; 93970; 94660; 99231; 99232; 99233; 99239; 99291; J1100; J1650; J1941; J2060; J2930; J3490; J7613; J7620; J8540

== ENCOUNTER 2021-09-26 16:47 | Emergency (ER) | payer OTHER, SELFPAY ==
[2021-09-26] VITALS (28 sets, daily range): BP systolic 114–146; BP diastolic 64–89; PULSE 98–120; RESP 15–30; TEMP 36.5; O2SAT 90–100
--- NOTE | 2021-09-26 16:45 | RT.EKG_ITS ---
APPROVED REPORT Exam: Resting ECG Reason for Exam: sob Patient Location: E HR:106 bpm ECG Measurements Heart Rate 106 AXIS NE 164 P 53 QRSd 99 QRS -49 QT 343 T 30 QTc 455 Conclusion Sinus tachycardia...rate> 99 Left anterior fascicular block...axis(240,-40), init forces inf. Sinus. No STEMI. I have reviewed and interpreted ECG and agree with software generated interpretation.
--- NOTE | 2021-09-26 17:08 | ED.GENADUL_ITS ---
Discharge Plan Disposition Patient Disposition: HOME Condition: Improving Discharge Details Clinical Impression: Dyspnea on exertion, COVID-19 Primary Care Provider: Terrence Ramos ED Provider: Dorothy Biard Home Meds and New Rx's Prescriptions: New prednisone 20 mg tablet See Rx Instructions .ROUTE .COMPLEX Qty: 18 RF: 0 Continued albuterol sulfate [Ventolin HFA] 90 mcg/actuation Hfa Aerosol Inhaler 2 puff inhalation Q4H PRN PRNQty: 6.7 RF: 0 ascorbic acid (vitamin C) [Vitamin C] 500 mg Tablet 1,000 mg PO BID Qty: 0 RF: 0 cholecalciferol (vitamin D3) 25 mcg (1,000 unit) Tablet 2,000 unit PO DAILY Qty: 0 RF: 0 famotidine [Pepcid] 20 mg tablet 20 mg PO BID Qty: 20 RF: 0 Xarelto 15 mg tablet 15 mg PO BID Qty: 42 RF: 0 rivaroxaban 20 mg tablet 20 mg PO DAILY Qty: 30 RF: 2 Discharge Instructions Instructions: Dyspnea (ED), COVID-19 (Coronavirus Disease 2019) (ED) Additional Instructions: Your lab work, EKG and imaging is reassuring today. You do not have any new evidence of a blood clot in your lung and your pneumonia is overall improving. Even though your repeat Covid swab today is negative, it is suspected that your symptoms are persistent effects of Covid from last month. The possible expected course of Covid is that your symptoms may improve or worsen over the next several months. Continue to monitor your oxygen saturation. If you have persistent low oxygen and shortness of breath, return immediately to the emergency department for reevaluation. A prescription for steroids has been sent electronically to your pharmacy. Take this as directed until finished. Continue to use your albuterol inhaler as needed and directed for shortness of breath. Call your primary care doctor tomorrow to schedule a follow-up appointment for reevaluation within the next few days. Discharge Data Discharge Date/Time-TO BE ENTERED AT DEPARTURE: 09/26/21 20:12 Discharge Physician: Dorothy Baird Medical Decision Making 60-year-old male with a history of morbid obesity, hypertension, diagnosed with Covid on 08/22 and admitted for Covid pneumonia and pulmonary embolism on Xarelto presents for worsening shortness of breath over the last few days. Oxygen saturation 92 to 94% on room air on arrival. Heart rate 110s. He appears comfortable and nontoxic and speaking in full sentences. EKG notes a rate of 106, sinus, left anterior fascicular block, no STEMI nondiagnostic. Differential diagnosis includes expected course for Covid, worsening Covid pneumonia, acute on chronic PE, ACS. Will place an IV, bolus IV fluids, screening labs, CT chest, neb, IV steroids and reassess. Labs and imaging reviewed. White blood cell count six. Hemoglobin twelve. Normal electrolytes. Troponin negative. Covid swab negative. CT chest negative for acute PE and notes overall improvement of pneumonia. Patient reassessed and oxygen saturation 96 to 97% on room air. He states he feels much better and feels good to go home. Will send with an inhaler and another course of steroids. A prescription sent electronically to his pharmacy. He has a follow-up appointment with his primary care doctor later this month. He is advised to call his PCP tomorrow for follow-up. Usual and customary return precautions given prior to discharge. Medical Records Medical records reviewed: Yes I reviewed the patient's medical records. Imaging Data Radiologic Study: Radiologist's impression: CTA Chest With Contrast Exam date and time: 09/26/2021 5:36 PM Age: 60 years old Clinical indication: Other: Cough, SOB, R/O acute disease TECHNIQUE: Imaging protocol: Computed tomographic angiography of the chest with contrast. 3D rendering (Not supervised by radiologist): MIP and/or 3D reconstructed images were created by the technologist. Contrast material: OMNIPAQUE 350; Contrast volume: 100 ml; Contrast route: INTRAVENOUS (IV); COMPARISON: CT CHEST PE CTA 08/28/2021 12:27 PM FINDINGS: Pulmonary arteries: Normal. No pulmonary emboli. Aorta: Unremarkable. No aortic aneurysm. No aortic dissection. Lungs: Previously described extensive bilateral ground-glass infiltrates are again seen throughout both lungs. Pleural spaces: Unremarkable. No pneumothorax. No pleural effusion. Heart: No change mild cardiomegaly. Lymph nodes: There is mild to moderate mediastinal adenopathy not significantly changed from previous study. Liver: Fatty liver again seen. Spleen: Splenic calcifications consistent with old granulomatous change. Bones/joints: Unremarkable. No acute fracture. Soft tissues: Unremarkable. Other findings: Respiratory motion limits the exam. IMPRESSION: 1. No evidence for pulmonary embolus. 2. No significant change previously described pulmonary infiltrates. Correlation with COVID-19 status recommended. Lab Data Lab results reviewed: Yes I reviewed the patient's lab results. Labs: Laboratory Tests Range/Units 09/26/21 09/26/21 09/26/21 17:43 17:43 17:44 WBC (4.4-10.8) 10^3/uL 6.59 RBC (4.36-5.78) 10^6/uL 4.31 L Hgb (13.5-17.5) g/dL 12.4 L Hct (40.0-50.0) % 37.7 L MCV (80-95) fL 87.5 MCH (27.0-33.0) pg 28.8 MCHC (32.0-36.0) % 32.9 RDW (11.8-14.1) % 15.5 H Plt Count (130-400) 10^3/uL 146 D MPV (8.0-11.0) fL 10.1 Immature Gran % 0.5 Neutrophils % 72.8 Lymphocytes % 16.8 Monocytes % 7.6 Eosinophils % 2.1 Basophils % 0.2 Nucleated RBC % % 0 Absolute Neutrophils (1.2-6.7) 10^3/uL 4.80 Absolute Lymphocytes (1.2-3.4) 10^3/uL 1.11 L Absolute Monocytes (0.1-0.8) 10^3/uL 0.50 Absolute Eosinophils (0.0-0.7) 10^3/uL 0.14 Absolute Basophils (0.0-0.2) 10^3/uL 0.01 Sodium (136-145) mmol/L 139 Potassium (3.5-5.1) mmol/L 3.9 Chloride (98-107) mmol/L 105 Carbon Dioxide (21.0-32.0) mmol/L 26.4 Anion Gap (3-11) mmol/L 7.6 BUN (7-18) mg/dL 21 H Creatinine (0.70-1.30) mg/dL 1.0 Estimated GFR/1.73 m2 (mL/min/1.73m2) >= 60.00 Glucose (74-106) mg/dL 142 H Calcium (8.5-10.1) mg/dL 8.8 Magnesium (1.8-2.4) mg/dL 1.9 Total Bilirubin (0.2-1.0) mg/dL 0.3 AST (15-37) U/L 25 ALT (16-63) U/L 98 H Alkaline Phosphatase (46-116) U/L 92 Troponin I (<0.06) ng/mL < 0.05 Total Protein (6.4-8.2) g/dL 6.6 Albumin (3.4-5.0) g/dL 2.4 L COVID-19 Source Nasal/Nares SARS-CoV-2 (PCR) (Negative) Negative ECG Data Attestation: I personally reviewed and interpreted this ECG (s) as follows: Interpretation: Rate of 106, sinus, no acute ST elevation or depression. TX 164. QRS 99. QTc 455. HPI General Mode of arrival: ambulatory . Date/Time Provider Initiated Documentation: 09/26/21 16:51 . Limitations to Documentation: no limitations . Information obtained by: patient . HPI Narrative: Patient is a 60-year-old male with a history of morbid obesity, hypertension with a positive Covid diagnosis on August 22 admitted to the hospital with Covid pneumonia and pulmonary embolism who was currently on Xarelto presents for worsening shortness of breath today. His oxygen saturation dropped into the low 80s with exertion today. He states he has had chronic swelling in his legs since his diagnosis of Covid last month but states this is getting progressively worse. He has a dry cough. He denies any fever, vomiting, diarrhea, chest pain or abdominal pain. He finished steroids 5 days ago. He is not on home oxygen. Related Data Home Medications Medication Instructions Recorded Confirmed Xarelto 15 mg PO BID #42 tab 09/13/21 09/26/21 albuterol sulfate [Ventolin HFA] 2 puff INHALATION Q4H PRN PRN #6.7 09/13/21 09/26/21 g ascorbic acid (vitamin C) [Vitamin 1,000 mg PO BID #0 tab 09/13/21 09/26/21 C] cholecalciferol (vitamin D3) 2,000 unit PO DAILY #0 tab 09/13/21 09/26/21 famotidine [Pepcid] 20 mg PO BID #20 tab 09/13/21 09/26/21 rivaroxaban 20 mg PO DAILY #30 tab 09/14/21 prednisone See Rx Instructions .ROUTE 09/26/21 .COMPLEX #18 tab Previous Rx's Medication Instructions Recorded Xarelto 15 mg PO BID #42 tab 09/13/21 albuterol sulfate [Ventolin HFA] 2 puff INHALATION Q4H PRN PRN #6.7 09/13/21 g ascorbic acid (vitamin C) [Vitamin 1,000 mg PO BID #0 tab 09/13/21 C] cholecalciferol (vitamin D3) 2,000 unit PO DAILY #0 tab 09/13/21 famotidine [Pepcid] 20 mg PO BID #20 tab 09/13/21 rivaroxaban 20 mg PO DAILY #30 tab 09/14/21 prednisone See Rx Instructions .ROUTE 09/26/21 .COMPLEX #18 tab Allergies Allergy/AdvReac Type Severity Reaction Status Date / Time No Known Allergies Allergy Unverified 09/26/21 16:59 General Stated Complaint: SOB PK: 2 Review of Systems All systems reviewed & are unremarkable except as noted in HPI and below Constitutional Constitutional: Reports as per HPI, Denies chills and Denies fever(s) Eyes Eyes: Denies blurry vision ENT Ears, Nose, Mouth, and Throat: Denies dizziness, Denies sore throat and Denies throat swelling Cardiovascular Cardiovascular: Denies chest pain and Reports dyspnea Respiratory Respiratory: Reports cough and Reports dyspnea Gastrointestinal Gastrointestinal: Denies abdominal pain, Denies diarrhea and Denies vomiting Genitourinary Genitourinary: Denies hematuria and Denies dysuria Musculoskeletal Musculoskeletal: Denies back pain and Denies numbness Integumentary/Breasts Skin/Breast: Denies lesions and Denies rash Neurologic Neurologic: Denies dizziness, Denies localized weakness and Denies numbness Allergic/Immunologic Allergic/Immunologic: Denies throat swelling [facility] Medical History (Updated 09/26/21 @ 19:57 by Dorothy Baird DO) History of hypertension Hyperlipidemia Obesity, morbid, BMI 40.0-49.9 Surgical History (Updated 08/28/21 @ 20:04 by Rossy Richardson MD) Hx of hernia repair L inguinal hernia repair Status post left foot surgery Family History (Updated 08/28/21 @ 20:04 by Rossy Richardson MD) Mother Diabetes Paternal Grandmother Cancer Paternal Aunt Cancer Social History Smoking/Tobacco Use Status: Former Tobacco Use Smoking risk assessment performed?: Yes Alcohol Intake: current Alcohol Intake frequency: a few times a week Alcohol type: beer Drug use: Never Substance use type: does not use Do you feel safe at home: Yes Additional Social history: lives alone Exam Const General: cooperative, healthy appearing and no acute distress HENMT Head: normal to inspection Face and sinus: normal facial exam Eyes General: appearance normal, both eyes and all related structures Pupils: PERRL EOM: EOM intact bilaterally Neck Neck: normal visual inspection and No submandibular swelling Lymphatic: no lymphadenopathy noted Chest Chest: normal inspection of the chest and no tenderness Resp Effort & Inspection: normal respiratory effort and able to speak in complete sentences Auscultation: clear to auscultation bilaterally Cardio Rate: regular rate Rhythm: regular rhythm GI Inspection: normal to inspection Palpation: soft, not firm, not rigid and nontender Auscultation: normal bowel sounds Male General Exam: Yes normal external exam Back/Spine/Pelvis Thoracic/Lumbar Spine: thoracic and lumbar spine normal to inspection Pelvis: no pain with anterior-posterior compression Skin General skin exam: no rashes or lesions noted Neuro General: patient alert, patient awake and patient oriented x3 Cognition: normal cognition Speech: speech normal Motor: muscle tone normal throughout Sensory Exam: no sensory deficits noted Extrem General: normal to inspection, full ROM, capillary refill normal, no calf tenderness bilaterally and no edema Psych Appearance: grossly normal Mental Status: mental status grossly normal Speech and Movement: speech and movement normal Affect: normal affect Course Vital Signs Vital signs: Vital Signs Temperature 97.7 F 09/26/21 16:56 Pulse 118 H 09/26/21 16:56 Respiratory Rate 30 H 09/26/21 16:56 Blood Pressure 146/88 H 09/26/21 16:56 Pulse Oximetry 92 09/26/21 16:56 Temperature 97.7 F 09/26/21 16:56 Temperature Source Temporal Artery Scan 09/26/21 16:56 Pulse 118 H 09/26/21 16:56 Respiratory Rate 30 H 09/26/21 16:56 Respiratory Effort Non-Labored 09/26/21 17:03 Blood Pressure 146/88 H 09/26/21 16:56 Blood Pressure Position Sitting 09/26/21 16:56 Pulse Oximetry 92 09/26/21 16:56 Oxygen Delivery Method Room Air 09/26/21 16:56 Oxygen Flow Rate 0 09/26/21 16:56 Comment 09/26/21 16:56
--- NOTE | 2021-09-26 17:30 | DI.CT_ITS ---
Exam(s) CT CHEST PE CTA EXAM: CT CHEST PE CTA CLINICAL HISTORY: cough, sob, r/o acute disease. TECHNIQUE: Imaging Protocol: Axial CT angiography was performed with multi-slice acquisition and mu lti-planar and/or 3D reconstructions. CONTRAST MATERIAL: Intravenous: Omnipaque 350 Contrast volume:structured data in ml COMPARISON: CT CT CHEST PE CTA from 08/28/2021 FINDINGS: CT angiography of the chest was performed with intravenous infusion of 100 cc of Omnipaque 350. The previously described bilateral predominantly ground-glass pulmonary opacities seen on examination of August 28 are again noted, with moderate interval improvement. Findings are consistent with r esolving pneumonia. No pleural effusion. Tracheobronchial tree appears intact. No evidence of pulmonary embolic disease. Thoracic aorta is of normal diameter, no thoracic aortic an eurysm or dissection, major branch vessels appear intact. No mediastinal or hilar adenopathy. Images obtained through the upper abdomen show hepatic steatosis. Spleen, pancreas, and adrenals daryl ssly unremarkable as visualized. IMPRESSION: Interval improvement in bilateral presumed pneumonia, no evidence of pulmonary embolic disease. RADIATION DOSE DELIVERED: 847.02mGy.cm Total DLP 847.02mGy.cm Total DLP CTDIvol DATA REPOSITORY: All CT scans at this facility are submitted to the National Radiology Data Registry (NRDR) Dose Index Registry (DIR) with the [employer] (ACR). RADIATION OPTIMIZATION: All CT scans at this facility use at least one of these dose optimization te chniques: automated exposure control; mA and/or kV adjustment per patient size (includes targeted exa ms where dose is matched to clinical indication); or iterative reconstruction.
[2021-09-26 17:51] LABS: Source Nasal/Nares
[2021-09-26] MEDS: Omnipaque 350 MG/ML 100 ML BTL IJ (17:52)
[2021-09-26] MEDS: Normal Saline - Diluent 50 ML VIAL IV (17:52)
[2021-09-26 17:56] LABS: Abs Immature Grans 0.03 10^3/uL (0.0-0.06); Absolute Basophil Count 0.01 10^3/uL (0.0-0.2); Absolute Eosinophil Count 0.14 10^3/uL (0.0-0.7); Absolute Lymphocyte Count 1.11 10^3/uL (1.2-3.4); Basophils % 0.2; Eosinophils % 2.1; HCT 37.7 % (40.0-50.0); HGB 12.4 g/dL (13.5-17.5); Immature Grans % 0.5; Lymphocytes % 16.8; MCH 28.8 pg (27.0-33.0); MCHC 32.9 % (32.0-36.0); MCV 87.5 fL (80-95); MPV 10.1 fL (8.0-11.0); Monocytes % 7.6; Neutrophils % 72.8; Nucleated RBC 0 %; Platelet Count 146 10^3/uL (130-400); RBC 4.31 10^6/uL (4.36-5.78); RDW 15.5 % (11.8-14.1); RDW-SD 50.4 fL; WBC 6.59 10^3/uL (4.4-10.8)
[2021-09-26] MEDS: Normal Saline Flush 10 ML SYR IVP (17:56)
[2021-09-26] MEDS: Albuterol/Ipratropium 3 ML UPD VIAL UPD (18:17)
[2021-09-26] MEDS: Normal Saline 1,000 ML 1000 ML IV (18:17)
[2021-09-26] MEDS: methylPREDNISolone SUCC 125 MG VIAL IVP (18:17)
[2021-09-26 18:27] LABS: Albumin 2.4 g/dL (3.4-5.0); Alkaline Phosphatase 92 U/L (46-116); BUN 21 mg/dL (7-18); Bilirubin, Total 0.3 mg/dL (0.2-1.0); Calcium 8.8 mg/dL (8.5-10.1); Chloride 105 mmol/L (98-107); Glucose 142 mg/dL (74-106); Potassium 3.9 mmol/L (3.5-5.1); Total Protein 6.6 g/dL (6.4-8.2)
[2021-09-26 18:28] LABS: Anion Gap 7.6 mmol/L (3-11); CO2 26.4 mmol/L (21.0-32.0); Sodium 139 mmol/L (136-145)
[2021-09-26 18:29] LABS: ALT 98 U/L (16-63); AST 25 U/L (15-37); Magnesium 1.9 mg/dL (1.8-2.4); Troponin I < 0.05 ng/mL (<0.06)
--- NOTE | 2021-09-26 18:32 | DI.VRAD_ITS ---
PROCEDURE INFORMATION: Exam: CTA Chest With Contrast Exam date and time: 09/26/2021 5:36 PM Age: 60 years old Clinical indication: Other: Cough, SOB, R/O acute disease TECHNIQUE: Imaging protocol: Computed tomographic angiography of the chest with contrast. 3D rendering (Not supervised by radiologist): MIP and/or 3D reconstructed images were created by the technologist. Contrast material: OMNIPAQUE 350; Contrast volume: 100 ml; Contrast route: INTRAVENOUS (IV); COMPARISON: CT CHEST PE CTA 08/28/2021 12:27 PM FINDINGS: Pulmonary arteries: Normal. No pulmonary emboli. Aorta: Unremarkable. No aortic aneurysm. No aortic dissection. Lungs: Previously described extensive bilateral ground-glass infiltrates are again seen throughout both lungs. Pleural spaces: Unremarkable. No pneumothorax. No pleural effusion. Heart: No change mild cardiomegaly. Lymph nodes: There is mild to moderate mediastinal adenopathy not significantly changed from previous study. Liver: Fatty liver again seen. Spleen: Splenic calcifications consistent with old granulomatous change. Bones/joints: Unremarkable. No acute fracture. Soft tissues: Unremarkable. Other findings: Respiratory motion limits the exam. IMPRESSION: 1. No evidence for pulmonary embolus. 2. No significant change previously described pulmonary infiltrates. Correlation with COVID-19 status recommended. Dictated and Authenticated by: Mariposa Lenz MD. Ordering:ANITA De La Cruz MD
[2021-09-26 19:07] LABS: COVID-19 PCR Negative (Negative)
[2021-09-26] MEDS: Albuterol HFA 8 GM 60 PUFF INH IH (20:11)
== END 2021-09-26 20:12 | disposition home or self-care (01) ==
PROVIDERS: Emergency Provider Physician Assistant; PCP Physician Assistant
DX: R06.09 Other forms of dyspnea (principal); M79.89 Other specified soft tissue disorders; R05.8 Other specified cough; R09.02 Hypoxemia; U09.9 Post COVID-19 condition, unspecified; Z20.822 Contact with and (suspected) exposure to COVID-19; Z03.818 Encounter for observation for suspected exposure to other biological agents ruled out
CPT/HCPCS: 36415; 71275; 80053; 87635; 93005; 94640; 96361; 96374; 99285; 83735; 84484; 85025; 93010; J2930; J3490; J7620

== ENCOUNTER 2021-10-24 02:16 | Outpatient (CLI) | payer OTHER, SELFPAY ==
--- NOTE | 2021-10-24 09:43 | DI.US_ITS ---
APPROVED REPORT EXAM: Comprehensive 2D, Doppler, and color-flow Echocardiogram Patient Location: Out-Patient Territory Representative: Jana Brush RDCS (AE) Indications: DORANTES Other Information Study Quality: Fair. Technically limited study due to body habitus. Conclusion Normal left ventricular wall thickness and chamber size. Estimated ejection fraction is 60%. Wall m otion is normal Normal right ventricular size and systolic function Both atria are normal in size There is no structural or hemodynamically significant valvular disease Dilated ascending aorta measuring 3.95 cm Wall motion Left Ventricle The left ventricle is normal size. The left ventricular systolic function is normal. The left ventric ular ejection fraction is within the normal range. There is normal left ventricular wall thickness. T here is normal LV segmental wall motion. There is no ventricular septal defect visualized. LVEF is 60 %. Right Ventricle The right ventricle is normal size. The right ventricular systolic function is normal. Atria The left atrium size is normal. The right atrium size is normal. The interatrial septum is intact wit h no evidence for an atrial septal defect. Aortic Valve The aortic valve is normal in structure. There is no aortic valvular stenosis. No aortic regurgitatio n is present. Mitral Valve The mitral valve is normal in structure. No evidence of mitral valve stenosis. Trace mitral regurgita tion. Tricuspid Valve The tricuspid valve is normal in structure. There is no tricuspid valve stenosis. Trace tricuspid reg urgitation. Unable to assess PA pressure. Pulmonic Valve Pulmonic valve is not well visualized. There is no pulmonic valvular stenosis. There is no pulmonic v alvular regurgitation. Great Vessels The aortic root is normal in size. The ascending aorta is mildly dilated.3.95 cm Aortic arch is not w ell visualized. IVC is normal in size and collapses >50% with inspiration. IVC is normal in size and collapses >50% with inspiration. Pericardium There is no pericardial effusion. 2D Dimensions IVSD d PLAX 1.24 cm M: 0.6-1.2 LV Vol A2C d MOD 186.9 mL LVPW d PLAX 1.21 cm M: 0.6 - 1.2 LV Vol A4C d MOD 186.1 mL LVID d PLAX 4.81 cm M: 4.2 - 5.8 LV EF A4C MOD 60.0 % LVDs 3.25 cm M: 2.5 - 4.0 LV EF A2C MOD 59.4 % Ao Root d 3.11 cm M: 3.1 - 3.7 LV EF Biplane MOD 59.5 % Ao Asc Diam d 3.95 cm M: 2.6 - 3.4 SV 111.28 mL LV EF Teichholz 59.7 % SV Index 39.50 mL/m2 LVEF (Reed's) 59.47 % M: 52 - 72 LV Volume 126.77 mL M: 62 - 150 LV Volume Index 45.11 mL/m2 M: 34 - 74 LV Vol Biplane MOD 187.1 mL FS 31.75 % M-Mode TAPSE 2.48 cm (M/F) >1.7 LV Diastology MV E' medial 0.090 (>0.07 m/s) E/A Ratio 0.8 LV E/e MED 6.90 (<14) MV E Vmax 0.63 (0.4-1.3 m/s) MV E' lateral 0.065 (>0.1 m/s) MV A Vmax 0.75 (0.4-1.3 m/s) LV E/e LAT 9.65 (<14) MV E/A Ratio 0.83 MV E/E' medial 6.92 MV E/E' lateral 9.66 Aortic Valve LVOT Area 3.60 cm2 AoV Area Vmax 3.11 cm2 LVOT Vmax 1.08 m/s AoV Area/ BSA (Vmax) 1.10 cm2/m2 LVOT Mean John Paul. 0.67 m/s BENEDICT Mean John Paul. 2.72 cm2 LVOT Peak Grad 4.7 mmHg BENEDICT Mean John Paul. Index 0.97 cm2/m2 LVOT Mean Grad 2.2 mmHg LVOT VTI 0.175 m LVOT Diam s 2.10 cm AoV Vmax 1.25 m/s Velocity Ratio 0.86 AoV Mean John Paul. 0.89 m/s AoV Peak Grad 6.3 mmHg LVOT SV 63.02 mL AoV Mean Grad 3.4 mmHg AoV VTI 0.210 m AoV Area VTI 3.00 cm2 AoV Area/ BSA (VTI) 1.06 cm/m2 Mitral Valve MV DT 433 (160-240 msec) MV PHT 126 msec MV Area PHT 1.75 cm2 MV VTI 0.170 m MV Area VTI 3.72 (4.0-6.0 cm2) Pulmonary Valve PV Vmax 1.30 (0.5-1.5 m/s) RVOT Peak Gr. 2.30 mmHg PV Peak Grad 6.7 mmHg RVOT Mean Gr. 1.15 mmHg PV Mean Grad 3.0 mmHg RVOT VTI 0.128 m PV VTI 0.210 m RVOT Vmax 0.76 m/s
== END 2021-10-24 02:36 ==
PROVIDERS: PCP Physician Assistant; Visit Provider Physician Assistant
DX: R06.09 Other forms of dyspnea (principal); I77.810 Thoracic aortic ectasia
CPT/HCPCS: 93306

== ENCOUNTER 2022-03-04 17:10 | Outpatient (REF) | payer OTHER, SELFPAY ==
[2022-03-04 23:59] LABS: Hemoglobin A1C 5.6 % (<5.7)
[2022-03-05] LABS: ALT 42 U/L (16-63); AST 19 U/L (15-37); Albumin 3.6 g/dL (3.4-5.0); Alkaline Phosphatase 91 U/L (46-116); BUN 15 mg/dL (7-18); Bilirubin, Total 0.3 mg/dL (0.2-1.0); Calcium 8.7 mg/dL (8.5-10.1); Calculated LDL 137 mg/dL (<100); Chloride 106 mmol/L (98-107); Cholesterol 228 mg/dL (<200); Glucose 106 mg/dL (74-106); HDL Cholesterol 63 mg/dL (40-60); Potassium 4.1 mmol/L (3.5-5.1); Sodium 143 mmol/L (136-145); Total Protein 6.8 g/dL (6.4-8.2); Triglyceride 144 mg/dL (<150)
[2022-03-05 19:01] LABS: PSA, Screening 0.8 ng/mL (<=4.5)
== END 2022-03-04 17:11 | disposition home or self-care (01) ==
LOC: NCHCN 17:10
PROVIDERS: PCP Physician Assistant; Visit Provider Physician Assistant
DX: I10 Essential (primary) hypertension (principal); R73.03 Prediabetes; Z12.5 Encounter for screening for malignant neoplasm of prostate
CPT/HCPCS: 80053; 80061; 84153; 83036

== ENCOUNTER 2023-04-02 10:51 | Outpatient (CLI) | payer OTHER, SELFPAY ==
--- NOTE | 2023-04-02 10:30 | DI.RAD_ITS ---
Exam(s) XR HAND LT COMPLETE EXAM: XR HAND LT COMPLETE CLINICAL HISTORY: L hand injury. TECHNIQUE: 2D digital imaging was performed of the left hand. Three views were obtained. AP, later al and oblique views were obtained. COMPARISON: No exams were available for comparison FINDINGS: BONES: No acute fracture is present. No bony destructive lesion is seen. JOINTS: No dislocation present. SOFT TISSUE: Normal. IMPRESSION: Unremarkable radiographs of the left hand. DATA REPOSITORY: RADIATION DOSE DELIVERED:
== END 2023-04-02 10:52 | disposition home or self-care (01) ==
LOC: DIORS 10:51
PROVIDERS: PCP Physician Assistant; Referring Provider Physician Assistant; Visit Provider Physician Assistant
DX: S69.92XA Unspecified injury of left wrist, hand and finger(s), initial encounter (principal); X58.XXXA Exposure to other specified factors, initial encounter
CPT/HCPCS: 73130